=== PATIENT | female | born 1940 | race Hispanic/Latino ===

== ENCOUNTER 2016-10-03 14:31 | Inpatient (IN) | payer MEDICARE, OTHER ==
[2016-10-03 14:35] VITALS: BMI 44.9
--- NOTE | 2016-10-03 14:36 | ED PDOC ---
Arrival/HPI - General Time Seen by Provider: 10/03/16 14:32 Historian: Patient - History of Present Illness Narrative History of Present Illness (Text): 10/03/16 14:36 76 y/o female, pmh including varicose vein/obesity/copd/dm/hyperlipidemia/htn/ adrenal adenoma, nkda, biba c/o Rt. lower leg redness/swelling and pain started for the past 2 days. Pt. stated that she has chronic pedal edema, rt. lower extremity has been having skin breaking with redness, painful to touch and admits feeling warm, no fever or chills, no night sweat, painful to walk, no toe discoloration. Pt. went to see Dr. Phelps this afternoon and refer to the ER for further evaluation, no other medical or psychological complaints. Past Medical History - Provider Review Nursing Documentation Reviewed: Yes - Infectious Disease Hx of Infectious Diseases: None - Cardiac Hx Hypertension: Yes Hx Peripheral Edema: Yes Hx Peripheral Vascular Disease: Yes - Pulmonary Hx Chronic Obstructive Pulmonary Disease (COPD): Yes - Neurological Hx Neurological Disorder: No - HEENT Hx Cataracts: Yes (RIGHT EYE) - Renal Hx Renal Disorder: No - Endocrine/Metabolic Hx Diabetes Mellitus Type 2: Yes - Hematological/Oncological Hx Blood Disorders: No - Integumentary Hx Dermatological Disorder: No - Musculoskeletal/Rheumatological Hx Arthritis: Yes Hx Back Pain: Yes Hx Unsteady Gait: Yes - Gastrointestinal Hx Gastrointestinal Disorders: Yes (HERNIA) - Genitourinary/Gynecological Hx Genitourinary Disorders: Yes Hx Incontinence: Yes (URGE) Hx Reproductive Disorders: No - Psychiatric Hx Psychophysiologic Disorder: No Hx Substance Use: No - Surgical History Hx Cholecystectomy: Yes Hx Hysterectomy: Yes - Anesthesia Hx Anesthesia: Yes Hx Anesthesia Reactions: No Hx Malignant Hyperthermia: No - Suicidal Assessment Feels Threatened In Home Enviroment: No Family/Social History - Physician Review Nursing Documentation Reviewed: Yes Family/Social History: Unknown Family HX Smoking Status: Heavy Smoker > 10 Cigarettes Daily Hx Alcohol Use: No Hx Substance Use: No Allergies/Home Meds Allergies/Adverse Reactions: Allergies No Known Allergies Allergy (Verified 02/18/16 12:34) Home Medications: Home Meds Medication Instructions Recorded Confirmed Metformin HCl 1,000 mg PO BID 07/15/11 10/03/16 Rosuvastatin Calcium [Crestor] 10 mg PO DAILY 07/15/11 10/03/16 Fluticasone/Salmeterol 250/50 1 puff NEB PRN PRN 04/26/14 10/03/16 [Advair Diskus 250/50] Tiotropium [place] Inhaler 1 cap NEB DAILY 04/26/14 10/03/16 [Spiriva Inhalation Handihaler Device] Glipizide [Glipizide ER] 5 mg PO BID 02/18/16 10/03/16 Lisinopril [Zestril] 40 mg PO BID 02/18/16 10/03/16 Review of Systems - Review of Systems Constitutional: absent: Fatigue, Fevers Eyes: absent: Vision Changes ENT: absent: Hearing Changes Respiratory: Cough. absent: SOB, Sputum, Wheezing Cardiovascular: absent: Chest Pain Gastrointestinal: absent: Abdominal Pain, Nausea, Vomiting Genitourinary Female: absent: Dysuria Musculoskeletal: absent: Arthralgias Skin: Rash, Skin Lesions, Cellulitis. absent: Pruritis, Laceration, Abscess, Ulcer Neurological: absent: Headache, Dizziness Physical Exam Vital Signs Temp Pulse Resp BP Pulse Ox 10/03/16 18:05 85 19 139/62 93 L 10/03/16 15:18 98.8 F 80 19 168/92 H 94 L 10/03/16 14:35 98.8 F 80 19 168/92 H 94 L Temperature: Afebrile Blood Pressure: Hypertensive Pulse: Regular Respiratory Rate: Normal Appearance: Positive for: Ill-Appearing, Unkept, Uncomfortable Pain Distress: Severe Mental Status: Positive for: Alert and Oriented X 3 - Systems Exam Head: Present: Atraumatic, Normocephalic Pupils: Present: PERRL Extroacular Muscles: Present: EOMI Conjunctiva: Present: Normal Mouth: Present: Moist Mucous Membranes Neck: Present: Normal Range of Motion Respiratory/Chest: Present: Clear to Auscultation, Good Air Exchange. No: Respiratory Distress, Accessory Muscle Use Cardiovascular: Present: Regular Rate and Rhythm, Normal S1, S2, Other (2+ pedal edema noted on the bilateral lower extremities. ). No: Murmurs Abdomen: Present: Normal Bowel Sounds. No: Tenderness, Distention, Peritoneal Signs Back: Present: Normal Inspection Upper Extremity: Present: Normal Inspection. No: Cyanosis, Edema Lower Extremity: Present: Normal Inspection, Other (+Rt. lower extremity with skin breaking with redness and cellulitis along with clear fluid discharge noted with no dark skin discoloration, +streaking cellulitis from the proximal 1 /3 cellulitis to the rt. dorsum foot. ). No: Edema Neurological: Present: GCS=15, Speech Normal, Motor Func Grossly Intact, Memory Normal Skin: Present: Warm, Dry, Normal Color. No: Rashes Psychiatric: Present: Alert, Oriented x 3, Normal Insight, Normal Concentration Medical Decision Making ED Course and Treatment: 10/03/16 14:46 -labs/blood culture -Chest and rt. tibia/fibula xray -RLE venuous doppler -IV vancomycin/zosyn/morphine 2mg -Observe and reassess 10/03/16 16:02 -EKG : NSR @ 78 BPM, no ST elevation or depression, no T wave inversion. -Chest x-ray show no active disease, +COPD noted -Rt. tibia/fibula xray: soft tissue swelling, no other significant acute findings. -RLE Venuous doppler: as per preliminary report, no acute DVT -Labs are non-significant -Pt. will need to be admitted for IV antibiotics due to the high risk factor for MRSA and worsening of the cellulitis due to the multiple comorbitiditie with poor wound healing. -I discussed with the patient, and she agreed to be admitted. 10/03/16 16:02 -I spoke to Dr. Beauchamp and Dr. Louise, discussed labs/radiology results in detail, agreed on the admission -Dr. Louise will put in the admission. - Lab Interpretations Microbiology Results: Microbiology Results 10/03/16 15:15 Blood-Venous Blood Culture - Preliminary NO GROWTH AFTER 3 DAYS 10/03/16 14:45 Blood-Venous Blood Culture - Preliminary NO GROWTH AFTER 3 DAYS Lab Results: 10/03/16 14:45 10/03/16 14:45 Lab Results 10/03/16 15:17: Urine Color Yellow, Urine Appearance Clear, Urine pH 6.0, Ur Specific [place] 1.010, Urine Protein Trace H, Urine Glucose (UA) Negative, Urine Ketones Negative, Urine Blood Trace-lysed H, Urine Nitrate Negative, Urine Bilirubin Negative, Urine Urobilinogen 0.2, Ur Leukocyte Esterase Negative , Urine RBC 0 - 2, Urine WBC 1 - 3, Ur Epithelial Cells 0 - 2 10/03/16 15:10: POC Glucose (mg/dL) 66 10/03/16 14:45: Sodium 139, Potassium 3.9, Chloride 104, Carbon Dioxide 26, Anion Gap 13, BUN 8, Creatinine 0.6, Est GFR ( Amer) > 60, Est GFR (Non- Af Amer) > 60, Random Glucose 73, Calcium 9.4, Total Bilirubin 0.7, AST 20, ALT 24, Alkaline Phosphatase 72, NT-Pro-B Natriuret Pep 312, Total Protein 7.6, Albumin 3.9, Globulin 3.7, Albumin/Globulin Ratio 1.1 10/03/16 14:45: WBC 9.4, RBC 4.59, Hgb 13.6, Hct 41.1, MCV 89.5, MCH 29.6, MCHC 33.1, RDW 13.8, Plt Count 301, MPV 9.1, Gran % 65.2, Lymph % (Auto) 27.4, Kings % (Auto) 5.9, Eos % (Auto) 1.3 L, Baso % (Auto) 0.2, Gran # 6.11, Lymph # 2.6, Kings # 0.6, Eos # 0.1, Baso # 0.02 I have reviewed the lab results: Yes Interpretation: No clinic. lab abnormalty - RAD Interpretation Radiology Orders: 10/03/16 14:40 CHEST PORTABLE [RAD] Stat 10/03/16 14:42 DUPLEX LOWER EXTRM VEIN RIGHT [US] Stat RLE Venuous doppler: as per preliminary report, no acute dvt Chest x-ray: no active disease Rt. Tibia/fibula: soft tissue swelling, no other significant acute findings. 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 - EKG Interpretation Interpreted by ED Physician: Yes Type: 12 lead EKG - Medication Orders Current Medication Orders: Discontinued Medications Acetaminophen (Tylenol 325mg Tab) 650 mg PO Q4H PRN PRN Reason: Pain, Mild (1-3) Arformoterol Tartrate (Brovana) 15 mcg [facility]H [id number] [facility] Last Admin: 10/06/16 07:45 Dose: 15 mcg Atorvastatin Calcium (Lipitor) 40 mg PO DAILY [facility] Last Admin: 10/06/16 09:28 Dose: 40 mg Budesonide (Pulmicort Respules) 0.5 mg IH [id number] [facility] Last Admin: 10/06/16 07:46 Dose: 0.5 mg Furosemide (Lasix) 20 mg PO BID [facility] Last Admin: 10/06/16 09:29 Dose: 20 mg Glipizide (Glucotrol Xl) 5 mg PO BID [facility] Last Admin: 10/06/16 09:28 Dose: 5 mg Vancomycin HCl (Vancomycin 1gm) 1 gm in 250 mls @ 167 mls/hr IVPB STAT STA PRN Reason: Protocol Stop: 10/03/16 16:09 Last Admin: 10/03/16 15:31 Dose: 167 mls/hr Piperacillin Sod/Tazobactam Sod (Zosyn 3.375 In Ns 100ml) 100 mls @ 200 mls/hr IVPB STAT STA PRN Reason: Protocol Stop: 10/03/16 15:09 Last Admin: 10/03/16 14:58 Dose: 200 mls/hr Vancomycin HCl (Vancomycin 750 Mg In Ns) 750 mg in 250 mls @ 167 mls/hr IVPB Q12H ALEXANDRE PRN Reason: Protocol Last Admin: 10/06/16 05:29 Dose: 167 mls/hr Meropenem 1g/NS 100mL IVPB (Meropenem 1g/Ns 100ml Ivpb) 1 gm in 100 mls @ 100 mls/hr IVPB Q12 ALEXANDRE PRN Reason: Protocol Stop: 10/10/16 23:01 Last Admin: 10/06/16 09:30 Dose: 100 mls/hr Insulin Human Regular (Humulin R Low) 0 units SC ACHS ALEXANDRE PRN Reason: Protocol Last Admin: 10/06/16 08:07 Dose: Not Given Non-Admin Reason: Blood Sugar Parameter Lisinopril (Zestril) 40 mg PO BID [facility] Last Admin: 10/06/16 09:28 Dose: 40 mg Morphine Sulfate (Morphine) 2 mg IVP STAT STA Stop: 10/03/16 14:45 Last Admin: 10/03/16 14:59 Dose: 2 mg Nicotine (Nicoderm Cq) 1 patch TD DAILY [facility] Last Admin: 10/06/16 09:28 Dose: 1 patch Oxycodone/Acetaminophen (Percocet 5/325 Mg Tab) 1 tab PO Q4H PRN PRN Reason: Pain, moderate (4-7) Stop: 10/06/16 18:23 Last Admin: 10/05/16 18:07 Dose: 1 tab Pneumococcal Polyvalent Vaccine (Pneumovax 23 Vaccine) 0.5 ml IM .ONCE ONE Stop: 10/03/16 23:36 Tiotropium [place] (Spiriva) 18 mcg INH DAILY [facility] Last Admin: 10/06/16 09:28 Dose: 18 mcg - PA / 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 Disposition/Present on Arrival - Present on Arrival Any Indicators Present on Arrival: No History of DVT/PE: No History of Uncontrolled Diabetes: No Urinary Catheter: No History of Decub. Ulcer: No History Surgical Site Infection Following: None - Disposition Have Diagnosis and Disposition been Completed?: Yes Diagnosis: Cellulitis, Pedal edema Disposition: HOSPITALIZED Disposition Time: 14:47 Patient Plan: Admission Condition: STABLE
[2016-10-03] MEDS ORDERED: Vancomycin 1gm in NS 250ml 1 GM/250 ML BAG IVPB STA (14:40)
[2016-10-03] MEDS ORDERED: Piperacillin/Tazobact 3.375 gm 100 ML IVPB STA (14:40)
[2016-10-03] MEDS ORDERED: Morphine 2 mg/ml ISec IVP STA (14:44)
[2016-10-03 15:02] LABS: BASO # 0.02 K/mm3 (0.0-2.0); BASO % 0.2 % (0.0-3.0); EOS # 0.1 (0.0-0.7); EOS % 1.3 % (1.5-5.0); GRAN # 6.11 (1.4-6.5); GRAN % 65.2 % (50.0-68.0); HEMOGLOBIN 13.6 gm/dL (12.0-16.0); LYMPH # 2.6 (1.2-3.4); LYMPH % 27.4 % (22.0-35.0); MEAN CELL VOLUME 89.5 fL (80.0-105.0); MEAN CORPUSCULAR HEMOGLOBIN 29.6 pg (25.0-35.0); MEAN CORPUSCULAR HGB CONC 33.1 g/dl (31.0-37.0); MEAN PLATELET VOLUME 9.1 fl (7.0-11.0); MONO # 0.6 (0.1-0.6); MONO % 5.9 % (1.0-6.0); PLATELET COUNT 301 10^3/uL (120.0-450.0); RBC 4.59 10^6/uL (3.5-6.1); RED CELL DISTRIBUTION WIDTH 13.8 % (11.5-14.5); WHITE BLOOD COUNT 9.4 10^3/ul (4.5-11.0)
[2016-10-03 15:10] LABS: ALB/GLOB RATIO 1.1 (1.1-1.8); ALBUMIN 3.9 g/dL (3.0-4.8); ALT/SGPT 24 U/L (7-56); AST/SGOT 20 U/L (15-39); BLOOD UREA NITROGEN 8 mg/dL (7-21); CALCIUM 9.4 mg/dL (8.4-10.5); GFR AFRICAN-AMERICAN > 60; GFR NON-AFRICAN AMERICAN > 60
[2016-10-03 15:17] LABS: B-TYPE NATRIURETIC PEPTIDE 312 pg/mL (0-450)
[2016-10-03 15:38] LABS: URINE BILIRUBIN NEGATIVE (NEGATIVE); URINE BLOOD TRACE-LYSED (NEGATIVE); URINE GLUCOSE (UA) NEGATIVE (NEGATIVE); URINE LEUKOCYTE ESTERASE NEGATIVE Leu/uL (NEGATIVE); URINE NITRATE NEGATIVE (NEGATIVE); URINE PROTEIN TRACE mg/dL (<30 mg/dL); URINE UROBILINOGEN 0.2 E.U./dL (<1 E.U./dL)
[2016-10-03 15:41] LABS: URINE APPEARANCE CLEAR (CLEAR); URINE COLOR YELLOW (YELLOW)
[2016-10-03 15:56] LABS: URINE EPITHELIAL CELLS 0 - 2 /hpf (0-5); URINE RBC 0 - 2 /hpf (0-2)
--- NOTE | 2016-10-03 17:44 | RAD ---
PROCEDURE: Radiographs of the right tibia and fibula. HISTORY: rt. tibia cellulitis COMPARISON: None available. TECHNIQUE: Frontal and lateral views obtained. FINDINGS: BONES: No fracture or destructive lesion. JOINT SPACES: Unremarkable. OTHER FINDINGS: Diffuse calf edema, soft tissue swelling IMPRESSION: Soft tissue swelling without acute articular or significant osseous abnormality. Concordant results with the preliminary interpretation rendered by the emergency department physician procedure.
[2016-10-03] MEDS: GlipiZIDE 5 mg SR Tab PO SCH (18:48)
[2016-10-03] MEDS: Oxycodone/Acetaminophen 5/325 mg Tab PO PRN (21:27)
[2016-10-03] MEDS: Insulin Reg-LOW-Coverage SC SCH (22:29)
[2016-10-03] MEDS ORDERED: Pneumococcal 23-Valent Vaccine IM ONE (23:35)
[2016-10-03] MEDS: Meropenem 1g/NS 100mL IVPB 1 GM/100 ML PIGGYBACK IVPB SCH (23:48)
[2016-10-04] MEDS: Vancomycin 750mg 750 MG/250 ML BAG IVPB SCH ×2 (05:22→17:28)
[2016-10-04] MEDS: Arformoterol 15 mcg/2 ml Inh Sol IH SCH ×2 (07:43→21:33)
[2016-10-04] MEDS: Budesonide 0.5 mg/2 ml Inhal Susp UD IH SCH ×2 (07:44→21:35)
[2016-10-04] MEDS: Insulin Reg-LOW-Coverage SC SCH ×4 (08:15→21:19)
[2016-10-04] MEDS ORDERED: Fluticasone-Salmeterol 250-50mcg Diskus INH SCH (10:00)
[2016-10-04] MEDS: Tiotropium 18 mcg Cap For Inhalation INH SCH (10:13)
[2016-10-04] MEDS: GlipiZIDE 5 mg SR Tab PO SCH ×2 (10:13→17:29)
--- NOTE | 2016-10-04 10:39 | CARD ---
APPROVED REPORT EKG Measurement Heart [id number] [place] 148P [id number] <Conclusion> Normal sinus rhythm PRWP Nonspecific ST abnormality No change
--- NOTE | 2016-10-04 12:28 | RAD ---
HISTORY: medical clearance COMPARISON: 02/18/2016 FINDINGS: LUNGS: No active pulmonary disease. PLEURA: No significant pleural effusion identified, no pneumothorax apparent. CARDIOVASCULAR: Mild cardiomegaly OSSEOUS STRUCTURES: No significant abnormalities. VISUALIZED UPPER ABDOMEN: Normal. OTHER FINDINGS: None. IMPRESSION: No active disease.
--- NOTE | 2016-10-04 13:58 | US ---
PROCEDURE: Right lower extremity venous US HISTORY: Leg pain and swelling. Evaluate for DVT. PHYSICIAN(S): Kenny Burden M.D. TECHNIQUE: Duplex sonography and color-flow Doppler with graded compression were used to evaluate the deep venous system of the right lower extremity. The exam is limited by edema. The tibial veins are not well seen FINDINGS: The visualized deep venous system of the right lower extremity is sonographically normal and compressible. Normal waveforms and augmentation are seen. There is no sonographic evidence for deep venous thrombosis in the visualized segments of the right lower extremity. IMPRESSION: 1. No sonographic evidence for deep venous thrombosis in the visualized segments of the right lower extremity. 2. Limited study
--- NOTE | 2016-10-04 14:01 | CP.PCM.CON ---
History of Present Illness - History of Present Illness History of Present Illness: 76 year old female with PMH of hypertension, bilateral lower extremity edema, peripheral vascular disease, diabetes, hyperlipidemia, varicose veins, adrenal adenoma, and osteoarthritis, history of right lower extremity cellulitis, morbid obesity with BMI 45 came in to [facility] complaining of pain and swelling of her right lower extremity associated with redness. She denies specific trauma to the leg, no soaking of legs in water, no swimming, no trips to the [place], denies insect or tick bites. She has a dog at home but has no history of scratches or bites from her dog. She denies fever or chills, no nausea or vomiting, no chest pain, no SOB, no headache or dizziness, no diarrhea , no dysuria, no abdominal pain. Infectious diseases consult is requested to further evaluate and manage. Review of Systems - Review of Systems All systems: reviewed and no additional remarkable complaints except (as per HPI ) Past Patient History - Infectious Disease Hx of Infectious Diseases: None - Past Social History Smoking Status: Heavy Smoker > 10 Cigarettes Daily - CARDIAC Hx Hypertension: Yes Hx Peripheral Edema: Yes Hx Peripheral Vascular Disease: Yes - PULMONARY Hx Chronic Obstructive Pulmonary Disease (COPD): Yes - NEUROLOGICAL Hx Neurological Disorder: No - HEENT Hx Cataracts: Yes (RIGHT EYE) - RENAL Hx Chronic Kidney Disease: No - ENDOCRINE/METABOLIC Hx Diabetes Mellitus Type 2: Yes - HEMATOLOGICAL/ONCOLOGICAL Hx Blood Disorders: No - INTEGUMENTARY Hx Dermatological Problems: No - MUSCULOSKELETAL/RHEUMATOLOGICAL Hx Arthritis: Yes Hx Back Pain: Yes Hx Unsteady Gait: Yes - GASTROINTESTINAL Hx Gastrointestinal Disorders: Yes (HERNIA) - GENITOURINARY/GYNECOLOGICAL Hx Genitourinary Disorders: Yes Hx Incontinence: Yes (URGE) Hx Reproductive Disorders: No - PSYCHIATRIC Hx Psychophysiologic Disorder: No Hx Substance Use: No - SURGICAL HISTORY Hx Cholecystectomy: Yes Hx Hysterectomy: Yes - ANESTHESIA Hx Anesthesia: Yes Hx Anesthesia Reactions: No Hx Malignant Hyperthermia: No Meds Allergies/Adverse Reactions: Allergies Allergy/AdvReac Type Severity Reaction Status Date / Time No Known Allergies Allergy Verified 02/18/16 12:34 - Medications Medications: Current Medications Acetaminophen (Tylenol 325mg Tab) 650 mg PO Q4H PRN PRN Reason: Pain, Mild (1-3) Arformoterol Tartrate (Brovana) 15 mcg IH [id number] ALEXANDRE Atorvastatin Calcium (Lipitor) 40 mg PO DAILY ALEXANDRE Budesonide (Pulmicort Respules) 0.5 mg IH [id number] ALEXANDRE Furosemide (Lasix) 20 mg PO BID ALEXANDRE Glipizide (Glucotrol Xl) 5 mg PO BID [facility] Last Admin: 10/03/16 18:48 Dose: 5 mg Insulin Human Regular (Humulin R Low) 0 units SC ACHS ALEXANDRE PRN Reason: Protocol Last Admin: 10/03/16 22:29 Dose: Not Given Lisinopril (Zestril) 40 mg PO BID [facility] Oxycodone/Acetaminophen (Percocet 5/325 Mg Tab) 1 tab PO Q4H PRN PRN Reason: Pain, moderate (4-7) Stop: 10/06/16 18:23 Last Admin: 10/03/16 21:27 Dose: 1 tab Tiotropium [place] (Spiriva) 18 mcg INH DAILY [facility] Physical Exam - Constitutional Appears: Non-toxic, No Acute Distress - Head Exam Head Exam: NORMAL INSPECTION - ENT Exam ENT Exam: Mucous Membranes Moist - Neck Exam Neck exam: Negative for: Lymphadenopathy, Meningismus - Respiratory Exam Respiratory Exam: Decreased Breath Sounds - Cardiovascular Exam Cardiovascular Exam: +S1, +S2 - GI/Abdominal Exam GI & Abdominal Exam: Soft. absent: Tenderness - Extremities Exam Additional comments: right leg with anterior erythema, swelling, and some tenderness noted Results - Vital Signs Recent Vital Signs: Last Vital Signs Temp 98.8 F 10/03/16 15:18 Pulse 85 10/03/16 18:05 Resp 19 10/03/16 18:05 BP 139/62 10/03/16 18:05 Pulse Ox 93 L 10/03/16 18:05 - Labs Result Diagrams: 10/03/16 14:45 10/03/16 14:45 Labs: Laboratory Results - last 24 hr 10/03/16 21:47 POC Glucose (mg/dL) 256 H Assessment & Plan - Assessment and Plan (Free Text) Plan: Assessment Right lower extremity skin and skin structure infection, R/O DVT history of right foot skin and skin structure infection with associated ankle ulcer with wound cx from 02/06/2016 growing MRSA and Pseudomonas hypertension bilateral lower extremity edema peripheral vascular disease diabetes hyperlipidemia varicose veins adrenal adenoma osteoarthritis history of right lower extremity cellulitis morbid obesity Plan based on previous cultures, we have started the patient on Vancomycin and Merrem pending blood cx follow up doppler ultrasound of the legs to rule out DVT will monitor clinically
[2016-10-04] MEDS: Oxycodone/Acetaminophen 5/325 mg Tab PO PRN ×2 (15:32→20:19)
--- NOTE | 2016-10-04 15:48 | CON ---
DATE: 10/03/2016 HISTORY OF PRESENT ILLNESS: This is a 76-year-old women admitted, because of progressive lower extremity edema and cellulitis seen in Dr. Phelps's office and referred to the emergency room for evaluation and treatment. She states that the legs have become more swollen and painful and there has been some weeping from the skin lesions. She has chronic lower extremity edema, peripheral arterial disease and ulcerations. There was no chest pain. There is chronic dyspnea on exertion, which has not changed. There is no orthopnea, PND, syncope, presyncope, lightheadedness, dizziness, vertigo, palpitations, fevers, chills, cough, sputum production, hemoptysis, abdominal pain, nausea, vomiting, diarrhea, constipation, or melena. PAST MEDICAL HISTORY: Notable for COPD. She is a current one pack per day smoker. She has a history of diabetes, hypertension, hyperlipidemia, obesity, peripheral arterial disease with ulcerations right foot, varicose veins , osteoarthritis, cataracts, but no rheumatic fever, myocardial infarction, angina, congestive heart failure, stroke, TIA or gout. MEDICATIONS: At the time of admission included Advair, Crestor, glipizide, Lasix, metformin, Spiriva and Zestril. ALLERGIES: THERE ARE NO KNOWN MEDICATION ALLERGIES. SOCIAL HISTORY: She lives at home. She does not drink alcohol significantly. She smokes about one pack of cigarettes per day. She is not very ambulatory. FAMILY HISTORY: Noncontributory. REVIEW OF SYSTEMS: A 10-point review of systems otherwise was unremarkable, except as noted above. PHYSICAL EXAMINATION: GENERAL: She is a well-developed elderly women, sitting on the bed from 3 hour in no acute distress. VITAL SIGNS: Notable for pulse of 66, she is a afebrile, blood pressure 131/60, respirations 19 to 22, O2 sat 90% to 93% on room air. HEENT: Reveals no neck vein distention, thyromegaly or carotid bruits. Mucous membranes moist. Conjunctivae pink. NECK: Supple. LUNGS: Lung elizondo scattered rhonchi. HEART: Reveals distant heart sounds, normal first and second heart sounds. Soft systolic murmur along the left sternal border. PMI not palpable. ABDOMEN: Obsess, bowel sounds present. No mass, organomegaly, tenderness, rebound, guarding, CVA tenderness or palpable abdominal aortic aneurysm. EXTREMITIES: Revealed edema with chronic skin changes. NEUROLOGIC: She is awake, alert, and oriented. PSYCHIATRIC: Normal as to mood and affect. SKIN: Warm and dry with chronic skin changes both lower extremities to the shins. LABORATORY AND IMAGING DATA: A portable chest x-ray is not yet interpreted. I do not see evidence of congestive heat failure, effusion or pneumonia. The EKG demonstrates regular sinus rhythm, poor R wave progression, nonspecific ST wave changes, prolonged QT. No change from prior EKG, lower extremity venous Doppler was done, but the reports are not yet available. CBC is unremarkable. Comprehensive metabolic panel unremarkable. Blood sugars range from 66 to 256. Urinalysis is noted. IMPRESSION: Mi Casarez is a 76-year-old women smoker with chronic obstructive pulmonary disease, obesity, diabetes, hypertension, peripheral arterial disease, chronic lower extremity edema, and stasis changes admitted with worsening lower extremity edema possible cellulitis for evaluation. She is getting Lasix b.i.d., her usual medications have been ordered. I ordered echocardiogram. We should monitor I's and O's and daily weights. She will have ID evaluation. A lower extremity venous Doppler study was done, the results are pending. She has been cultured, she is getting antibiotics. I spoke to her about smoking cessation. I will follow along with you, make additional recommendations based on her clinical course. Alessio Young MD [email or web address]
[2016-10-04] MEDS: Meropenem 1g/NS 100mL IVPB 1 GM/100 ML PIGGYBACK IVPB SCH (21:56)
[2016-10-05] MEDS: Oxycodone/Acetaminophen 5/325 mg Tab PO PRN ×2 (03:30→18:07)
[2016-10-05] MEDS: Vancomycin 750mg 750 MG/250 ML BAG IVPB SCH ×2 (05:14→18:01)
[2016-10-05] MEDS: Arformoterol 15 mcg/2 ml Inh Sol IH SCH ×2 (07:51→21:30)
[2016-10-05] MEDS: Budesonide 0.5 mg/2 ml Inhal Susp UD IH SCH ×2 (07:52→21:30)
--- NOTE | 2016-10-05 08:01 | CP.PCM.PN ---
Subjective - Date & Time of Evaluation Date of Evaluation: 10/05/16 Time of Evaluation: 07:00 - Subjective Subjective: Stable on 3R. No CP or SOB. + edema. V/S noted. Wt.= 262 PE: Lungs: rhonchi Cor.: soft SANGEETA Abd.: obese Ext.: edema;, chronic skin changes, cellulitis Neuro.: alert BC x2 NG at 24 hrs. LE venous Doppler RLE: No DVT Objective - Vital Signs/Intake and Output Vital Signs (last 24 hours): Temp Pulse Resp BP Pulse Ox 98.0 F 85 22 135/47 L 90 L 10/04/16 06:00 10/04/16 07:43 10/04/16 06:00 10/04/16 17:26 10/04/16 06:00 Intake and Output: 10/05/16 10/05/16 06:59 18:59 Intake Total 2280 Balance 2280 - Medications Medications: Current Medications Acetaminophen (Tylenol 325mg Tab) 650 mg PO Q4H PRN PRN Reason: Pain, Mild (1-3) Arformoterol Tartrate (Brovana) 15 mcg IH [id number] [facility] Last Admin: 10/04/16 21:33 Dose: 15 mcg Atorvastatin Calcium (Lipitor) 40 mg PO DAILY [facility] Last Admin: 10/04/16 10:13 Dose: 40 mg Budesonide (Pulmicort Respules) 0.5 mg IH [id number] [facility] Last Admin: 10/04/16 21:35 Dose: 0.5 mg Furosemide (Lasix) 20 mg PO BID [facility] Last Admin: 10/04/16 17:26 Dose: 20 mg Glipizide (Glucotrol Xl) 5 mg PO BID [facility] Last Admin: 10/04/16 17:29 Dose: 5 mg Vancomycin HCl (Vancomycin 750 Mg In Ns) 750 mg in 250 mls @ 167 mls/hr IVPB Q12H [facility]RE PRN Reason: Protocol Last Admin: 10/05/16 05:14 Dose: 167 mls/hr Meropenem 1g/NS 100mL IVPB (Meropenem 1g/Ns 100ml Ivpb) 1 gm in 100 mls @ 100 mls/hr IVPB Q12 [facility]RE PRN Reason: Protocol Stop: 10/10/16 23:01 Last Admin: 10/04/16 21:56 Dose: 100 mls/hr Insulin Human Regular (Humulin R Low) 0 units SC ACHS ALEXANDRE PRN Reason: Protocol Last Admin: 10/04/16 21:19 Dose: Not Given Lisinopril (Zestril) 40 mg PO BID [facility] Last Admin: 10/04/16 17:26 Dose: 40 mg Nicotine (Nicoderm Cq) 1 patch TD DAILY [facility] Last Admin: 10/04/16 20:57 Dose: 1 patch Oxycodone/Acetaminophen (Percocet 5/325 Mg Tab) 1 tab PO Q4H PRN PRN Reason: Pain, moderate (4-7) Stop: 10/06/16 18:23 Last Admin: 10/05/16 03:30 Dose: 1 tab Tiotropium [place] (Spiriva) 18 mcg INH DAILY [facility] Last Admin: 10/04/16 10:13 Dose: 18 mcg Assessment and Plan - Assessment and Plan (Free Text) Assessment: Edema/Cellulitis RLE and foot. H/O cellulitis and ulceration COPD/Smoker Diabetes HLD HBP Obesity OA PAD Venous Insufficiency Plan: As per ID: AB, check cultures PO Lasix Check echo Smoking Cessation
[2016-10-05] MEDS: Insulin Reg-LOW-Coverage SC SCH ×4 (08:27→22:08)
--- NOTE | 2016-10-05 09:11 | CARD ---
APPROVED REPORT EXAM: Two-dimensional and M-mode echocardiogram with Doppler and color Doppler. Other Information Quality : FairRhythm : INDICATION COPD , Edema, Cellulitis. 2D DIMENSIONS IVSd1.2 (0.7-1.1cm)LVDd3.4 (3.9-5.9cm) LVOT Diameter2.2 (1.8-2.4cm)PWd1.2 (0.7-1.1cm) LVDs2.6 (2.5-4.0cm)FS (%) 21.2 % LVEF (%)44.0 (>50%) M-Mode DIMENSIONS Left Atrium (MM)4.40 (2.5-4.0cm)Aortic Root2.90 (2.2-3.7cm) Aortic Cusp Exc.1.90 (1.5-2.0cm) Aortic Valve AoV Peak Nwityqij333.0cm/sAoV VTI61.5cmAO Peak GR.32mmHg LVOT Peak Tvooeikv05.7cm/sLVOT VTI24.40cmAO Mean GR.20mmHg Mitral Valve MV E Vgszqjrp894.0cm/sMV A Bpvkfxft660.0cm/sE/A ratio1.0 TDI Lateral E' Peak V6.04cm/sMedial E' Peak V4.68cm/sE/Lateral E'19.9 E/Medial E'25.6 Tricuspid Valve TR Peak Zqbleaaa300bt/sRAP [id number] Peak Gr.16mmHg [id number] LEFT VENTRICLE The left ventricle is normal size. There is normal left ventricular wall thickness. Left ventricle systolic function is mildly impaired. The Ejection Fraction is 45-50%. RIGHT VENTRICLE The right ventricle is normal size. ATRIA The left atrium is mildly dilated. The right atrium size is normal. The interatrial septum is intact with no evidence for an atrial septal defect. AORTIC VALVE The aortic valve is not well visualized. By Doppler exam there is mild . MITRAL VALVE The mitral valve is normal in structure. Mitral annular calcification is mild. Mitral regurgitation is trace. TRICUSPID VALVE The tricuspid valve is normal in structure. There is trace tricuspid regurgitation. PULMONIC VALVE The pulmonic valve is not well visualized. PERICARDIAL EFFUSION There is no pericardial effusion. <Conclusion> The left ventricle is normal size. There is normal left ventricular wall thickness. Left ventricle systolic function is mildly impaired. The Ejection Fraction is 45-50%. The aortic valve is not well visualized. By Doppler exam there is mild .
[2016-10-05] MEDS: GlipiZIDE 5 mg SR Tab PO SCH ×2 (10:40→18:00)
[2016-10-05] MEDS: Meropenem 1g/NS 100mL IVPB 1 GM/100 ML PIGGYBACK IVPB SCH ×2 (10:41→22:49)
[2016-10-05] MEDS: Tiotropium 18 mcg Cap For Inhalation INH SCH (10:42)
--- NOTE | 2016-10-05 11:48 | CP.PCM.PN ---
Subjective - Date & Time of Evaluation Date of Evaluation: 10/05/16 Time of Evaluation: 10:45 - Subjective Subjective: Comfortable, a little less pain in the legs, no fevers. Objective - Vital Signs/Intake and Output Vital Signs (last 24 hours): Temp Pulse Resp BP Pulse Ox 98.0 F 85 22 135/47 L 90 L 10/04/16 06:00 10/04/16 07:43 10/04/16 06:00 10/04/16 17:26 10/04/16 06:00 Intake and Output: 10/04/16 10/05/16 18:59 06:59 Intake Total 2280 Balance 2280 - Medications Medications: Current Medications Acetaminophen (Tylenol 325mg Tab) 650 mg PO Q4H PRN PRN Reason: Pain, Mild (1-3) Arformoterol Tartrate (Brovana) 15 mcg IH [id number] [facility] Last Admin: 10/04/16 21:33 Dose: 15 mcg Atorvastatin Calcium (Lipitor) 40 mg PO DAILY [facility] Last Admin: 10/04/16 10:13 Dose: 40 mg Budesonide (Pulmicort Respules) 0.5 mg IH [id number] [facility] Last Admin: 10/04/16 21:35 Dose: 0.5 mg Furosemide (Lasix) 20 mg PO BID [facility] Last Admin: 10/04/16 17:26 Dose: 20 mg Glipizide (Glucotrol Xl) 5 mg PO BID [facility] Last Admin: 10/04/16 17:29 Dose: 5 mg Vancomycin HCl (Vancomycin 750 Mg In Ns) 750 mg in 250 mls @ 167 mls/hr IVPB Q12H [facility] PRN Reason: Protocol Last Admin: 10/05/16 05:14 Dose: 167 mls/hr Meropenem 1g/NS 100mL IVPB (Meropenem 1g/Ns 100ml Ivpb) 1 gm in 100 mls @ 100 mls/hr IVPB Q12 [facility] PRN Reason: Protocol Stop: 10/10/16 23:01 Last Admin: 10/04/16 21:56 Dose: 100 mls/hr Insulin Human Regular (Humulin R Low) 0 units SC ACHS [facility] PRN Reason: Protocol Last Admin: 10/04/16 21:19 Dose: Not Given Lisinopril (Zestril) 40 mg PO BID [facility] Last Admin: 10/04/16 17:26 Dose: 40 mg Nicotine (Nicoderm Cq) 1 patch TD DAILY [facility] Last Admin: 10/04/16 20:57 Dose: 1 patch Oxycodone/Acetaminophen (Percocet 5/325 Mg Tab) 1 tab PO Q4H PRN PRN Reason: Pain, moderate (4-7) Stop: 10/06/16 18:23 Last Admin: 10/05/16 03:30 Dose: 1 tab Tiotropium [place] (Spiriva) 18 mcg INH DAILY [facility] Last Admin: 10/04/16 10:13 Dose: 18 mcg - Constitutional Appears: Non-toxic, No Acute Distress - Head Exam Head Exam: NORMAL INSPECTION - ENT Exam ENT Exam: Mucous Membranes Moist - Neck Exam Neck Exam: absent: Meningismus - Respiratory Exam Respiratory Exam: Decreased Breath Sounds - Cardiovascular Exam Cardiovascular Exam: +S1, +S2 - GI/Abdominal Exam GI & Abdominal Exam: Soft. absent: Tenderness - Extremities Exam Additional comments: right leg with anterior erythema, less tenderness on palpation Assessment and Plan - Assessment and Plan (Free Text) Plan: Assessment Right lower extremity skin and skin structure infection, with no evidence of DVT , in a patient with chronic venous stasis dermatitis history of right foot skin and skin structure infection with associated ankle ulcer with wound cx from 02/06/2016 growing MRSA and Pseudomonas hypertension bilateral lower extremity edema peripheral vascular disease diabetes hyperlipidemia varicose veins adrenal adenoma osteoarthritis history of right lower extremity cellulitis morbid obesity Plan continue Vancomycin and Merrem day 2 pending final blood cx results reviewed doppler ultrasound of the legs which did not show DVT will continue to monitor clinically
[2016-10-05 17:03] VITALS: PULSE 78; RESP 20; TEMP 98.7; O2SAT 98
--- NOTE | 2016-10-05 22:27 | CP.PCM.HP ---
History of Present Illness - History of Present Illness History of Present Illness: Ms. Casarez is a 76 year old female admitted with B/L lower ext. swelling and pain. Doppler of right lower ext negative for DVT. She is morbidly obese. She has PVD. adrenal adenoma. DM II on glipizide. She is able to ambulate. No fever. No SOB. Present on Admission - Present on Admission Any Indicators Present on Admission: No Review of Systems - Constitutional Constitutional: As Per HPI, Fatigue, Malaise - EENT Eyes: absent: As Per HPI, Blind Spots, Blurred Vision, Change in Vision, Decreased Night Vision, Diplopia, Discharge, Dry Eye, Exophthalmos, Floaters, Irritation, Itchy Eyes, Loss of Peripheral Vision, Pain, Photophobia, Requires Corrective Lenses, Sees Flashes, Spots in Vision, Tunnel Vision, Other Visual Disturbances, Loss of Vision, Other Nose/Mouth/Throat: absent: As Per HPI, Epistaxis, Nasal Congestion, Nasal Discharge, Nasal Obstruction, Nasal Trauma, Nose Pain, Post Nasal Drip, Sinus Pain, Sinus Pressure, Bleeding Gums, Change in Voice, Dental Pain, Dry Mouth, Dysphagia, Halitosis, Hoarsness, Lip Swelling, Mouth Lesions, Mouth Pain, Odynophagia, Sore Throat, Throat Swelling, Tongue Swelling, Facial Pain, Neck Pain, Neck Mass, Other - Cardiovascular Cardiovascular: As Per HPI - Respiratory Respiratory: absent: As Per HPI, Cough, Dyspnea, Hemoptysis, Dyspnea on Exertion , Wheezing, Snoring, Stridor, Pain on Inspiration, Chest Congestion, Excessive Mucous Production, Change in Mucous Color, Pain with Coughing, Other - Gastrointestinal Gastrointestinal: absent: As Per HPI, Abdominal Pain, Belching, Bloating, Change in Bowel Habits, Change in Stool Character, Coffee Ground Emesis, Constipation, Cramping, Diarrhea, Dyspepsia, Dysphagia, Early Satiety, Excessive Flatus, Fecal Incontinence, Heartburn, Hematemesis, Hematochezia, Loose Stools, Melena, Nausea, Odynophagia, Temesmus, Vomiting, Other - Genitourinary Genitourinary: absent: As Per HPI, Change in Urinary Stream, Difficulty Urinating, Dysuria, Flank Pain, Hematuria, Pyuria, Nocturia, Urinary Incontinence, Urinary Frequency, Urinary Hesitance, Urinary Urgency, Voiding Freq/Small Amts, Freq UTI, Hx Renal/Bladder Calculi, Hx /Renal Surgery, Bladder Distension, Other - Musculoskeletal Musculoskeletal: As Per HPI - Neurological Neurological: absent: As Per HPI, Abnormal Gait, Abnormal Hearing, Abnormal Movements, Abnormal Speech, Behavioral Changes, Burning Sensations, Confusion, Convulsions, Disequilibrium, Dizziness, Numbness, Focal Weakness, Frequent Falls , Headaches, Lack of Coordination, Loss of Vision, Memory Loss, Paresthesias, Radicular Pain, Restless Legs, Sensory Deficit, Syncope, Tingling, Tremor, Vertigo, Weakness, Other Visual Disturbances, Other - Psychiatric Psychiatric: absent: As Per HPI, Abnormal Sleep Pattern, Anhedonia, Anxiety, Auditory Hallucinations, Behavioral Changes, Change in Appetite, Change in Libido, Confusion, Depression, Difficulty Concentrating, Hallucinations, Homicidal Ideation, Hopelessness, Irritability, Memory Loss, Mood Swings, Panic Attacks, Paranoia, Suicidal Ideation, Visual Hallucinations, Tactile Hallucinations, Other - Endocrine Endocrine: As Per HPI - Hematologic/Lymphatic Hematologic: As Per HPI Past Patient History - Infectious Disease Hx of Infectious Diseases: None - Past Social History Smoking Status: Heavy Smoker > 10 Cigarettes Daily - CARDIAC Hx Hypertension: Yes Hx Peripheral Edema: Yes Hx Peripheral Vascular Disease: Yes - PULMONARY Hx Chronic Obstructive Pulmonary Disease (COPD): Yes - NEUROLOGICAL Hx Neurological Disorder: No - HEENT Hx Cataracts: Yes (RIGHT EYE) - RENAL Hx Chronic Kidney Disease: No - ENDOCRINE/METABOLIC Hx Diabetes Mellitus Type 2: Yes - HEMATOLOGICAL/ONCOLOGICAL Hx Blood Disorders: No - INTEGUMENTARY Hx Dermatological Problems: No - MUSCULOSKELETAL/RHEUMATOLOGICAL Hx Arthritis: Yes Hx Back Pain: Yes Hx Unsteady Gait: Yes - GASTROINTESTINAL Hx Gastrointestinal Disorders: Yes (HERNIA) - GENITOURINARY/GYNECOLOGICAL Hx Genitourinary Disorders: Yes Hx Incontinence: Yes (URGE) Hx Reproductive Disorders: No - PSYCHIATRIC Hx Psychophysiologic Disorder: No Hx Substance Use: No - SURGICAL HISTORY Hx Cholecystectomy: Yes Hx Hysterectomy: Yes - ANESTHESIA Hx Anesthesia: Yes Hx Anesthesia Reactions: No Hx Malignant Hyperthermia: No Meds Allergies/Adverse Reactions: Allergies Allergy/AdvReac Type Severity Reaction Status Date / Time No Known Allergies Allergy Verified 02/18/16 12:34 Physical Exam - Constitutional Appears: Well, Non-toxic - Head Exam Head Exam: ATRAUMATIC, NORMAL INSPECTION, NORMOCEPHALIC - Eye Exam Eye Exam: Normal appearance Pupil Exam: NORMAL ACCOMODATION - ENT Exam ENT Exam: Mucous Membranes Moist, Normal Exam - Neck Exam Neck exam: Positive for: Normal Inspection - Respiratory Exam Respiratory Exam: Clear to Auscultation Bilateral, NORMAL BREATHING PATTERN - Cardiovascular Exam Cardiovascular Exam: REGULAR RHYTHM, +S1, +S2 - GI/Abdominal Exam GI & Abdominal Exam: Normal Bowel Sounds - Extremities Exam Additional comments: B/L leg swelling, B/L leg cellulitis. - Back Exam Back exam: NORMAL INSPECTION, rash noted - Neurological Exam Neurological exam: Alert, CN II-XII Intact, Oriented x3 - Psychiatric Exam Psychiatric exam: Normal Affect, Normal Mood - Skin Skin Exam: Dry, Intact Results - Vital Signs Recent Vital Signs: Last Vital Signs Temp 98.7 F 10/05/16 17:02 Pulse 78 10/05/16 17:02 Resp 20 10/05/16 17:02 BP 152/60 H 10/05/16 18:01 Pulse Ox 98 10/05/16 17:02 - Labs Result Diagrams: 10/03/16 14:45 10/03/16 14:45 Labs: Laboratory Results - last 24 hr 10/05/16 10/05/16 10/05/16 07:40 11:39 16:00 POC Glucose (mg/dL) 129 H 201 H 148 H 10/05/16 21:04 POC Glucose (mg/dL) 205 H Assessment & Plan - Assessment and Plan (Free Text) Assessment: 1. B/L Leg cellulitis. 2. Adrenal adenomas 3. Morbid obesity 4. PVD 5. DM II 6. HTN Plan : ID consult requested. IV antibiotics vanco and meropenem as per ID. Doppler lower ext negative for DVT. continue glipizide. Sliding scale insulin. continue lisinopril 40 mg PO BID. Diuretics lasix 20 mg PO BID. Monitor electrolytes. Lipitor 20 mg daily. Cardiology consult Dr. Young requested. - Date & Time Date: 10/04/16 Time: 11:00
--- NOTE | 2016-10-05 22:33 | CP.PCM.PN ---
Subjective - Date & Time of Evaluation Date of Evaluation: 10/05/16 Time of Evaluation: 12:00 - Subjective Subjective: Comfortable in bed. B/L leg swelling improved slightly. Pain improved. On IV antibiotics. No fever. Objective - Vital Signs/Intake and Output Vital Signs (last 24 hours): Temp Pulse Resp BP Pulse Ox 98.7 F 78 20 152/60 H 98 10/05/16 17:02 10/05/16 17:02 10/05/16 17:02 10/05/16 18:01 10/05/16 17:02 Intake and Output: 10/05/16 10/06/16 18:59 06:59 Intake Total 600 660 Balance 600 660 - Medications Medications: Current Medications Acetaminophen (Tylenol 325mg Tab) 650 mg PO Q4H PRN PRN Reason: Pain, Mild (1-3) Arformoterol Tartrate (Brovana) 15 mcg IH [id number] [facility] Last Admin: 10/05/16 21:30 Dose: 15 mcg Atorvastatin Calcium (Lipitor) 40 mg PO DAILY [facility] Last Admin: 10/05/16 10:40 Dose: 40 mg Budesonide (Pulmicort Respules) 0.5 mg IH [id number] [facility] Last Admin: 10/05/16 21:30 Dose: 0.5 mg Furosemide (Lasix) 20 mg PO BID [facility] Last Admin: 10/05/16 18:01 Dose: 20 mg Glipizide (Glucotrol Xl) 5 mg PO BID [facility] Last Admin: 10/05/16 18:00 Dose: 5 mg Vancomycin HCl (Vancomycin 750 Mg In Ns) 750 mg in 250 mls @ 167 mls/hr IVPB Q12H [facility] PRN Reason: Protocol Last Admin: 10/05/16 18:01 Dose: 167 mls/hr Meropenem 1g/NS 100mL IVPB (Meropenem 1g/Ns 100ml Ivpb) 1 gm in 100 mls @ 100 mls/hr IVPB Q12 [facility] PRN Reason: Protocol Stop: 10/10/16 23:01 Last Admin: 10/05/16 10:41 Dose: 100 mls/hr Insulin Human Regular (Humulin R Low) 0 units SC ACHS [facility] PRN Reason: Protocol Last Admin: 10/05/16 22:08 Dose: Not Given Lisinopril (Zestril) 40 mg PO BID [facility] Last Admin: 10/05/16 18:00 Dose: 40 mg Nicotine (Nicoderm Cq) 1 patch TD DAILY [facility] Last Admin: 10/05/16 10:40 Dose: 1 patch Oxycodone/Acetaminophen (Percocet 5/325 Mg Tab) 1 tab PO Q4H PRN PRN Reason: Pain, moderate (4-7) Stop: 10/06/16 18:23 Last Admin: 10/05/16 18:07 Dose: 1 tab Tiotropium [place] (Spiriva) 18 mcg INH DAILY [facility] Last Admin: 10/05/16 10:42 Dose: 18 mcg - Constitutional Appears: Well, Non-toxic - Head Exam Head Exam: ATRAUMATIC, NORMAL INSPECTION, NORMOCEPHALIC - Eye Exam Eye Exam: Normal appearance Pupil Exam: NORMAL ACCOMODATION - ENT Exam ENT Exam: Mucous Membranes Moist, Normal Exam - Neck Exam Neck Exam: Normal Inspection - Respiratory Exam Respiratory Exam: Clear to Ausculation Bilateral, NORMAL BREATHING PATTERN - Cardiovascular Exam Cardiovascular Exam: REGULAR RHYTHM, +S1, +S2 - GI/Abdominal Exam GI & Abdominal Exam: Normal Bowel Sounds - Extremities Exam Extremities Exam: Pedal Edema - Back Exam Back Exam: NORMAL INSPECTION - Neurological Exam Neurological Exam: Alert, Awake, Oriented x3 - Psychiatric Exam Psychiatric exam: Normal Affect, Normal Mood - Skin Skin Exam: Intact, Warm Assessment and Plan - Assessment and Plan (Free Text) Assessment: 1. B/L Leg cellulitis. 2. Adrenal adenomas 3. Morbid obesity 4. PVD 5. DM II 6. HTN Plan : ID consult appreciated. IV antibiotics vanco and meropenem as per ID. Doppler lower ext negative for DVT. continue glipizide. Sliding scale insulin. continue lisinopril 40 mg PO BID. Diuretics lasix 20 mg PO BID. Monitor electrolytes. Lipitor 20 mg daily. Cardiology consult Dr. Young appreciated. Nicotine patch 14 mg daily ordered. Discharge planning : possible tomorrow on PO antibiotics.
[2016-10-06] MEDS: Vancomycin 750mg 750 MG/250 ML BAG IVPB SCH (05:29)
[2016-10-06] MEDS: Arformoterol 15 mcg/2 ml Inh Sol IH SCH (07:45)
[2016-10-06] MEDS: Budesonide 0.5 mg/2 ml Inhal Susp UD IH SCH (07:46)
[2016-10-06] MEDS: Insulin Reg-LOW-Coverage SC SCH (08:07)
[2016-10-06 08:12] LABS: BLOOD UREA NITROGEN 8 mg/dL (7-21); CALCIUM 8.8 mg/dL (8.4-10.5); GFR AFRICAN-AMERICAN > 60; GFR NON-AFRICAN AMERICAN > 60
[2016-10-06] MEDS: GlipiZIDE 5 mg SR Tab PO SCH (09:28)
[2016-10-06] MEDS: Tiotropium 18 mcg Cap For Inhalation INH SCH (09:28)
[2016-10-06] MEDS: Meropenem 1g/NS 100mL IVPB 1 GM/100 ML PIGGYBACK IVPB SCH (09:30)
[2016-10-06 09:37] VITALS: BP 158/65
--- NOTE | 2016-10-06 17:21 | CP.PCM.PN ---
Subjective - Date & Time of Evaluation Date of Evaluation: 10/06/16 Time of Evaluation: 09:40 - Subjective Subjective: Comfortable, not in distress, afebrile. Less pain and swelling of the right leg. Objective - Vital Signs/Intake and Output Vital Signs (last 24 hours): Temp Pulse Resp BP Pulse Ox 98.7 F 78 20 152/60 H 98 10/05/16 17:02 10/05/16 17:02 10/05/16 17:02 10/05/16 18:01 10/05/16 17:02 Intake and Output: 10/06/16 10/06/16 06:59 18:59 Intake Total 660 Balance 660 - Medications Medications: Current Medications Acetaminophen (Tylenol 325mg Tab) 650 mg PO Q4H PRN PRN Reason: Pain, Mild (1-3) Arformoterol Tartrate (Brovana) 15 mcg IH [id number] [facility] Last Admin: 10/06/16 07:45 Dose: 15 mcg Atorvastatin [place] (Lipitor) 40 mg PO DAILY [facility] Last Admin: 10/05/16 10:40 Dose: 40 mg Budesonide (Pulmicort Respules) 0.5 mg IH [id number] [facility] Last Admin: 10/06/16 07:46 Dose: 0.5 mg Furosemide (Lasix) 20 mg PO BID [facility] Last Admin: 10/05/16 18:01 Dose: 20 mg Glipizide (Glucotrol Xl) 5 mg PO BID [facility] Last Admin: 10/05/16 18:00 Dose: 5 mg Vancomycin HCl (Vancomycin 750 Mg In Ns) 750 mg in 250 mls @ 167 mls/hr IVPB Q12H [facility] PRN Reason: Protocol Last Admin: 10/06/16 05:29 Dose: 167 mls/hr Meropenem 1g/NS 100mL IVPB (Meropenem 1g/Ns 100ml Ivpb) 1 gm in 100 mls @ 100 mls/hr IVPB Q12 [facility] PRN Reason: Protocol Stop: 10/10/16 23:01 Last Admin: 10/05/16 22:49 Dose: 100 mls/hr Insulin Human Regular (Humulin R Low) 0 units SC ACHS [facility] PRN Reason: Protocol Last Admin: 10/06/16 08:07 Dose: Not Given Lisinopril (Zestril) 40 mg PO BID [facility] Last Admin: 10/05/16 18:00 Dose: 40 mg Nicotine (Nicoderm Cq) 1 patch TD DAILY [facility] Last Admin: 10/05/16 10:40 Dose: 1 patch Oxycodone/Acetaminophen (Percocet 5/325 Mg Tab) 1 tab PO Q4H PRN PRN Reason: Pain, moderate (4-7) Stop: 10/06/16 18:23 Last Admin: 10/05/16 18:07 Dose: 1 tab Tiotropium [place] (Spiriva) 18 mcg INH DAILY [facility] Last Admin: 10/05/16 10:42 Dose: 18 mcg - Labs Labs: 10/06/16 07:30 - Constitutional Appears: Non-toxic, No Acute Distress - Head Exam Head Exam: NORMAL INSPECTION - ENT Exam ENT Exam: Mucous Membranes Moist - Neck Exam Neck Exam: absent: Meningismus - Respiratory Exam Respiratory Exam: Decreased Breath Sounds - Cardiovascular Exam Cardiovascular Exam: +S1, +S2 - GI/Abdominal Exam GI & Abdominal Exam: Soft. absent: Tenderness Assessment and Plan - Assessment and Plan (Free Text) Plan: Assessment Right lower extremity skin and skin structure infection, with no evidence of DVT , in a patient with chronic venous stasis dermatitis, clinically improving history of right foot skin and skin structure infection with associated ankle ulcer with wound cx from 02/06/2016 growing MRSA and Pseudomonas hypertension bilateral lower extremity edema peripheral vascular disease diabetes hyperlipidemia varicose veins adrenal adenoma osteoarthritis history of right lower extremity cellulitis morbid obesity Plan on Vancomycin and Merrem day 3; cx are negative - can be switched to PO antibiotics when ready for discharge - discussed with Dr. Holman reviewed doppler ultrasound of the legs which did not show DVT
--- NOTE | 2016-10-07 04:20 | PN ---
DATE: 10/06/2016 SUBJECTIVE: The patient has no complaints of any chest pain. No shortness of breath. She states she feels well. Her lower extremity edema is better and her redness is better. I spoke with Dr. Orta. The patient does not have any signs of active cellulitis. The patient will be discharged home to continue thyroid therapy. PHYSICAL EXAMINATION: VITAL SIGNS: Temperature is 95.7, pulse of 104, blood pressure 110/69, and respirations 75. GENERAL: The patient is lying in bed, flat, comfortable. HEENT: No oral lesion. Anicteric sclerae. Moist mucosa. NECK: No JVD, adenopathy, or thyromegaly. CARDIOVASCULAR: S1 and S2, regular. No murmurs, rubs, or gallops. LUNGS: Clear to auscultation bilaterally. No wheeze, rales, or rhonchi. ABDOMEN: Bowel sounds are positive, soft, nontender and nondistended. EXTREMITIES: no cyanosis, clubbing or edema. SKIN: Lower extremity is with chronic skin changes. ASSESSMENT: 1. Lower extremity edema. 2. Adrenal adenoma. 3. Morbid obesity. 4. Peripheral arterial disease. 5. Diabetes type 2. 6. Hypertension. PLAN: The patient is currently comfortable. She is going to be discharged home. She is going to continue her Lasix 20 mg twice a day. She is going to follow with Dr. Phelps. CONDITION: Stable. ACTIVITIES: Increase as tolerated. Mele Cuellar MD
== END 2016-10-06 10:45 | disposition home or self-care (01) | DRG 603 ==
LOC: ED 14:31 → ERH 15:54 → 3RNO 18:12
PROVIDERS: ADMIT Internal Medicine Nephrology; ATTEND Internal Medicine Nephrology
DX: L03.115 Cellulitis of right lower limb (principal); E11.51 Type 2 diabetes mellitus with diabetic peripheral angiopathy without gangrene; J44.9 Chronic obstructive pulmonary disease, unspecified; Z68.42 Body mass index [BMI] 45.0-49.9, adult; I10 Essential (primary) hypertension; M19.90 Unspecified osteoarthritis, unspecified site; L03.116 Cellulitis of left lower limb; I83.90 Asymptomatic varicose veins of unspecified lower extremity; D35.00 Benign neoplasm of unspecified adrenal gland; E66.01 Morbid (severe) obesity due to excess calories; E78.5 Hyperlipidemia, unspecified; F17.210 Nicotine dependence, cigarettes, uncomplicated; I87.2 Venous insufficiency (chronic) (peripheral); Z79.899 Other long term (current) drug therapy; Z90.49 Acquired absence of other specified parts of digestive tract; Z90.710 Acquired absence of both cervix and uterus; H26.9 Unspecified cataract; M54.9 Dorsalgia, unspecified; R26.81 Unsteadiness on feet; N39.41 Urge incontinence; R40.2412 Glasgow coma scale score 13-15, at arrival to emergency department; I87.8 Other specified disorders of veins

== ENCOUNTER 2017-03-02 17:36 | Inpatient (IN) | payer MEDICARE, OTHER ==
--- NOTE | 2017-03-02 17:51 | ED PDOC ---
Arrival/HPI - General Time Seen by Provider: 03/02/17 17:49 Historian: Patient - History of Present Illness Narrative History of Present Illness (Text): 03/02/17 18:00 A 76 year old female, whose past including varicose vein, morbid obesity, copd, dm, hyperlipidemia, htn, adrenal adenoma, and nkda, presents to the emergency department for nausea and vomiting over the last 5 days and abdominal pain over the last 3 days. The patient states she is vomiting about 3 times a day and the vomit is black. The patient was seen in the emergency department 2 weeks ago for similar symptoms. Time/Duration: < week (x 5 days ) Symptom Onset: Gradual Symptom Course: Unchanged Quality: Other Severity Level: Mild Activities at Onset: Light Context: Home Past Medical History - Provider Review Nursing Documentation Reviewed: Yes - Infectious Disease Hx of Infectious Diseases: None - Cardiac Hx Hypertension: Yes Hx Peripheral Edema: Yes Hx Peripheral Vascular Disease: Yes - Pulmonary Hx Chronic Obstructive Pulmonary Disease (COPD): Yes - Neurological Hx Neurological Disorder: No - HEENT Hx Cataracts: Yes (RIGHT EYE) - Renal Hx Renal Disorder: No - Endocrine/Metabolic Hx Diabetes Mellitus Type 2: Yes - Hematological/Oncological Hx Blood Disorders: No - Integumentary Hx Dermatological Disorder: No - Musculoskeletal/Rheumatological Hx Arthritis: Yes Hx Back Pain: Yes Hx Unsteady Gait: Yes - Gastrointestinal Hx Gastrointestinal Disorders: Yes (HERNIA) - Genitourinary/Gynecological Hx Genitourinary Disorders: Yes Hx Incontinence: Yes (URGE) Hx Reproductive Disorders: No - Psychiatric Hx Psychophysiologic Disorder: No Hx Substance Use: No - Surgical History Hx Cholecystectomy: Yes Hx Hysterectomy: Yes - Anesthesia Hx Anesthesia: Yes Hx Anesthesia Reactions: No Hx Malignant Hyperthermia: No - Suicidal Assessment Feels Threatened In Home Enviroment: No Family/Social History - Physician Review Nursing Documentation Reviewed: Yes Family/Social History: No Known Family HX Smoking Status: Heavy Smoker > 10 Cigarettes Daily Hx Alcohol Use: No Hx Substance Use: No Allergies/Home Meds Allergies/Adverse Reactions: Allergies No Known Allergies Allergy (Verified 03/02/17 17:46) Home Medications: Home Meds Medication Instructions Recorded Confirmed Metformin HCl 1,000 mg PO BID 07/15/11 03/02/17 Rosuvastatin Calcium [Crestor] 10 mg PO HS 07/15/11 03/02/17 Lisinopril [Zestril] 40 mg PO BID 02/18/16 03/02/17 Review of Systems - Physician Review All systems were reviewed & negative as marked: Yes - Review of Systems Constitutional: absent: Fevers Gastrointestinal: Abdominal Pain, Vomiting Physical Exam Vital Signs Reviewed: Yes Vital Signs Temp Pulse Resp BP Pulse Ox 03/02/17 23:49 73 18 119/80 98 03/02/17 20:23 72 18 110/60 99 03/02/17 17:51 97.8 F 74 20 94/51 L 100 Temperature: Afebrile Blood Pressure: Hypotensive Pulse: Regular Respiratory Rate: Normal Appearance: Positive for: Well-Appearing, Non-Toxic, Comfortable, Other ( morbidly obese ) Pain Distress: None Mental Status: Positive for: Alert and Oriented X 3 - Systems Exam Head: Present: Atraumatic, Normocephalic Pupils: Present: PERRL Extroacular Muscles: Present: EOMI Conjunctiva: Present: Normal Mouth: Present: Moist Mucous Membranes Neck: Present: Normal Range of Motion Respiratory/Chest: Present: Clear to Auscultation, Good Air Exchange. No: Respiratory Distress, Accessory Muscle Use Cardiovascular: Present: Regular Rate and Rhythm, Normal S1, S2. No: Murmurs Abdomen: Present: Tenderness (diffuse abdominal tenderness ), Normal Bowel Sounds, Hernias (ventral hernia ). No: Distention, Peritoneal Signs Back: Present: Normal Inspection Upper Extremity: Present: Normal Inspection. No: Cyanosis, Edema Lower Extremity: Present: Edema (bilateral ) Neurological: Present: GCS=15, CN II-XII Intact, Speech Normal Skin: Present: Warm, Dry, Normal Color. No: Rashes Psychiatric: Present: Alert, Oriented x 3, Normal Insight, Normal Concentration Medical Decision Making ED Course and Treatment: zeinab Muse who will admit zeinab goldsmith surgical attendant who came and eval the pt in the ED 03/02/17 22:09 cxr- NGT in proper position 03/02/17 22:[address] Cool who will consult - Lab Interpretations Lab Results: 03/02/17 18:18 03/02/17 20:40 Lab Results 03/02/17 20:40: Sodium 140, Chloride 122 H, Potassium 1.5 L* D, Carbon Dioxide 13 L, Anion Gap 7 L, BUN 26 H, Creatinine 0.9, Est GFR ( Amer) > 60, Est GFR (Non-Af Amer) > 60, Random Glucose 55 L, Calcium 2.9 L*, Total Bilirubin 0.4 , AST 5 L, ALT 26, Alkaline Phosphatase 20 L, Total Protein 2.2 L, Albumin 1.0 L , Globulin 1.4, Albumin/Globulin Ratio 0.7 L 03/02/17 19:00: Blood Type AB POSITIVE, Antibody Screen Negative, BBK History Checked Patient has bt 03/02/17 18:18: PT 13.6 H, INR 1.24 H, APTT 27.3 03/02/17 18:18: WBC 19.4 H D, RBC 5.11, Hgb 15.0, Hct 44.4, MCV 86.9, MCH 29.4, MCHC 33.8, RDW 14.5, Plt Count 290, MPV 9.9, Gran % 83.0 H, Lymph % (Auto) 7.7 L , [place] % (Auto) 9.1 H, Eos % (Auto) 0.1 L, Baso % (Auto) 0.1, Gran # 16.13 H, Lymph # 1.5, [place] # 1.8 H, Eos # 0.0, Baso # 0.02 03/02/17 18:18: pO2 50, VBG pH 7.39, VBG pCO2 44.0, VBG HCO3 26.6, VBG Total CO2 28.0, VBG O2 Sat (Calc) 89.3 H, VBG Base Excess 1.2, VBG Potassium 4.7, Sodium 127.0 L, Chloride 88.0 L, Glucose 166 H, Lactate 3.2 H, FiO2 21.0, Venous Blood Potassium 4.7 - RAD Interpretation Radiology Orders: 03/02/17 17:52 ABD & PELVIS W/O PO OR IV CONT [CT] Stat - Medication Orders Current Medication Orders: Discontinued Medications Docusate Sodium (Colace Liquid) 100 mg PO TID [facility] Last Admin: 03/06/17 14:43 Dose: Not Given Non-Admin Reason: NPO Famotidine (Pepcid) 20 mg IVP BID [facility] Last Admin: 03/06/17 09:25 Dose: 20 mg IVP Administration Document 03/06/17 09:25 MCV (Rec: 03/06/17 09:25 MCV [id number]) Charges for Administration # of IVP Administrations 1 Hydrocortisone Sodium Succinate (Solu-Cortef) 100 mg IVP ONCE ONE Stop: 03/07/17 08:00 Sodium Chloride (Sodium Chloride 0.9%) 1,000 mls @ 999 mls/hr IV .Q1H1M STA Stop: 03/02/17 18:53 Last Admin: 03/02/17 18:28 Dose: 999 mls/hr eMAR Start Stop Document 03/02/17 18:28 AB (Rec: 03/02/17 18:28 AB [id number]) Intravenous Solution Start Date 03/02/17 Start Time 18:28 End Date 03/02/17 End time 19:28 Total Infusion Time 60 Sodium Chloride (Sodium Chloride 0.9%) 1,000 mls @ 999 mls/hr IV .Q1H1M STA Stop: 03/02/17 20:04 Last Admin: 03/02/17 19:11 Dose: 999 mls/hr eMAR Start Stop Document 03/02/17 19:11 AB (Rec: 03/02/17 19:11 AB [id number]) Intravenous Solution Start Date 03/02/17 Start Time 19:11 End Date 03/02/17 Piperacillin Sod/Tazobactam Sod (Zosyn 3.375 In Ns 100ml) 100 mls @ 200 mls/hr IVPB STAT STA PRN Reason: Protocol Stop: 03/02/17 21:26 Last Admin: 03/02/17 22:39 Dose: 200 mls/hr eMAR Start Stop Document 03/02/17 22:39 SS (Rec: 03/02/17 22:39 SS [id number]) Intravenous Solution Start Date 03/02/17 Start Time 22:29 End Date 03/02/17 End time 23:00 Total Infusion Time 31 Ciprofloxacin (Cipro 400mg/200ml Dsw) 400 mg in 200 mls @ 133.3 mls/hr IVPB Q12 ALEXANDRE PRN Reason: Protocol Stop: 03/03/17 07:31 Last Admin: 03/03/17 05:02 Dose: 133.3 mls/hr eMAR Start Stop Document 03/03/17 05:02 GC (Rec: 03/03/17 05:02 GC [id number]) Intravenous Solution Start Date 03/03/17 Start Time 05:02 End Date 03/03/17 End time 06:32 Total Infusion Time 90 Metronidazole (Flagyl) 500 mg in 100 mls @ 100 mls/hr IVPB Q8 ALEXANDRE PRN Reason: Protocol Last Admin: 03/04/17 06:32 Dose: 100 mls/hr eMAR Start Stop Document 03/04/17 06:32 HR ADVISOR (Rec: 03/04/17 06:32 [id number]) Intravenous Solution Start Date 03/04/17 Start Time 06:32 End Date 03/04/17 End time 07:32 Total Infusion Time 60 Lactated Ringer's (Lactated Ringer's) 1,000 mls @ 150 mls/hr IV .Q6H40M [facility] Last Admin: 03/03/17 20:58 Dose: 150 mls/hr eMAR Start Stop Document 03/03/17 20:58 HR ADVISOR (Rec: 03/03/17 20:58 [id number]) Intravenous Solution Start Date 03/03/17 Start Time 20:58 End Date 03/04/17 Piperacillin Sod/Tazobactam Sod (Zosyn 2.25 Gm In 0.9% 100 Ml) 2.25 gm in 100 mls @ 100 mls/hr IV Q8 ALEXANDRE PRN Reason: Protocol Stop: 03/12/17 14:01 Last Admin: 03/06/17 05:56 Dose: 100 mls/hr eMAR Start Stop Document 03/06/17 05:56 BR (Rec: 03/06/17 05:56 BR [id number]) Intravenous Solution Start Date 03/06/17 Start Time 05:56 End Date 03/06/17 End time 06:56 Total Infusion Time 60 Sodium Chloride (Sodium Chloride 0.9%) 1,000 mls @ 80 mls/hr IV .Q19E03M [facility] Last Admin: 03/05/17 22:20 Dose: 80 mls/hr eMAR Start Stop Document 03/05/17 22:20 BR (Rec: 03/05/17 22:20 BR [id number]) Intravenous Solution Start Date 03/05/17 Start Time 22:20 NOREPINEPHRINE BIT/0.9 % NACL (Levophed 4 Mg/ 250 Ml Ns Premixed) 4 mg in 250 mls @ 15 mls/hr IV .Q45Y97P PRN; Protocol; 4 MCG/MIN PRN Reason: TITRATE PER MD ORDER Last Titration: 03/06/17 23:26 Dose: 12 mcg/min, 45 mls/hr Titration Intervention Document 03/06/17 23:26 PM (Rec: 03/06/17 23:[address] [facility] Titration Intake Titration Intake 25 Cumulative Intake 25 Cumulative Intake (Rx) 25 Waste Amount 0 Container Volume 225 Titration Dosing Titration Dose 12 IV Rate 45 Intake/Decrease Increased Cumulative Dose 0.4 Meropenem (Merrem Iv 1 Gm Premix) 50 mls @ 100 mls/hr IVPB Q8 ALEXANDRE PRN Reason: Protocol Last Admin: 03/07/17 06:54 Dose: 100 mls/hr eMAR Start Stop Document 03/07/17 06:54 PM (Rec: 03/07/17 06:[address]) Intravenous Solution Start Date 03/06/17 Start Time 22:00 Vancomycin HCl (Vancomycin 1gm) 1 gm in 250 mls @ 167 mls/hr IVPB Q12H ALEXANDRE PRN Reason: Protocol Sodium Bicarbonate 150 meq/ (Dextrose) 1,150 mls @ 200 mls/hr IV .Q5H45M ALEXANDRE Last Admin: 03/06/17 22:31 Dose: 200 mls/hr eMAR Start Stop Document 03/06/17 22:31 PM (Rec: 03/06/17 22:[address] [facility] Intravenous Solution Start Date 03/06/17 Start Time 22:31 Lactated Ringer's (Lactated Ringer's) 1,000 mls @ 1,000 mls/hr IV .Q1H ALEXANDRE Stop: 03/06/17 21:44 Last Admin: 03/06/17 22:33 Dose: 1,000 mls/hr eMAR Start Stop Document 03/06/17 22:33 PM (Rec: 03/06/17 22:[address] [facility] Intravenous Solution Start Date 03/06/17 Start Time 22:33 Propofol (Diprivan) 1,000 mg in 100 mls @ 3.497 mls/hr IV .Q24H PRN; Protocol; 5 MCG/KG/MIN PRN Reason: TITRATE PER MD ORDER Lactated Ringer's (Lactated Ringer's) 1,000 mls @ 9,999 mls/hr IV .Q6M ALEXANDRE Stop: 03/07/17 00:26 Sodium Chloride (Sodium Chloride 0.9%) 1,000 mls @ 999 mls/hr IV .Q1H1M ALEXANDRE Stop: 03/07/17 03:00 Amiodarone HCl/Dextrose (Nexterone 360 Mg In D5w 200 Ml (Premix)) 360 mg in 200 mls @ 33.333 mls/hr IV .Q6H ALEXANDRE; 1 MG/MIN PRN Reason: Protocol Last Admin: 03/07/17 03:43 Dose: 33.333 mls/hr eMAR Start Stop Document 03/07/17 03:43 PM (Rec: 03/07/17 03:44 PM [id number]) Intravenous Solution Start Date 03/07/17 Start Time 03:44 Vasopressin 20 units/ Dextrose 101 mls @ 9.09 mls/hr IV .Q11H7M ALEXANDRE; 0.03 U/MIN PRN Reason: Protocol Last Admin: 03/07/17 03:57 Dose: 9.09 mls/hr eMAR Start Stop Document 03/07/17 03:57 PM (Rec: 03/07/17 04:01 PM [id number]) Intravenous Solution Start Date 03/07/17 Start Time 04:00 MAR Blood Pressure Document 03/07/17 03:57 PM (Rec: 03/07/17 04:01 PM [id number]) Blood Pressure Blood Pressure (100/60-150/90) 0/0 Lactated Ringer's (Lactated Ringer's) 1,000 mls @ 999 mls/hr IV .Q1H1M ALEXANDRE Stop: 03/07/17 07:30 Amiodarone HCl/Dextrose (Nexterone 360 Mg In D5w 200 Ml (Premix)) 360 mg in 200 mls @ 33.333 mls/hr IV .Q6H ONE; 1 MG/MIN PRN Reason: Protocol Stop: 03/07/17 09:14 Amiodarone HCl/Dextrose (Nexterone 360 Mg In D5w 200 Ml (Premix)) 360 mg in 200 mls @ 16.667 mls/hr IV .Q12H ALEXANDRE; 0.5 MG/MIN PRN Reason: Protocol Epinephrine HCl 1 mg/ Sodium (Chloride) 51 mls @ 3.06 mls/hr IV .[id number] PRN; Protocol; 1 MCG/MIN PRN Reason: TITRATE PER MD ORDER Dopamine HCl/Dextrose (Dopamine 400mg/250ml D5w) 400 mg in 250 mls @ 21.857 mls /hr IV .[id number] PRN; Protocol; 5 MCG/KG/MIN PRN Reason: TITRATE PER MD ORDER Morphine Sulfate (Morphine) 4 mg IVP STAT STA Stop: 03/02/17 21:00 Last Admin: 03/02/17 21:08 Dose: Not Given Non-Admin Reason: Patient Refused MAR Pain Assessment Document 03/02/17 21:08 SS (Rec: 03/02/17 21:08 SS [id number]) Pain Reassessment Is this a pain reassessment? No Sleep Is patient sleeping during reassessment? No Presence of Pain Presence of Pain No Ondansetron HCl (Zofran Inj) 4 mg IVP ONCE ONE Stop: 03/02/17 19:05 Last Admin: 03/02/17 19:27 Dose: 4 mg IVP Administration Document 03/02/17 19:27 AB (Rec: 03/02/17 19:28 AB [id number]) Charges for Administration # of IVP Administrations 1 Ondansetron HCl (Zofran Inj) 4 mg IVP ONCE ONE Stop: 03/02/17 21:00 Last Admin: 03/02/17 22:01 Dose: Not Given Non-Admin Reason: Patient Refused Ondansetron HCl (Zofran Inj) 4 mg IVP Q6H PRN PRN Reason: Nausea/Vomiting Oxycodone/Acetaminophen (Percocet 5/325 Mg Tab) 1 tab PO Q4H PRN PRN Reason: Pain, moderate (4-7) Stop: 03/09/17 10:09 Pantoprazole Sodium (Protonix Inj) 80 mg IVP STAT STA Stop: 03/02/17 17:53 Last Admin: 03/02/17 18:27 Dose: 80 mg IVP Administration Document 03/02/17 18:27 AB (Rec: 03/02/17 18:28 AB [id number]) Charges for Administration # of IVP Administrations 1 Pantoprazole Sodium (Protonix Inj) 40 mg IVP DAILY ALEXANDRE Sodium Bicarbonate (Sodium Bicarbonate 8.4% (50 Meq) Syringe) 50 meq IVP ONCE ONE Stop: 03/07/17 01:25 Last Admin: 03/07/17 02:39 Dose: 50 meq IVP Administration Document 03/07/17 02:39 PM (Rec: 03/07/17 02:41 PM [facility] Charges for Administration # of IVP Administrations 1 Sodium Bicarbonate (Sodium Bicarbonate 8.4% (50 Meq) Syringe) 50 meq IVP ONCE ONE Stop: 03/07/17 01:25 Last Admin: 03/07/17 02:41 Dose: 50 meq IVP Administration Document 03/07/17 02:41 PM (Rec: 03/07/17 02:42 PM [facility] Charges for Administration # of IVP Administrations 1 Sodium Bicarbonate (Sodium Bicarbonate 8.4% (50 Meq) Syringe) 50 meq IVP ONCE ONE Stop: 03/07/17 01:26 Sodium Bicarbonate (Sodium Bicarbonate 8.4% (50 Meq) Syringe) 50 meq IVP ONCE ONE Stop: 03/07/17 06:18 Last Admin: 03/07/17 07:00 Dose: 50 meq IVP Administration Document 03/07/17 07:00 PM (Rec: 03/07/17 07:01 PM [facility] Charges for Administration # of IVP Administrations 1 Sodium Bicarbonate (Sodium Bicarbonate 8.4% (50 Meq) Syringe) 50 meq IVP ONCE ONE Stop: 03/07/17 06:18 Last Admin: 03/07/17 07:17 Dose: 50 meq IVP Administration Document 03/07/17 07:17 PM (Rec: 03/07/17 07:17 PM [facility] Charges for Administration # of IVP Administrations 1 Sodium Bicarbonate (Sodium Bicarbonate 8.4% (50 Meq) Syringe) 50 meq IVP ONCE ONE Stop: 03/07/17 06:19 - Scribe Statement The provider has reviewed the documentation as recorded by the Ajith Whitmore Provider Scribe Attestation: All medical record entries made by the Scribe were at my direction and personally dictated by me. I have reviewed the chart and agree that the record accurately reflects my personal performance of the history, physical exam, medical decision making, and the department course for this patient. I have also personally directed, reviewed, and agree with the discharge instructions and disposition. Disposition/Present on Arrival - Present on Arrival Any Indicators Present on Arrival: No History of DVT/PE: No History of Uncontrolled Diabetes: No Urinary Catheter: No History Surgical Site Infection Following: None - Disposition Have Diagnosis and Disposition been Completed?: Yes Diagnosis: Small bowel obstruction Disposition: HOSPITALIZED Disposition Time: 21:26 Condition: SERIOUS
[2017-03-02] MEDS ORDERED: Sodium Chloride 0.9% 1,000 ML IV STA ×2 (17:53→19:04)
[2017-03-02 18:33] LABS: BASO # 0.02 K/mm3 (0.0-2.0); BASO % 0.1 % (0.0-3.0); EOS % 0.1 % (1.5-5.0); GRAN # 16.13 (1.4-6.5); LYMPH # 1.5 (1.2-3.4); LYMPH % 7.7 % (22.0-35.0); MEAN CELL VOLUME 86.9 fl (80.0-105.0); MEAN CORPUSCULAR HEMOGLOBIN 29.4 pg (25.0-35.0); MEAN CORPUSCULAR HGB CONC 33.8 g/dl (31.0-37.0); MEAN PLATELET VOLUME 9.9 fl (7.0-11.0); MONO # 1.8 (0.1-0.6); MONO % 9.1 % (1.0-6.0); RBC 5.11 10^6/uL (3.5-6.1); RED CELL DISTRIBUTION WIDTH 14.5 % (11.5-14.5); WHITE BLOOD COUNT 19.4 10^3/ul (4.5-11.0)
[2017-03-02 18:46] LABS: INR 1.24 (0.93-1.08); PARTIAL THROMBOPLASTIN TIME 27.3 Seconds (25.1-36.5); PROTHROMBIN TIME 13.6 SECONDS (9.4-12.5)
[2017-03-02 18:50] LABS: VENOUS BLOOD GAS BASE EXCESS 1.2 mmol/L (0.0-2.0); VENOUS BLOOD GAS PO2 50 mm/Hg (30-55); VENOUS BLOOD PH 7.39 (7.32-7.43)
--- NOTE | 2017-03-02 20:46 | CT ---
EXAM: CT Abdomen and Pelvis Without Intravenous Contrast EXAM DATE/TIME: 03/02/2017 5:52 PM CLINICAL HISTORY: 76 years old, female; Pain; Abdominal pain; Generalized TECHNIQUE: Axial computed tomography images of the abdomen and pelvis without intravenous contrast. All CT scans at this facility use one or more dose reduction techniques, viz.: automated exposure control; ma/kV adjustment per patient size (including targeted exams where dose is matched to indication; i.e. head); or iterative reconstruction technique. Coronal and sagittal reformatted images were created and reviewed. COMPARISON: CT - ABD PELVIS W/O PO OR IV CONT 2015-10-24 22:03 FINDINGS: Lower thorax: Heart size is normal. There are coronary artery calcifications. There is a hiatal hernia. There is minimal scarring at the lung bases. ABDOMEN: Liver: unremarkable Gallbladder and bile ducts: Gallbladder is absent.There is prominence of the common duct. Pancreas: Pancreas is atrophic. Spleen: unremarkable Adrenals: There are bilateral adrenal nodules. Kidneys and ureters: There is a right renal cyst. Kidneys and ureters are otherwise unremarkable. Stomach and bowel: Stomach is dilated with an air-fluid level. Rotation is normal. Majority of the small bowel is dilated with air-fluid levels. Dilated small bowel and decompressed transverse colon projecting into a superior nonobstructing ventral hernia. There is dilated small bowel in the inferior ventral hernia. There is transition at the level of the lower complex ventral hernia. There are surgical clips associated with the inferior/multi-compartmental ventral hernia. Distal/terminal ileum is decompressed. Terminal ileum is unremarkable. Appendix is not visualized.Colon is incompletely distended which limits evaluation. There is scattered diverticulosis. Appendix: See stomach and bowel PELVIS: Bladder: Bladder is almost empty. Reproductive: Uterus is absent. There are no adnexal masses. ABDOMEN and PELVIS: Intraperitoneal space: There is no free air. Small amount of fluid in the abdomen. Bones/joints: There are degenerative changes in the osseus structures. Soft tissues: There are 2 ventral hernias. Superior hernia contains small bowel and transverse colon and is nonobstructing. Lower hernia contains multiple small bowel loops and causes small bowel obstruction. Vasculature: There are multiple phleboliths.There are vascular calcifications. Lymph nodes: There is shotty adenopathy. IMPRESSION: Small bowel obstruction at the level of the inferior ventral hernia, similar finding seen on the prior study 10/24/15 Additional nonemergent findings as described above
[2017-03-02] MEDS ORDERED: Piperacillin/Tazobact 3.375 gm 100 ML IVPB STA (20:57)
[2017-03-02] MEDS ORDERED: Morphine 4 mg/ml ISec IVP STA (20:59)
[2017-03-02 21:16] LABS: BLOOD UREA NITROGEN 26 mg/dL (7-21)
[2017-03-02 21:17] LABS: GFR AFRICAN-AMERICAN > 60; GFR NON-AFRICAN AMERICAN > 60
[2017-03-02 21:18] LABS: ALT/SGPT 26 U/L (7-56); AST/SGOT 5 U/L (14-36)
[2017-03-02 21:23] LABS: ALB/GLOB RATIO 0.7 (1.1-1.8)
[2017-03-02] MEDS ORDERED: Magnesium Sulfate 2 GM in Sodium Chloride 0.9% 100 ML IVPB ONE (21:25)
[2017-03-02 21:27] LABS: CALCIUM 2.9 mg/dL (8.4-10.5)
[2017-03-02 22:03] LABS: CALCIUM 9.4 mg/dL (8.4-10.5)
--- NOTE | 2017-03-02 22:26 | CP.PCM.CON ---
History of Present Illness - History of Present Illness History of Present Illness: General Surgery - Dr. Cool 75F pmhx COPD, HTN, DM, Hysterectomy and Cholecystectomy, presenting w/ abdominal pain and constipation x5 days. Patient has had similar symptoms like this in the past that resolved w/ conservative management. +nausea and multiple episodes of dark green bilious emesis over the last 3 days. Pt states her last BM was 3 days ago, and last flatus was 5 days. she has since had worsening abdominal pain, located in the periumbilical region near her hernia. Ventral hernia x2 has been present for over 10 years. Denies recent fevers, chills, chest pain, shortness of breath, diarrhea, changes in urinary habits, blood in stool, or blood in emesis. of note: NGT was placed in the ED and 1700cc of dark bilious fluid PMH: HTN, DM, COPD, chronic constipation PSH: Hysterectomy, Cholecystectomy (15yrs ago) ALL: NKDA SocialHx: Denies ETOH or recreational drug use Review of Systems - Review of Systems All systems: reviewed and no additional remarkable complaints except - Constitutional Constitutional: As Per HPI Past Patient History - Infectious Disease Hx of Infectious Diseases: None - Past Social History Smoking Status: Heavy Smoker > 10 Cigarettes Daily - CARDIAC Hx Hypertension: Yes Hx Peripheral Edema: Yes Hx Peripheral Vascular Disease: Yes - PULMONARY Hx Chronic Obstructive Pulmonary Disease (COPD): Yes - NEUROLOGICAL Hx Neurological Disorder: No - HEENT Hx Cataracts: Yes (RIGHT EYE) - RENAL Hx Chronic Kidney Disease: No - ENDOCRINE/METABOLIC Hx Diabetes Mellitus Type 2: Yes - HEMATOLOGICAL/ONCOLOGICAL Hx Blood Disorders: No - INTEGUMENTARY Hx Dermatological Problems: No - MUSCULOSKELETAL/RHEUMATOLOGICAL Hx Arthritis: Yes Hx Back Pain: Yes Hx Unsteady Gait: Yes - GASTROINTESTINAL Hx Gastrointestinal Disorders: Yes (HERNIA) - GENITOURINARY/GYNECOLOGICAL Hx Genitourinary Disorders: Yes Hx Incontinence: Yes (URGE) Hx Reproductive Disorders: No - PSYCHIATRIC Hx Psychophysiologic Disorder: No Hx Substance Use: No - SURGICAL HISTORY Hx Cholecystectomy: Yes Hx Hysterectomy: Yes - ANESTHESIA Hx Anesthesia: Yes Hx Anesthesia Reactions: No Hx Malignant Hyperthermia: No Meds Allergies/Adverse Reactions: Allergies Allergy/AdvReac Type Severity Reaction Status Date / Time No Known Allergies Allergy Verified 03/02/17 17:46 Physical Exam - Constitutional Appears: Non-toxic, No Acute Distress Additional comments: morbidly obese - Head Exam Head Exam: ATRAUMATIC - Eye Exam Eye Exam: EOMI. absent: Scleral icterus - ENT Exam ENT Exam: Mucous Membranes Moist - Respiratory Exam Respiratory Exam: absent: Accessory Muscle Use, Respiratory Distress - Cardiovascular Exam Cardiovascular Exam: +S1, +S2. absent: Bradycardia, Tachycardia - GI/Abdominal Exam GI & Abdominal Exam: Distended, Guarding, Hernia, Soft, Tenderness. absent: Firm, Rigid Additional comments: tender to palpation around hernia site hard stool palpated in hernia sac attempted to reduce at bedside in T-blankenship and w/ ice pack - Extremities Exam Extremities exam: Positive for: normal inspection. Negative for: calf tenderness - Neurological Exam Neurological exam: Alert, Oriented x3 - Psychiatric Exam Psychiatric exam: Normal Affect - Skin Skin Exam: Intact, Warm Results - Vital Signs Recent Vital Signs: Last Vital Signs Temp 97.8 F 03/02/17 17:51 Pulse 72 03/02/17 20:23 Resp 18 03/02/17 20:23 BP 110/60 03/02/17 20:23 Pulse Ox 99 03/02/17 20:23 - Labs Result Diagrams: 03/02/17 18:18 03/02/17 21:50 Labs: Laboratory Results - last 24 hr 03/02/17 21:50 Sodium 130 L Potassium 4.1 Chloride 90 L D Carbon Dioxide 25 Anion Gap 19 BUN 64 H Creatinine 2.5 H Est GFR ( Amer) 23 Est GFR (Non-Af Amer) 19 Random Glucose 124 H Calcium 9.4 Assessment & Plan - Assessment and Plan (Free Text) Assessment: 76F w/ recurrent small bowel obstruction CT scan shows ventral hernia x2 w/ inferior hernia most likely being the source of the obstruction Plan: - NPO - IVF/ABx - GI/DVT ppx - pain control and anti-emetic PRN - NGT to low cont suction - serial abd exams - strict I/O - further recs per Dr. Travon Etienne PGY1
[2017-03-02] MEDS ORDERED: HYDROmorphone 0.5 mg/0.5 ml ISec IVP PRN (22:31)
[2017-03-02] MEDS ORDERED: Morphine 4 mg/ml ISec IVP PRN (22:31)
[2017-03-02 23:19] LABS: VENOUS BLOOD GAS PO2 27 mm/Hg (30-55); VENOUS BLOOD PH 7.25 (7.32-7.43)
[2017-03-03] MEDS: Lactated Ringer's 1,000 ML IV SCH ×5 (01:48→20:58)
[2017-03-03 02:22] VITALS: BMI 44.9
[2017-03-03] MEDS ORDERED: Ciprofloxacin 400mg/200ml D5W 400 MG/200 ML BAG IVPB SCH (06:00)
[2017-03-03] MEDS: metroNIDAZOLE IV 500 mg/100 ml 500 MG/100 ML BAG IVPB SCH ×3 (06:49→21:06)
[2017-03-03 07:24] LABS: VENOUS BLOOD GAS BASE EXCESS -1.9 mmol/L (0.0-2.0); VENOUS BLOOD GAS PO2 87 mm/Hg (30-55); VENOUS BLOOD PH 7.33 (7.32-7.43)
[2017-03-03 07:24] LABS: BASO # 0.01 K/mm3 (0.0-2.0); BASO % 0.1 % (0.0-3.0); EOS % 0.1 % (1.5-5.0); GRAN # 10.02 (1.4-6.5); GRAN % 77.5 % (50.0-68.0); HEMOGLOBIN 12.8 g/dL (12.0-16.0); LYMPH # 1.3 (1.2-3.4); LYMPH % 10.4 % (22.0-35.0); MEAN CELL VOLUME 87.5 fl (80.0-105.0); MEAN CORPUSCULAR HEMOGLOBIN 29.2 pg (25.0-35.0); MEAN CORPUSCULAR HGB CONC 33.3 g/dl (31.0-37.0); MONO # 1.5 (0.1-0.6); MONO % 11.9 % (1.0-6.0); RBC 4.39 10^6/uL (3.5-6.1); RED CELL DISTRIBUTION WIDTH 14.4 % (11.5-14.5); WHITE BLOOD COUNT 12.9 10^3/ul (4.5-11.0)
[2017-03-03 07:40] LABS: ALB/GLOB RATIO 0.9 (1.1-1.8); ALBUMIN 2.9 g/dL (3.0-4.8); CALCIUM 8.5 mg/dL (8.4-10.5)
--- NOTE | 2017-03-03 08:02 | RAD ---
HISTORY: ng tube COMPARISON: No prior. FINDINGS: LUNGS: No active pulmonary disease. PLEURA: No significant pleural effusion identified, no pneumothorax apparent. CARDIOVASCULAR: Normal. OSSEOUS STRUCTURES: No significant abnormalities. VISUALIZED UPPER ABDOMEN: Normal. OTHER FINDINGS: None. IMPRESSION: The nasogastric tube is in satisfactory position
--- NOTE | 2017-03-03 09:52 | CARD ---
APPROVED REPORT EKG Measurement Heart [id number] <Conclusion> Unusual P axis and short WA, probable junctional tachycardia with undetermined rhythm irregularity ST & T wave abnormality, consider inferolateral ischemia Abnormal ECG
--- NOTE | 2017-03-03 13:00 | CP.PCM.CON ---
<Matt Lynn - Last Filed: 03/03/17 13:06> History of Present Illness - History of Present Illness History of Present Illness: Infectious disease consultation Attending: Dr. Orta This is a 76 yo female with past medical hx of HTN, DM, COPD presenting with chief complaint of abdominal pain and constipation x 5 days. Pt also reports nausea and episodes of dark green, bilious emesis. Pt has ventral hernia x 2 for 25 years. Denies any previous hernia surgery. Denies fevers and chills. ID consulted for elevated WBC count. Pt seen and examined at bedside today. No acute distress. Feels better, with NG tube in place. PMH: HTN, DM, COPD PSH: hysterectomy, cholecystectomy Allergies: NKDA FH: Denies Social hx: current smoker, 1 ppd, denies drinking and drug use. born in . Review of Systems - Review of Systems All systems: reviewed and no additional remarkable complaints except Review of Systems: negative except as stated in HPI. Past Patient History - Infectious Disease Hx of Infectious Diseases: None - Tetanus Immunizations Tetanus Immunization: Unknown - Past Social History Smoking Status: Current Some Days Smoker Chewing Tobacco Use: No Cigar Use: No Alcohol: None Drugs: Denies Home Situation {Lives}: Alone Domestic Violence: Negative - CARDIAC Hx Cardiac Disorders: Yes Hx Hypertension: Yes Hx Peripheral Edema: Yes Hx Peripheral Vascular Disease: Yes - PULMONARY Hx Respiratory Disorders: Yes Hx Chronic Obstructive Pulmonary Disease (COPD): Yes - NEUROLOGICAL Hx Neurological Disorder: No - HEENT Hx HEENT Problems: Yes Hx Cataracts: Yes (R. eye) - RENAL Hx Chronic Kidney Disease: No - ENDOCRINE/METABOLIC Hx Endocrine Disorders: Yes Hx Diabetes Mellitus Type 2: Yes - HEMATOLOGICAL/ONCOLOGICAL Hx Blood Disorders: No - INTEGUMENTARY Hx Dermatological Problems: No - MUSCULOSKELETAL/RHEUMATOLOGICAL Hx Musculoskeletal Disorders: Yes Hx Arthritis: Yes Hx Back Pain: Yes Hx Falls: No Hx Unsteady Gait: Yes - GASTROINTESTINAL Hx Gastrointestinal Disorders: Yes (HERNIA) - GENITOURINARY/GYNECOLOGICAL Hx Genitourinary Disorders: Yes Hx Incontinence: Yes (URGE) Hx Reproductive Disorders: No - PSYCHIATRIC Hx Substance Use: No - SURGICAL HISTORY Hx Surgeries: Yes Hx Cholecystectomy: Yes Hx Hysterectomy: Yes - ANESTHESIA Hx Anesthesia: Yes Hx Anesthesia Reactions: No Hx Malignant Hyperthermia: No Meds Allergies/Adverse Reactions: Allergies Allergy/AdvReac Type Severity Reaction Status Date / Time No Known Allergies Allergy Verified 03/02/17 17:46 - Medications Medications: Current Medications Famotidine (Pepcid) 20 mg IVP BID [facility] Last Admin: 03/03/17 09:37 Dose: 20 mg Hydromorphone HCl (Dilaudid) 0.5 mg IVP Q4H PRN PRN Reason: Pain, severe (8-10) Metronidazole (Flagyl) 500 mg in 100 mls @ 100 mls/hr IVPB Q8 [facility] PRN Reason: Protocol Last Admin: 03/03/17 06:49 Dose: 100 mls/hr Lactated Ringer's (Lactated Ringer's) 1,000 mls @ 150 mls/hr IV .[id number] [facility] Last Admin: 03/03/17 12:13 Dose: Not Given Piperacillin Sod/Tazobactam Sod (Zosyn 2.25 Gm In 0.9% 100 Ml) 2.25 gm in 100 mls @ 100 mls/hr IV Q8 [facility] PRN Reason: Protocol Stop: 03/12/17 14:01 Morphine Sulfate (Morphine) 4 mg IVP Q6H PRN PRN Reason: Pain, moderate (4-7) Physical Exam - Constitutional Appears: Non-toxic, No Acute Distress - Head Exam Head Exam: ATRAUMATIC, NORMAL INSPECTION, NORMOCEPHALIC - Eye Exam Eye Exam: EOMI - ENT Exam ENT Exam: Mucous Membranes Moist - Neck Exam Neck exam: Positive for: Normal Inspection - Respiratory Exam Respiratory Exam: absent: Respiratory Distress - Cardiovascular Exam Cardiovascular Exam: +S1, +S2 - GI/Abdominal Exam GI & Abdominal Exam: Distended, Hernia. absent: Guarding, Rebound, Tenderness - Extremities Exam Extremities exam: Positive for: full ROM. Negative for: normal inspection Additional comments: positive PVD - Neurological Exam Neurological exam: Alert, Oriented x3 - Psychiatric Exam Psychiatric exam: Normal Affect, Normal Mood - Skin Skin Exam: Dry, Intact, Normal Color, Warm Results - Vital Signs Recent Vital Signs: Last Vital Signs Temp 98.1 F 03/03/17 06:00 Pulse 60 03/03/17 06:00 Resp 18 03/03/17 06:00 BP 84/47 L 03/03/17 06:00 Pulse Ox 95 03/03/17 06:00 - Labs Result Diagrams: 03/03/17 06:30 03/03/17 06:30 Labs: Laboratory Results - last 24 hr 03/02/17 03/02/17 03/03/17 21:50 23:11 06:30 WBC RBC Hgb Hct MCV MCH MCHC RDW Plt Count MPV Gran % Lymph % (Auto) [place] % (Auto) Eos % (Auto) Baso % (Auto) Gran # Lymph # [place] # Eos # Baso # pO2 27 L VBG pH 7.25 L VBG pCO2 63.0 H VBG HCO3 27.6 VBG Total CO2 29.5 H VBG O2 Sat (Calc) 53.3 VBG Base Excess -1.0 L VBG Potassium 4.3 Glucose 105 Lactate 2.2 H FiO2 21.0 Sodium 130 L 128.0 L Potassium 4.1 Chloride 90 L D 91.0 L Carbon Dioxide 25 Anion Gap 19 BUN 64 H Creatinine 2.5 H Est GFR ( Amer) 23 Est GFR (Non-Af Amer) 19 Random Glucose 124 H Lactic Acid Calcium 9.4 Total Bilirubin AST ALT Alkaline Phosphatase Total Protein Albumin Globulin Albumin/Globulin Ratio Procalcitonin 3.11 H Venous Blood Potassium 4.3 03/03/17 03/03/17 03/03/17 06:30 06:30 06:45 WBC 12.9 H D RBC 4.39 Hgb 12.8 D Hct 38.4 MCV 87.5 MCH 29.2 MCHC 33.3 RDW 14.4 Plt Count 272 MPV 10.0 Gran % 77.5 H Lymph % (Auto) 10.4 L [place] % (Auto) 11.9 H Eos % (Auto) 0.1 L Baso % (Auto) 0.1 Gran # 10.02 H Lymph # 1.3 Ripley # 1.5 H Eos # 0.0 Baso # 0.01 pO2 87 H VBG pH 7.33 VBG pCO2 46.0 VBG HCO3 24.3 VBG Total CO2 25.7 VBG O2 Sat (Calc) 98.3 H VBG Base Excess -1.9 L VBG Potassium 4.2 Glucose 97 Lactate 1.5 FiO2 21.0 Sodium 129 L 127.0 L Potassium 4.2 Chloride 94 L 94.0 L Carbon Dioxide 24 Anion Gap 16 BUN 72 H Creatinine 2.6 H Est GFR ( Amer) 22 Est GFR (Non-Af Amer) 18 Random Glucose 90 Lactic Acid Calcium 8.5 Total Bilirubin 1.6 H AST 24 ALT 28 Alkaline Phosphatase 58 Total Protein 6.0 Albumin 2.9 L Globulin 3.1 Albumin/Globulin Ratio 0.9 L Procalcitonin Venous Blood Potassium 4.2 03/03/17 06:45 WBC RBC Hgb Hct MCV MCH MCHC RDW Plt Count MPV Gran % Lymph % (Auto) [place] % (Auto) Eos % (Auto) Baso % (Auto) Gran # Lymph # [place] # Eos # Baso # pO2 VBG pH VBG pCO2 VBG HCO3 VBG Total CO2 VBG O2 Sat (Calc) VBG Base Excess VBG Potassium Glucose Lactate FiO2 Sodium Potassium Chloride Carbon Dioxide Anion Gap BUN Creatinine Est GFR ( Amer) Est GFR (Non-Af Amer) Random Glucose Lactic Acid 1.3 Calcium Total Bilirubin AST ALT Alkaline Phosphatase Total Protein Albumin Globulin Albumin/Globulin Ratio Procalcitonin Venous Blood Potassium Assessment & Plan - Assessment and Plan (Free Text) Assessment: This is a 76 yo female with past medical hx of HTN, DM, COPD presenting with abdominal pain and vomiting x 5 days. ID consulted for elevated WBC count. 1. Leukocytosis -likely secondary to stress or reactive in nature. -small bowel obstruction likely secondary to hernia -r/o infection -urine culture pending -blood culture pending -continue IV flagyl 500 mg q 8 hrs -continue IV zosyn 2.25 g q 8 hrs, modified dosing per pt's reduced CrCl -if cultures negative, may consider discontinuing abx -renal ultrasound pending -continue management per surgery. discussed with Dr. Orta <James Orta - Last Filed: 03/03/17 18:00> Meds - Medications Medications: Current Medications Famotidine (Pepcid) 20 mg IVP BID [facility] Last Admin: 03/03/17 09:37 Dose: 20 mg Hydromorphone HCl (Dilaudid) 0.5 mg IVP Q4H PRN PRN Reason: Pain, severe (8-10) Metronidazole (Flagyl) 500 mg in 100 mls @ 100 mls/hr IVPB Q8 [facility] PRN Reason: Protocol Last Admin: 03/03/17 14:57 Dose: 100 mls/hr Lactated Ringer's (Lactated Ringer's) 1,000 mls @ 150 mls/hr IV .Q6H40M [facility] Last Admin: 03/03/17 13:33 Dose: Not Given Piperacillin Sod/Tazobactam Sod (Zosyn 2.25 Gm In 0.9% 100 Ml) 2.25 gm in 100 mls @ 100 mls/hr IV Q8 [facility]RE PRN Reason: Protocol Stop: 03/12/17 14:01 Last Admin: 03/03/17 13:32 Dose: 100 mls/hr Morphine Sulfate (Morphine) 4 mg IVP Q6H PRN PRN Reason: Pain, moderate (4-7) Results - Vital Signs Recent Vital Signs: Last Vital Signs Temp 98.7 F 03/03/17 08:00 Pulse 75 03/03/17 14:00 Resp 18 03/03/17 08:00 BP 110/60 03/03/17 08:00 Pulse Ox 96 03/03/17 08:00 - Labs Result Diagrams: 03/03/17 06:30 03/03/17 06:30 Labs: Laboratory Results - last 24 hr 03/02/17 03/02/17 03/03/17 21:50 23:11 06:30 WBC RBC Hgb Hct MCV MCH MCHC RDW Plt Count MPV Gran % Lymph % (Auto) [place] % (Auto) Eos % (Auto) Baso % (Auto) Gran # Lymph # [place] # Eos # Baso # pO2 27 L VBG pH 7.25 L VBG pCO2 63.0 H VBG HCO3 27.6 VBG Total CO2 29.5 H VBG O2 Sat (Calc) 53.3 VBG Base Excess -1.0 L VBG Potassium 4.3 Glucose 105 Lactate 2.2 H FiO2 21.0 Sodium 130 L 128.0 L Potassium 4.1 Chloride 90 L D 91.0 L Carbon Dioxide 25 Anion Gap 19 BUN 64 H Creatinine 2.5 H Est GFR ( Amer) 23 Est GFR (Non-Af Amer) 19 Random Glucose 124 H Lactic Acid Calcium 9.4 Total Bilirubin AST ALT Alkaline Phosphatase Total Protein Albumin Globulin Albumin/Globulin Ratio Procalcitonin 3.11 H Venous Blood Potassium 4.3 03/03/17 03/03/17 03/03/17 06:30 06:30 06:45 WBC 12.9 H D RBC 4.39 Hgb 12.8 D Hct 38.4 MCV 87.5 MCH 29.2 MCHC 33.3 RDW 14.4 Plt Count 272 MPV 10.0 Gran % 77.5 H Lymph % (Auto) 10.4 L [place]y % (Auto) 11.9 H Eos % (Auto) 0.1 L Baso % (Auto) 0.1 Gran # 10.02 H Lymph # 1.3 Ripley # 1.5 H Eos # 0.0 Baso # 0.01 pO2 87 H VBG pH 7.33 VBG pCO2 46.0 VBG HCO3 24.3 VBG Total CO2 25.7 VBG O2 Sat (Calc) 98.3 H VBG Base Excess -1.9 L VBG Potassium 4.2 Glucose 97 Lactate 1.5 FiO2 21.0 Sodium 129 L 127.0 L Potassium 4.2 Chloride 94 L 94.0 L Carbon Dioxide 24 Anion Gap 16 BUN 72 H Creatinine 2.6 H Est GFR ( Amer) 22 Est GFR (Non-Af Amer) 18 Random Glucose 90 Lactic Acid Calcium 8.5 Total Bilirubin 1.6 H AST 24 ALT 28 Alkaline Phosphatase 58 Total Protein 6.0 Albumin 2.9 L Globulin 3.1 Albumin/Globulin Ratio 0.9 L Procalcitonin Venous Blood Potassium 4.2 03/03/17 06:45 WBC RBC Hgb Hct MCV MCH MCHC RDW Plt Count MPV Gran % Lymph % (Auto) [place] % (Auto) Eos % (Auto) Baso % (Auto) Gran # Lymph # [place] # Eos # Baso # pO2 VBG pH VBG pCO2 VBG HCO3 VBG Total CO2 VBG O2 Sat (Calc) VBG Base Excess VBG Potassium Glucose Lactate FiO2 Sodium Potassium Chloride Carbon Dioxide Anion Gap BUN Creatinine Est GFR ( Amer) Est GFR (Non-Af Amer) Random Glucose Lactic Acid 1.3 Calcium Total Bilirubin AST ALT Alkaline Phosphatase Total Protein Albumin Globulin Albumin/Globulin Ratio Procalcitonin Venous Blood Potassium Assessment & Plan - Assessment and Plan (Free Text) Assessment: Infectious Diseases Attending Physician Attestation Patient seen and examined, discussed with quality engineer medical device. I have reviewed the patient HPI, ROS, family, past medical, personal and social histories, physical exam, labs and imaging studies, assessment and plan of the quality engineer medical device. I agree with the above findings, assessment and plan. In addition, we will continue Zosyn for now for SIRS probably due to small bowel obstruction from ventral hernia, R/O sepsis. Will check blood cx. If cx continue to be negative in 48 hours, may consider discontinuing antibiotics.
[2017-03-03] MEDS: Piperacillin/Tazobact 2.25gm 2.25 GM/100 ML BAG IV SCH ×2 (13:32→22:19)
--- NOTE | 2017-03-03 18:08 | US ---
PROCEDURE: Ultrasound of the Kidneys HISTORY: r/o obstruction/ hydro COMPARISON: None available. TECHNIQUE: Sonogram of the kidneys. FINDINGS: RIGHT KIDNEY: Measures: 4.7 x 12.3 cm. Normal in size, contour and echogenicity. No stone, solid mass lesion or hydronephrosis visualized. LEFT KIDNEY: Measures: 6.6 x 10.8 go there which finally connect cm. Normal in size, contour and echogenicity. No stone, solid mass lesion or hydronephrosis visualized. OTHER FINDINGS: None. IMPRESSION: Unremarkable renal sonogram.
[2017-03-03] MEDS: Sodium Chloride 0.9% 1,000 ML IV SCH (23:56)
--- NOTE | 2017-03-04 01:16 | HP ---
DATE OF EVALUATION: 03/03/2017 HISTORY OF PRESENT ILLNESS: Ms. Casarez is a 76-year-old female presented to the ED with nausea, vomiting, and abdominal pain for past three days. CT abdomen showed small bowel obstruction likely related to ventral hernia. She has history of COPD, diabetes mellitus type 2, and adrenal adenoma. She also has morbid obesity. Evaluated by Surgery. NG tube placed for suction. PAST MEDICAL HISTORY: Hypertension, peripheral vascular disease, COPD, diabetes mellitus type 2, arthritis, back pain, ventral hernia, and incontinence. PAST SURGICAL HISTORY: Cholecystectomy and hysterectomy. FAMILY HISTORY: Noncontributory. PERSONAL HISTORY: Heavy smoker, continues to smoke more than 10 cigarettes a day. No history of alcohol abuse. ALLERGIES: NO KNOWN DRUG ALLERGIES. HOME MEDICATIONS: Metformin 1000 mg p.o. b.i.d., lisinopril 40 mg daily, Crestor 10 mg at bedtime. REVIEW OF SYSTEMS: As per HPI. Rest of 12-point review of systems reviewed negative. PHYSICAL EXAMINATION GENERAL: Comfortable in bed, in no acute distress. VITAL SIGNS: Temperature 97.8, heart rate 72 per minute, respiratory rate 20 per minute, blood pressure 110/70, and pulse ox is 99% on room air. HEENT: Pallor positive. NECK: Supple. CHEST: Air entry present equal bilateral. No added sound. CARDIOVASCULAR: S1 and S2 normal. No murmur. No gallop. ABDOMEN: Soft, nontender, and distended. Bowel sound decreased. EXTREMITIES: No edema. PSYCH: Drowsy, arousable, and not very communicative. NG tube in place, draining dark colored fluid. LABORATORY DATA: White count 19,000, hemoglobin 15, hematocrit 44, and platelets 290. Sodium 140, potassium 1.5, BUN 26, creatinine 0.9, and glucose 55. CT abdomen and pelvis as per HPI. ASSESSMENT AND PLAN: 1. Small bowel obstruction likely related to ventral hernia. 2. Leukocytosis. 3. Hypokalemia. 4. Anemia. PLAN: She will be admitted to the hospital. Surgery consultation Dr. Cool requested. IV antibiotic, Zosyn and Flagyl started. ID consultation Dr. Payan requested. IV fluid at 80 mL an hour normal saline, Dilaudid p.r.n. for pain 0.5 mg q. 4 hours p.r.n. Pepcid 20 mg IV p.o. b.i.d. We will continue to monitor clinically. Labs ordered for tomorrow. Senia Muse MD
[2017-03-04] MEDS: Piperacillin/Tazobact 2.25gm 2.25 GM/100 ML BAG IV SCH ×3 (05:21→23:00)
[2017-03-04] MEDS: metroNIDAZOLE IV 500 mg/100 ml 500 MG/100 ML BAG IVPB SCH (06:32)
--- NOTE | 2017-03-04 12:59 | CP.PCM.PN ---
<Matt Lynn - Last Filed: 03/04/17 13:01> Subjective - Date & Time of Evaluation Date of Evaluation: 03/04/17 Time of Evaluation: 13:00 - Subjective Subjective: Infectious disease progress note. Attending: Dr. Orta Pt seen and examined at bedside. No acute distress. No events overnight. Pt with NG tube in place. No fevers. Pt reports minimal pain. Denies bowel movement or flatus. Renal ultrasound negative. Objective - Vital Signs/Intake and Output Vital Signs (last 24 hours): Temp Pulse Resp BP Pulse Ox 98.0 F 84 20 118/54 L 94 L 03/04/17 07:30 03/04/17 07:30 03/04/17 07:30 03/04/17 07:30 03/04/17 07:30 Intake and Output: 03/04/17 03/04/17 06:59 18:59 Intake Total 720 Output Total 250 Balance 470 - Medications Medications: Current Medications Famotidine (Pepcid) 20 mg IVP BID [facility] Last Admin: 03/04/17 10:37 Dose: 20 mg Hydromorphone HCl (Dilaudid) 0.5 mg IVP Q4H PRN PRN Reason: Pain, severe (8-10) Piperacillin Sod/Tazobactam Sod (Zosyn 2.25 Gm In 0.9% 100 Ml) 2.25 gm in 100 mls @ 100 mls/hr IV Q8 ALEXNADRE PRN Reason: Protocol Stop: 03/12/17 14:01 Last Admin: 03/04/17 05:21 Dose: 100 mls/hr Sodium Chloride (Sodium Chloride 0.9%) 1,000 mls @ 80 mls/hr IV .[id number] [facility] Last Admin: 03/03/17 23:56 Dose: 80 mls/hr Morphine Sulfate (Morphine) 4 mg IVP Q6H PRN PRN Reason: Pain, moderate (4-7) - Labs Labs: 03/03/17 06:30 03/03/17 06:30 PT 13.6 SECONDS (9.4-12.5) H 03/02/17 18:18 INR 1.24 (0.93-1.08) H 03/02/17 18:18 APTT 27.3 Seconds (25.1-36.5) 03/02/17 18:18 - Constitutional Appears: Non-toxic, No Acute Distress - Head Exam Head Exam: ATRAUMATIC, NORMAL INSPECTION, NORMOCEPHALIC - Eye Exam Eye Exam: Normal appearance - ENT Exam ENT Exam: Mucous Membranes Moist - Neck Exam Neck Exam: Full ROM - Respiratory Exam Respiratory Exam: absent: Respiratory Distress - Cardiovascular Exam Cardiovascular Exam: +S1, +S2 - GI/Abdominal Exam GI & Abdominal Exam: Distended, Hernia. absent: Guarding, Rigid, Rebound - Extremities Exam Extremities Exam: Full ROM. absent: Normal Inspection Additional comments: positive PVD - Neurological Exam Neurological Exam: Alert, Awake - Psychiatric Exam Psychiatric exam: Normal Affect, Normal Mood - Skin Skin Exam: Dry, Intact, Normal Color, Warm Assessment and Plan - Assessment and Plan (Free Text) Assessment: This is a 76 yo female with past medical hx of HTN, DM, COPD presenting with abdominal pain and vomiting x 5 days. ID consulted for elevated WBC count. 1. Leukocytosis -likely secondary to stress or reactive in nature. -small bowel obstruction likely secondary to hernia -r/o infection, sepsis -pt has been afebrile -urine culture pending -2 blood cultures negative x 24 hours -continue IV flagyl 500 mg q 8 hrs -continue IV zosyn 2.25 g q 8 hrs, modified dosing per pt's reduced CrCl -if cultures negative x 48 hrs, may consider discontinuing abx -renal ultrasound negative -procalcitonin elevated at 3.11; however, this may be due to release of procalcitonin in GI tract secondary to pt's small bowel obstruction -continue management per surgery. discussed with Dr. Orta <James Orta - Last Filed: 03/04/17 16:24> Objective - Vital Signs/Intake and Output Vital Signs (last 24 hours): Temp Pulse Resp BP Pulse Ox 98.0 F 84 20 118/54 L 94 L 03/04/17 07:30 03/04/17 07:30 03/04/17 07:30 03/04/17 07:30 03/04/17 07:30 Intake and Output: 03/04/17 03/04/17 06:59 18:59 Intake Total 720 Output Total 250 Balance 470 - Medications Medications: Current Medications Famotidine (Pepcid) 20 mg IVP BID [facility] Last Admin: 03/04/17 10:37 Dose: 20 mg Hydromorphone HCl (Dilaudid) 0.5 mg IVP Q4H PRN PRN Reason: Pain, severe (8-10) Piperacillin Sod/Tazobactam Sod (Zosyn 2.25 Gm In 0.9% 100 Ml) 2.25 gm in 100 mls @ 100 mls/hr IV Q8 [facility] PRN Reason: Protocol Stop: 03/12/17 14:01 Last Admin: 03/04/17 13:42 Dose: 100 mls/hr Sodium Chloride (Sodium Chloride 0.9%) 1,000 mls @ 80 mls/hr IV .[id number] [facility] Last Admin: 03/03/17 23:56 Dose: 80 mls/hr Morphine Sulfate (Morphine) 4 mg IVP Q6H PRN PRN Reason: Pain, moderate (4-7) - Labs Labs: 03/03/17 06:30 03/03/17 06:30 PT 13.6 SECONDS (9.4-12.5) H 03/02/17 18:18 INR 1.24 (0.93-1.08) H 03/02/17 18:18 APTT 27.3 Seconds (25.1-36.5) 03/02/17 18:18 Assessment and Plan - Assessment and Plan (Free Text) Assessment: Infectious Diseases Attending Physician Attestation Patient seen and examined, discussed with certified medical asst. I agree with above findings, assessment and plan.
--- NOTE | 2017-03-04 13:03 | RAD ---
HISTORY: SBO COMPARISON: Abdomen series 59501. FINDINGS: BOWEL: Knees is too identified placed with tip terminating in the left upper quadrant abdomen. It may not be terminating in the gastric fundus however advancement of the catheter 10-15 cm antegrade is advised follow-up by confirmation radiography. Bowel gas pattern appears nonobstructive grossly. No free intraperitoneal gas is evident at this time. BONES: Multilevel degenerative spondylosis as well as degenerative sacroiliac and hip joint changes. No definite destructive bone lesion appreciable. OTHER FINDINGS: None. IMPRESSION: Nonobstructive bowel gas pattern. Nature to the placed requiring further advancement into the stomach some 10-15 cm pelves confirmation radiography.
--- NOTE | 2017-03-04 13:30 | PN ---
DATE: 03/04/2017 SUBJECTIVE: The patient states she is feeling better in her abdomen. She has no complaints of any nausea. No chest pain. PHYSICAL EXAMINATION: VITAL SIGNS: Temperature is 97.9, pulse is 77, blood pressure is 123/56, and respirations are 18. GENERAL: The patient is lying in bed, flat, comfortable. HEENT: No oral lesion. Anicteric sclerae. Moist mucosa. NECK: No JVD, adenopathy, or thyromegaly. CARDIOVASCULAR: S1 and S2, regular. No murmurs, rubs, or gallops. LUNGS: Clear to auscultation bilaterally. No wheeze, rales, or rhonchi. ABDOMEN: Bowel sounds are positive, soft, nontender and nondistended. EXTREMITIES: No cyanosis, clubbing or edema. ASSESSMENT: 1. Leukocytosis/systemic inflammatory response syndrome. 2. Small bowel obstruction. 3. Hypokalemia. 4. Anemia, chronic. PLAN: The patient is currently comfortable. She is on Zosyn for antibiotics. She is on IV fluids. She is going to continue with morphine for pain. She is on Flagyl. The patient has remained n.p.o. She is being followed by Infectious Diseases and also Surgery. I appreciate their input. The patient's white count is improving. Mele Cuellar MD
--- NOTE | 2017-03-04 15:52 | CP.PCM.PN ---
Subjective - Date & Time of Evaluation Date of Evaluation: 03/04/17 Time of Evaluation: 11:05 - Subjective Subjective: General Surgery - Dr. Cool Patient seen and evaluated at bedside. No acute events reported overnight. Patient continues to have good output from NGT tube. Patient reports passing flatus, denies BM. Reports hunger at this time. Patient denies chest pain, shortness of breath, diarrhea, nausea, vomiting, fever, chills. Objective - Vital Signs/Intake and Output Vital Signs (last 24 hours): Temp Pulse Resp BP Pulse Ox 98.0 F 84 20 118/54 L 94 L 03/04/17 07:30 03/04/17 07:30 03/04/17 07:30 03/04/17 07:30 03/04/17 07:30 Intake and Output: 03/04/17 03/04/17 06:59 18:59 Intake Total 720 Output Total 250 Balance 470 - Medications Medications: Current Medications Famotidine (Pepcid) 20 mg IVP BID [facility] Last Admin: 03/04/17 10:37 Dose: 20 mg Hydromorphone HCl (Dilaudid) 0.5 mg IVP Q4H PRN PRN Reason: Pain, severe (8-10) Piperacillin Sod/Tazobactam Sod (Zosyn 2.25 Gm In 0.9% 100 Ml) 2.25 gm in 100 mls @ 100 mls/hr IV Q8 [facility] PRN Reason: Protocol Stop: 03/12/17 14:01 Last Admin: 03/04/17 13:42 Dose: 100 mls/hr Sodium Chloride (Sodium Chloride 0.9%) 1,000 mls @ 80 mls/hr IV .[id number] [facility] Last Admin: 03/03/17 23:56 Dose: 80 mls/hr Morphine Sulfate (Morphine) 4 mg IVP Q6H PRN PRN Reason: Pain, moderate (4-7) - Labs Labs: 03/03/17 06:30 03/03/17 06:30 PT 13.6 SECONDS (9.4-12.5) H 03/02/17 18:18 INR 1.24 (0.93-1.08) H 03/02/17 18:18 APTT 27.3 Seconds (25.1-36.5) 03/02/17 18:18 - Constitutional Appears: No Acute Distress - Head Exam Head Exam: ATRAUMATIC - Eye Exam Eye Exam: EOMI, PERRL - ENT Exam ENT Exam: Mucous Membranes Moist - Respiratory Exam Respiratory Exam: Clear to Ausculation Bilateral, NORMAL BREATHING PATTERN. absent: Rales, Wheezes - Cardiovascular Exam Cardiovascular Exam: Tachycardia, +S1, +S2 - GI/Abdominal Exam GI & Abdominal Exam: Distended, Firm (at hernia site), Tenderness. absent: Guarding Additional comments: tender to palpation around hernia site/pannus - Extremities Exam Extremities Exam: absent: Calf Tenderness, Tenderness - Neurological Exam Neurological Exam: Alert, Awake - Psychiatric Exam Psychiatric exam: Normal Affect - Skin Skin Exam: Dry, Intact. absent: Rash Assessment and Plan - Assessment and Plan (Free Text) Assessment: 76F w/ recurrent small bowel obstruction CT scan shows ventral hernia x2 w/ inferior hernia most likely being the source of the obstruction Plan: - NPO - IVF/ABx - pain control and anti-emetic PRN - NGT to low cont suction, continue to monitor output - serial abd exams - Patient reporting passing flatus and hunger, will continue to monitor - further recommendations per Dr. Travon Kunz [id number]
[2017-03-04] MEDS: Sodium Chloride 0.9% 1,000 ML IV SCH (17:40)
[2017-03-04] MEDS ORDERED: Morphine 4 mg/ml ISec IVP PRN (23:26)
[2017-03-05] MEDS: Sodium Chloride 0.9% 1,000 ML IV SCH ×2 (05:43→22:20)
[2017-03-05] MEDS: Piperacillin/Tazobact 2.25gm 2.25 GM/100 ML BAG IV SCH ×3 (07:10→22:19)
[2017-03-05 07:13] LABS: HEMOGLOBIN 12.8 g/dL (12.0-16.0); MEAN CELL VOLUME 89.4 fl (80.0-105.0); MEAN CORPUSCULAR HEMOGLOBIN 28.9 pg (25.0-35.0); MEAN CORPUSCULAR HGB CONC 32.3 g/dl (31.0-37.0); MEAN PLATELET VOLUME 9.5 fl (7.0-11.0); RBC 4.43 10^6/uL (3.5-6.1); RED CELL DISTRIBUTION WIDTH 14.5 % (11.5-14.5); WHITE BLOOD COUNT 11.3 10^3/ul (4.5-11.0)
[2017-03-05 07:56] LABS: ALB/GLOB RATIO 0.9 (1.1-1.8); ALBUMIN 2.9 g/dL (3.0-4.8); ALT/SGPT 29 U/L (7-56); AST/SGOT 31 U/L (14-36); BLOOD UREA NITROGEN 49 mg/dL (7-21); CALCIUM 8.9 mg/dL (8.4-10.5); GFR AFRICAN-AMERICAN > 60; GFR NON-AFRICAN AMERICAN 54; MAGNESIUM 2.4 mg/dL (1.7-2.2)
--- NOTE | 2017-03-05 09:14 | CP.PCM.PN ---
Subjective - Date & Time of Evaluation Date of Evaluation: 03/05/17 Time of Evaluation: 09:08 - Subjective Subjective: General Surgery - Dr. Cool Patient seen and examined this AM. Overnight patient reportedly pulled out NGT tube and requested to leave AMA. Patient ended up staying at hospital. Patient today complains of nausea, abdominal discomfort and sore throat. Patient reports feeling hungry and is requesting liquids. Patient denies chest chest pain, shortness of breath, vomiting, fever, chills. Objective - Vital Signs/Intake and Output Vital Signs (last 24 hours): Temp Pulse Resp BP Pulse Ox 98.2 F 67 16 99/41 L 94 L 03/04/17 17:12 03/04/17 17:12 03/04/17 17:12 03/04/17 17:12 03/04/17 07:30 Intake and Output: 03/05/17 03/05/17 06:59 18:59 Intake Total 0 Balance 0 - Medications Medications: Current Medications Famotidine (Pepcid) 20 mg IVP BID [facility] Last Admin: 03/04/17 17:38 Dose: 20 mg Piperacillin Sod/Tazobactam Sod (Zosyn 2.25 Gm In 0.9% 100 Ml) 2.25 gm in 100 mls @ 100 mls/hr IV Q8 [facility] PRN Reason: Protocol Stop: 03/12/17 14:01 Last Admin: 03/05/17 07:10 Dose: 100 mls/hr Sodium Chloride (Sodium Chloride 0.9%) 1,000 mls @ 80 mls/hr IV .[id number] [facility] Last Admin: 03/05/17 05:43 Dose: 80 mls/hr Morphine Sulfate (Morphine) 4 mg IVP Q4 PRN PRN Reason: Pain, moderate (4-7) - Labs Labs: 03/05/17 06:45 03/05/17 06:45 PT 13.6 SECONDS (9.4-12.5) H 03/02/17 18:18 INR 1.24 (0.93-1.08) H 03/02/17 18:18 APTT 27.3 Seconds (25.1-36.5) 03/02/17 18:18 - Constitutional Appears: Non-toxic - Head Exam Head Exam: ATRAUMATIC - Eye Exam Eye Exam: EOMI, PERRL - ENT Exam ENT Exam: Mucous Membranes Dry - Respiratory Exam Respiratory Exam: Clear to Ausculation Bilateral, NORMAL BREATHING PATTERN. absent: Rales, Wheezes - Cardiovascular Exam Cardiovascular Exam: +S1, +S2. absent: Tachycardia - GI/Abdominal Exam GI & Abdominal Exam: Distended, Firm (umbilical region representing hernia), Tenderness (to palpation at mid to lower abdomen associated with hernia), Diminished Bowel Sounds. absent: Guarding - Extremities Exam Extremities Exam: Pedal Edema (+1). absent: Calf Tenderness - Neurological Exam Neurological Exam: Alert, Awake - Psychiatric Exam Psychiatric exam: Normal Affect - Skin Skin Exam: Dry, Intact. absent: Rash Assessment and Plan - Assessment and Plan (Free Text) Assessment: 76F w/ recurrent small bowel obstruction CT scan shows ventral hernia x2 w/ inferior hernia most likely being the source of the obstruction Plan: - Start patient on clear liquid diet and monitor for vomiting - If patient unable to tolerate diet then place NGT - IVF/ABx - pain control and anti-emetic PRN - serial abd exams - Patient reporting passing flatus and hunger, will continue to monitor - further recommendations per Dr. Travon Kunz PGY1
--- NOTE | 2017-03-05 12:39 | PN ---
DATE: SUBJECTIVE: The patient has no complaints of any chest pain or shortness of breath. She says she is feeling better. She is asking about eating. PHYSICAL EXAMINATION VITAL SIGNS: Temperature is 98.2, pulse is 67, blood pressure 99/41, and respirations 16. GENERAL: The patient is lying in bed, flat, comfortable. HEENT: No oral lesion. Anicteric sclerae. Moist mucosa. NECK: No JVD, adenopathy, or thyromegaly. CARDIOVASCULAR: S1 and S2, regular. No murmurs, rubs, or gallops. LUNGS: Clear to auscultation bilaterally. No wheeze, rales, or rhonchi. ABDOMEN: Bowel sounds are positive, soft, nontender and nondistended. EXTREMITIES: No cyanosis, clubbing or edema. LABORATORY DATA: White count of 11.3, hemoglobin 12.8, and creatinine 1.0. ASSESSMENT: 1. Leucocytosis, improved. 2. Small-bowel obstruction, improving. 3. Hypokalemia, improved. 4. Anemia, chronic. 5. Hyponatremia. PLAN: The patient is much more comfortable as her NG tube is out. The patient's white count is back to normal. She has been passing gas. She is on Zosyn for antibiotics. Her blood cultures have been negative. Her hyponatremia has improved. She is on morphine for pain. She is getting normal saline. She is on liquid diet. She is being followed by Surgery. Mele Cuellar MD
[2017-03-06] MEDS: Piperacillin/Tazobact 2.25gm 2.25 GM/100 ML BAG IV SCH (05:56)
[2017-03-06] MEDS ORDERED: Oxycodone/Acetaminophen 5/325 mg Tab PO PRN (10:08)
--- NOTE | 2017-03-06 10:26 | PN ---
DATE: 03/06/2017 SUBJECTIVE: The patient is currently comfortable. She is on a liquid diet. She did have episode of vomiting yesterday. PHYSICAL EXAMINATION VITAL SIGNS: Temperature is 98.1, pulse is 70, blood pressure 118/51, and respirations 20. GENERAL: The patient is lying in bed, flat, comfortable. HEENT: No oral lesion. Anicteric sclerae. Moist mucosa. NECK: No JVD, adenopathy, or thyromegaly. CARDIOVASCULAR: S1 and S2, regular. No murmurs, rubs, or gallops. LUNGS: Clear to auscultation bilaterally. No wheeze, rales, or rhonchi. ABDOMEN: Bowel sounds are positive, soft, nontender and nondistended. EXTREMITIES: No cyanosis, clubbing or edema. LABORATORY DATA: White count of 11.3, hemoglobin 12.8, and creatinine 1.0. ASSESSMENT: 1. Leucocytosis, improved. 2. Small-bowel obstruction, improving. 3. Hypokalemia, improved. 4. Anemia, chronic. 5. Hyponatremia, resolved. 6. Delirium. PLAN: The patient is on IV fluid. I will discontinue the patient's IV fluids that she is able to tolerate her liquid diet. The patient is on Zosyn for antibiotics. The blood cultures have been negative. The patient is on Pepcid. She is on morphine for pain. Mele Cuellar MD
--- NOTE | 2017-03-06 10:56 | CP.PCM.PN ---
Subjective - Date & Time of Evaluation Date of Evaluation: 03/06/17 Time of Evaluation: 07:00 - Subjective Subjective: GENERAL SURGERY PROGRESS NOTE FOR DR. MUIR Patient seen and examined at bedside. She has not had a BM yet. She is passing a little bit of flatus "here and there". She reports that her abdomen is "sore" . She does not have an appetite. She walked a little yesterday. She vomited some this AM and again later in the morning. An NG tube was placed and 800cc brown liquid was removed. Patient expressed relief of sx after NG tube. Objective - Vital Signs/Intake and Output Vital Signs (last 24 hours): Temp Pulse Resp BP Pulse Ox 98.1 F 70 20 118/51 L 92 L 03/05/17 16:00 03/05/17 16:00 03/05/17 16:00 03/05/17 16:00 03/05/17 16:00 Intake and Output: 03/06/17 03/06/17 06:59 18:59 Intake Total 900 Balance 900 - Medications Medications: Current Medications Docusate Sodium (Colace Liquid) 100 mg PO TID [facility] Last Admin: 03/06/17 09:25 Dose: 100 mg Famotidine (Pepcid) 20 mg IVP BID [facility] Last Admin: 03/06/17 09:25 Dose: 20 mg Piperacillin Sod/Tazobactam Sod (Zosyn 2.25 Gm In 0.9% 100 Ml) 2.25 gm in 100 mls @ 100 mls/hr IV Q8 [facility] PRN Reason: Protocol Stop: 03/12/17 14:01 Last Admin: 03/06/17 05:56 Dose: 100 mls/hr Oxycodone/Acetaminophen (Percocet 5/325 Mg Tab) 1 tab PO Q4H PRN PRN Reason: Pain, moderate (4-7) Stop: 03/09/17 10:09 - Labs Labs: 03/05/17 06:45 03/05/17 06:45 PT 13.6 SECONDS (9.4-12.5) H 03/02/17 18:18 INR 1.24 (0.93-1.08) H 03/02/17 18:18 APTT 27.3 Seconds (25.1-36.5) 03/02/17 18:18 - Constitutional Appears: Non-toxic, No Acute Distress - Respiratory Exam Respiratory Exam: NORMAL BREATHING PATTERN. absent: Respiratory Distress - Cardiovascular Exam Cardiovascular Exam: +S1, +S2 - GI/Abdominal Exam GI & Abdominal Exam: Firm (over hernia site), Soft, Tenderness (mild tenderness) , Hernia (large ventral hernia). absent: Distended - Neurological Exam Neurological Exam: Alert, Awake, Oriented x3 - Psychiatric Exam Psychiatric exam: Normal Affect, Normal Mood - Skin Skin Exam: Dry, Normal Color, Warm Assessment and Plan - Assessment and Plan (Free Text) Assessment: 76F w/ recurrent small bowel obstruction CT scan shows ventral hernia x2 w/ inferior hernia most likely being the source of the obstruction Plan: - Due to vomiting this AM, patient made NPO again and NG tube replaced - NG tube put after 800cc after initial insertion - Possible OR tomorrow if patient doesn't improve - Serial abdominal exams - Discussed plan with Dr. Travon [place] PGY-2
--- NOTE | 2017-03-06 12:32 | RAD ---
HISTORY: NGT placement eval COMPARISON: 03/02/2017 FINDINGS: LUNGS: No active pulmonary disease. PLEURA: No significant pleural effusion identified, no pneumothorax apparent. CARDIOVASCULAR: Normal. OSSEOUS STRUCTURES: No significant abnormalities. VISUALIZED UPPER ABDOMEN: Normal. OTHER FINDINGS: None. IMPRESSION: NG tube in satisfactory position
--- NOTE | 2017-03-06 13:54 | CP.PCM.PN ---
Subjective - Date & Time of Evaluation Date of Evaluation: 03/06/17 Time of Evaluation: 12:45 - Subjective Subjective: On liquid diet but still has NGT and still had one episode of vomiting, no fevers overnight. Objective - Vital Signs/Intake and Output Vital Signs (last 24 hours): Temp Pulse Resp BP Pulse Ox 98.1 F 70 20 118/51 L 92 L 03/05/17 16:00 03/05/17 16:00 03/05/17 16:00 03/05/17 16:00 03/05/17 16:00 Intake and Output: 03/06/17 03/06/17 06:59 18:59 Intake Total 900 Output Total 800 Balance 900 -800 - Medications Medications: Current Medications Docusate Sodium (Colace Liquid) 100 mg PO TID [facility] Last Admin: 03/06/17 09:25 Dose: 100 mg Famotidine (Pepcid) 20 mg IVP BID [facility] Last Admin: 03/06/17 09:25 Dose: 20 mg Piperacillin Sod/Tazobactam Sod (Zosyn 2.25 Gm In 0.9% 100 Ml) 2.25 gm in 100 mls @ 100 mls/hr IV Q8 [facility] PRN Reason: Protocol Stop: 03/12/17 14:01 Last Admin: 03/06/17 05:56 Dose: 100 mls/hr Ondansetron HCl (Zofran Inj) 4 mg IVP Q6H PRN PRN Reason: Nausea/Vomiting Oxycodone/Acetaminophen (Percocet 5/325 Mg Tab) 1 tab PO Q4H PRN PRN Reason: Pain, moderate (4-7) Stop: 03/09/17 10:09 - Labs Labs: 03/05/17 06:45 03/05/17 06:45 PT 13.6 SECONDS (9.4-12.5) H 03/02/17 18:18 INR 1.24 (0.93-1.08) H 03/02/17 18:18 APTT 27.3 Seconds (25.1-36.5) 03/02/17 18:18 - Constitutional Appears: Chronically Ill - Head Exam Head Exam: NORMAL INSPECTION - ENT Exam Additional comments: NGT in place - Respiratory Exam Respiratory Exam: Decreased Breath Sounds - Cardiovascular Exam Cardiovascular Exam: +S1, +S2 - GI/Abdominal Exam GI & Abdominal Exam: Soft. absent: Tenderness Assessment and Plan - Assessment and Plan (Free Text) Plan: Assessment small bowel obstruction, slowly improving; no evidence of infection noted HTN DM COPD morbid obesity with BMI 44 Plan blood cx are negative; will d/c antibiotics and monitor
[2017-03-06] MEDS ORDERED: Potassium Chloride 10 MEQ in Dextrose 5%/0.45% NS 1,000 ML IV SCH (15:00)
[2017-03-06] MEDS ORDERED: Iohexol 240 (50 ml) ONE (15:14)
--- NOTE | 2017-03-06 15:21 | RAD ---
HISTORY: eval SBO COMPARISON: 03/04/2017 FINDINGS: BOWEL: Normal. No obstruction. No free air. BONES: Normal. OTHER FINDINGS: The NG tube is just beyond the GE junction. This could be advanced IMPRESSION: No active disease.
[2017-03-06 15:27] LABS: BASO # 0.08 K/mm3 (0.0-2.0); BASO % 0.4 % (0.0-3.0); GRAN # 13.7 (1.4-6.5); GRAN % 75.1 % (50.0-68.0); LYMPH # 2.3 (1.2-3.4); LYMPH % 12.6 % (22.0-35.0); MEAN CELL VOLUME 88.6 fl (80.0-105.0); MEAN CORPUSCULAR HEMOGLOBIN 29.4 pg (25.0-35.0); MEAN CORPUSCULAR HGB CONC 33.2 g/dl (31.0-37.0); MEAN PLATELET VOLUME 9.3 fl (7.0-11.0); MONO # 2.2 (0.1-0.6); MONO % 11.9 % (1.0-6.0); RBC 5.07 10^6/uL (3.5-6.1); RED CELL DISTRIBUTION WIDTH 14.6 % (11.5-14.5); WHITE BLOOD COUNT 18.3 10^3/ul (4.5-11.0)
[2017-03-06 15:28] LABS: HEMOGLOBIN 14.9 g/dL (12.0-16.0)
[2017-03-06 15:45] LABS: ALB/GLOB RATIO 0.9 (1.1-1.8); ALBUMIN 3.1 g/dL (3.0-4.8); ALT/SGPT 29 U/L (7-56); AST/SGOT 24 U/L (14-36); BLOOD UREA NITROGEN 36 mg/dL (7-21); CALCIUM 9.1 mg/dL (8.4-10.5); GFR AFRICAN-AMERICAN > 60; GFR NON-AFRICAN AMERICAN > 60; MAGNESIUM 2.2 mg/dL (1.7-2.2)
[2017-03-06 15:55] LABS: T4 9.1 ug/dL (5.5-11.0)
[2017-03-06 16:25] LABS: ARTERIAL BLOOD GAS HCO3 20.1 mmol/L (21-28); ARTERIAL BLOOD GAS HEMOGLOBIN 14.8 g/dL (11.7-17.4); ARTERIAL BLOOD GAS O2 CAPACITY 20.2 mL/dl (16-24); ARTERIAL BLOOD GAS O2 CONTENT 19.7 ML/dl (15-23); ARTERIAL BLOOD GAS O2 SAT 97.4 % (95-98); ARTERIAL BLOOD GAS PCO2 34 mm/Hg (35-45); ARTERIAL BLOOD GAS PH 7.38 (7.35-7.45); ARTERIAL BLOOD GAS TCO2 21.1 mmol.L (22-28)
[2017-03-06] MEDS ORDERED: NOREPINEPHRINE BIT/0.9 % NACL 4 MG/250 ML BAG IV PRN (19:24)
[2017-03-06] MEDS ORDERED: Vancomycin 1gm in NS 250ml 1 GM/250 ML BAG IVPB SCH (19:30)
--- NOTE | 2017-03-06 19:49 | CARD ---
APPROVED REPORT EKG Measurement Heart [id number] <Conclusion> Atrial fibrillation Nonspecific ST abnormality, probably digitalis effect Abnormal ECG
--- NOTE | 2017-03-06 20:00 | CT ---
EXAM: CT Abdomen and Pelvis Without Intravenous Contrast EXAM DATE/TIME: 03/06/2017 5:08 PM CLINICAL HISTORY: 76 years old, female; Signs and symptoms; Nausea and vomiting; Patient HX: Hernia, sbo TECHNIQUE: Axial computed tomography images of the abdomen and pelvis without intravenous contrast. All CT scans at this facility use one or more dose reduction techniques, viz.: automated exposure control; ma/kV adjustment per patient size (including targeted exams where dose is matched to indication; i.e. head); or iterative reconstruction technique. Coronal and sagittal reformatted images were created and reviewed. COMPARISON: Prior CT abdomen and pelvis of 2017-03-02 20:07 FINDINGS: LIMITATIONS: Artifact related to the patient's body habitus. LOWER THORAX: Mild consolidation in the posterior lung bases, most likely representing dependent atelectasis. ABDOMEN: LIVER: No acute abnormality of the liver identified. GALLBLADDER AND BILE DUCTS: Cholecystectomy clips. PANCREAS:1.4 cm round, peripherally calcified density is seen in the retroperitoneum, medial to the pancreatic head, of uncertain etiology, however, it could represent a small, peripherally calcified pancreatic lesion versus an aneurysm in. It appears stable. No CT evidence of acute pancreatitis. SPLEEN: No acute abnormality of the spleen identified. ADRENALS: 2.5 cm left adrenal lesion, having a CT attenuation of less than 10 Hounsfield units on this noncontrast exam, most likely representing a benign adenoma. KIDNEYS AND URETERS: Bilateral perinephric stranding, a nonspecific finding. No evidence of hydroureteronephrosis. STOMACH AND BOWEL: Free intraperitoneal air, compatible with a bowel perforation, in the absence of recent surgery. A moderate to large amount of free air is seen. There is also a moderate to large amount of free fluid in the abdomen and pelvis. The site of perforation is most likely the small bowel. There is free/extraluminal air abutting a small bowel loop in the right anterior pelvis, image 126 of series 3. There may also be pneumatosis involving the small bowel loop, and cannot exclude small bowel ischemia. There is evidence of a small bowel obstruction, which appears to be secondary to a ventral hernia in the anterior pelvic wall, containing multiple distal small bowel loops. There are multiple abnormally dilated small bowel loops seen throughout the abdomen. Transition point is seen, images 141-157 of series 3, within a distal small bowel loop exiting the ventral hernia, where there is a change in caliber of the small bowel and apparent constriction of the bowel exiting the hernia. The small bowel distal to this is decompressed. Some of the dilated small bowel loops are thick walled. This could be reactive in etiology, but it could also be a sign of bowel ischemia. Second ventral hernia, in the anterior abdominal wall, containing part of the transverse colon. No associated colonic obstruction. Retained stool noted throughout the colon. The rectum is stool filled and is mildly dilated. Colonic diverticulosis, with no evidence of acute diverticulitis. Duodenal diverticulum noted. APPENDIX: Normal appendix is not seen, however, there are no significant inflammatory changes visualized in the expected location of the appendix to suggest appendicitis. Recommend clinical correlation. PELVIS: BLADDER: No acute abnormality of the bladder identified. REPRODUCTIVE: Uterus is surgically absent. ABDOMEN and PELVIS: INTRAPERITONEAL SPACE: See above. No definite focal fluid collection/abscess. BONES/JOINTS: No acute fractures or other acute bony abnormality noted. SOFT TISSUES: See above. VASCULATURE: See above. Atherosclerotic calcification. No evidence of abdominal aortic aneurysm. LYMPH NODES: No evidence of diffuse lymphadenopathy. IMPRESSION: - Free intraperitoneal air, compatible with a bowel perforation. The site of perforation appears to be the small bowel. There is a small bowel obstruction due to a ventral hernia in the anterior pelvic wall, containing multiple distal small bowel loops. Cannot exclude ischemia of the small bowel caused by the obstructive dilatation. - Moderate pelvic and abdominal free fluid. - See above for remaining findings.
[2017-03-06 20:04] LABS: ARTERIAL BLOOD GAS O2 SAT 99.9 % (95-98); ARTERIAL BLOOD GAS PCO2 46 mm/Hg (35-45); ARTERIAL BLOOD GAS TCO2 17.4 mmol.L (22-28)
[2017-03-06 20:08] LABS: ARTERIAL BLOOD GAS PH 7.15 (7.35-7.45)
[2017-03-06 20:37] LABS: MAGNESIUM 2.2 mg/dL (1.7-2.2)
[2017-03-06] MEDS ORDERED: Lactated Ringer's 1,000 ML IV SCH (20:45)
[2017-03-06] MEDS ORDERED: Sodium Bicarbonate 8.4% 150 MEQ in Dextrose 5% In Water 1,000 ML IV SCH (20:45)
[2017-03-06 20:48] LABS: INR 1.34 (0.93-1.08); PARTIAL THROMBOPLASTIN TIME 25.1 Seconds (25.1-36.5); PROTHROMBIN TIME 15.4 SECONDS (9.4-12.5); T4 7.5 ug/dL (5.5-11.0)
[2017-03-06 21:01] LABS: T3 0.81 ng/mL (0.97-1.69)
--- NOTE | 2017-03-06 21:10 | PCM.RRT ---
<Lauro Mejias - Last Filed: 03/06/17 21:01> RENTAL CAR DELIVERER Nurse Assessment - Situation Date: 03/06/17 Time RENTAL CAR DELIVERER was called: 18:52 RENTAL CAR DELIVERER Responder Arrival Time: 18:52 RENTAL CAR DELIVERER Location:: [address] [place] [address] Room Number: 566/1 RENTAL CAR DELIVERER Reason for Call: Respiratory Distress RENTAL CAR DELIVERER Called By: RN, Other Disciplines - IV IV Inserted during RENTAL CAR DELIVERER?: Yes IV Fluids Initiated During RENTAL CAR DELIVERER?: Bolus of NS - Respiratory Oxygen Delivery Method: Nasal Cannula @L/min Was the Patient Ventilated with Bag/Mask 100% O2?: Yes Was the Patient Intubated?: Yes Was the Patient Placed on a Ventilator?: Yes (In the ICU) - Ventilator Settings Mode: PRVC - Diagnostic Test Ordered EKG: Yes Chest X-Ray: Yes - Stat Labs Ordered RENTAL CAR DELIVERER Stat Labs Ordered: ABG (abg shock panel with lactic acid) RENTAL CAR DELIVERER Other Labs Ordered: CBC, CMP, Mag, Phos, Coags, Troponin, Thyroid panel CPR started during RENTAL CAR DELIVERER?: No - Vital Signs Vital Sign: Rapid Response Vital Sign Blood Pressure 139/79 Pulse Rate 51 Respiratory Rate 18 Oxygen Saturation 82 - Time RENTAL CAR DELIVERER Ended Time RENTAL CAR DELIVERER Ended: 19:27 - Vital Signs at end of RENTAL CAR DELIVERER Vital Signs at end of RENTAL CAR DELIVERER: Rapid Response End Vital Sign Blood Pressure 75/48 O2 Sat by Pulse Oximetry 82 - Recommendations Notifications: Attending Physician, Consultations, Family or Designated Caregiver I.Reason for RENTAL CAR DELIVERER - A) Acute Change in Patient: (Select all that apply): Staff member or family is worried about patient ( obtunded, desatting to 80-88% SaO2 on 2L NC, agonal breathing, distended belly) , Acute change in mental status Subjective: House Physician Resident Lauro Mejias, PGY-2 Rapid response called at [phone], responded immediately. As per nursing staff at bedside, patient is a 76 yo F who initially presented for possible SBO, conservatively managed for 2 days, vomited today, NGT placed and drained 800cc gastric contents, then patient pulled out NG tube and refused to allow staff or surgical residents to replace. Went down for CT abd/pelvis approximately 2 hours prior to rapid response, was awake and mentating at baseline at that time. After returning to the floor, patient was found to be obtunded with agonal breathing, using accessory muscles, and unresponsive to verbal and physical stimuli. BP found to be 90's/50's, HR 50's-60's, and SaO2 on maxed out nasal canula 88-90%, so patient placed on non-rebreather mask, SaO2 improved to 88-95%, but patient still breathing agonally and still using accessory muscles. 1L NS was started and run wide open to improve pressures. Lungs were notable for uniformly decreased breath sounds in all elizondo (likely due to body habitus), but no pepe wheezes/rales/ronchi were auscultated. Review of charting reveals a history of COPD, HTN, DMII. ABG obtained prior to RENTAL CAR DELIVERER not notable for hypercapnia, hypoxia, or acidosis/alkalosis. New stat ABG shock panel ordered, plus stat CBC/CMP/Mag/Phos/Thyroid panel/Coags/Trop, and EKG and Chest X-ray were ordered. Commercial Real Estate Underwriter (Dr. Riojas) was called to evaluate patient, and determined that patient required intubation. Patient was pre-oxygenated with ambu-bag, and was then intubated by police service technician (please see procedure note for 03/06/17 for further details). C-xray was obtained, confirming placement of ETT, and EKG was obtained showing new onset AFib, which patient was not previously noted to have in her history. Patient was then transferred to ICU and placed on ventilator. After arrival to the ICU, report for CT abd/pelvis arrived, and as per Radiologist from [facility] (Dr. Marisela Avalos) , concerning for likely small bowel perforation secondary to small bowel obstruction likely due to ventral hernia. Surgical team following patient notified, vice president of business development present at bedside after intubation and transfer to ICU. Planning for emergent surgery tomorrow AM after patient adequately volume resuscitated. IV antibiotics restarted as per police service technician, now on Merrem and Vanco IV. Patient's son notified of worsening condition via telephone, is on way to [facility]. PMD (Dr. Cuellar) notified by responding hospitalist attending via phone. Patient examined, reviewed, and discussed with responding hospitalist, Dr. Sewell, and police service technician, Dr. Riojas. - Neurological Status Other (Please specify): Obtunded, not responsive to physical or verbal stimuli - Respiratory Oxygen Delivery Method: Nasal Cannula @L/min (2L at time of RENTAL CAR DELIVERER, then maxed out) , Non Rebreather @%, Intubated (pre-oxygenated with ambu-bag, intubated on floor , continued to be oxygenated with ambu-bag, transferred to ICU, placed on mechanical ventilation) - Constitutional Appears: Toxic, In Acute Distress, Chronically Ill - Head Head Exam: ATRAUMATIC, NORMAL INSPECTION, NORMOCEPHALIC - Eyes Eye Exam: PERRL. absent: Conjunctival injection, Scleral icterus Additional Comments: unable to assess EOMI, not moving eyes spontaneously and not following commands - Respiratory Exam Respiratory Exam: Accessory Muscle Use, Decreased Breath Sounds (uniformly decreased breath sounds in all elizondo (possibly due to body habitus)), Prolonged Expiratory Phase, Respiratory Distress. absent: Rales, Rhonchi, Wheezes, Stridor, NORMAL BREATHING PATTERN - Cardiovascular Exam Cardiovascular Exam: Bradycardia (intermittently bradycardic, rate 50's-60's on bedside monitoring during rapid response), Irregular Rhythm, +S1, +S2. absent: REGULAR RHYTHM, RRR - GI/Abdominal Exam GI & Abdominal Exam: Distended, Firm. absent: Soft, Diminished Bowel Sounds, Hyperactive Bowel Sounds, Hypoactive Bowel Sounds, Normal Bowel Sounds Additional comments: absent bowel sounds, large ventral hernia along RUQ and RLQ with palpable loops of stool-filled bowel - Neurological Exam Additional exam: obtunded and unresponsive to physical or verbal stimuli no spontaneous movement of eyes or extremities GCS 3 (prior to intubation) Plan - Assessment of Findings&Treatment Plan -Intubated, ETT placement confirmed with portable chest xray -Stat ABG shock panel, cbc, cmp, mg, phos, trop, coags, thyroid panel ordered, f /u -EKG obtained at bedside, concerning for new-onset AFib -Read from prior CT abd/pelvis obtained, discussed with [facility] radiologist who called in result, concerning for likely small bowel perforation, surgery team called and made aware, planning for OR tomorrow -Restarted on IV antibiotics, Merrem and Vanco -transferred to ICU <Shital Sewell - Last Filed: 03/09/17 15:39> RENTAL CAR DELIVERER Nurse Assessment - Vital Signs Vital Sign: Rapid Response Vital Sign Blood Pressure 139/79 Pulse Rate 51 Respiratory Rate 18 Oxygen Saturation 82 - Vital Signs at end of RENTAL CAR DELIVERER Vital Signs at end of RENTAL CAR DELIVERER: Rapid Response End Vital Sign Blood Pressure 75/48 Pulse Rate 49 O2 Sat by Pulse Oximetry 82 Attending/Attestation - Attestation I have personally seen and examined this patient.: Yes I have fully participated in the care of the patient.: Yes I have reviewed all pertinent clinical information, including history, physical exam and plan: Yes Notes (Text): 03/09/17 15:37 attending note; Patient seen and examined during rapid response. Patient is a 76-year-old female with a past medical history of hypertension, diabetes is admitted with small bowel obstruction. after coming back the from the CAT scan the patient became and responsive, hypotensive and hypoxic. patient intubated by police service technician. Stabilized and transferred to ICU. Case discussed with PMD Dr. Dominique in detail. Patient will be closely followed by surgery. Patient's son informed by the nurse. Continue to monitor closely in ICU.
[2017-03-06] MEDS ORDERED: Propofol 10 mg/ml 1,000 MG/100 ML VIAL IV PRN (21:42)
--- NOTE | 2017-03-06 21:47 | PCM.PROC ---
<Lauro Mejias - Last Filed: 03/06/17 21:38> Procedures Attestation:: I certify that I have explained the specified Operation(s) or Procedure(s), risks, benefits and reasonable alternatives to the Patient and/or other person responsible. The opportunity was given to ask questions and all questions answered - Intubation Sedative: Etomidate Laryngoscope: Luis Manuel Assist Device Used: Other (Stylette) ET Tube Size: 7.5 ET Tube Secured at Depth: 23cm ET Tube Secured Locarion: Lips ET Tube Placement Confirmation: Visualized Passing Through Cords, Breath Sounds Equal Bilaterally, No Breath Sounds Over Epigastrum, Confirmation w/Capnometry Patient Tolerated Procedure: Well Procedure Immediate Complications: None Additional comments: Intubated by Dr. Riojas Pre-oxygenated with ambu-bag prior to intubation <Rj Riojas - Last Filed: 03/07/17 17:21> Attending/Attestation - Attestation I have personally seen and examined this patient.: Yes I have fully participated in the care of the patient.: Yes I have reviewed all pertinent clinical information, including history, physical exam and plan: Yes Notes (Text): 03/07/17 17:15 Patient was preoxygenated with 100% fi02 via ambu bag, high flow 02 was provided throughout the procedure. Patient was sedated with ethomidate as BP was low (patient was emergently intubated on the med/surg del real--too unstable for intrahospital transfer with unsecured airways--hypoxemic, unresponsive, hypotensive). 1L NS was given, Direct laryngoscopy performed with Mac3. VC visualized, trachea cannulated with 7.5F ET. Position confirmed by change in color of end tidal c02, gastric and b/l lung auscultation. CXR confirmed ET position prior to moving patient to ICU. Afterward patient was safely moved to ICU
[2017-03-06 22:02] LABS: TROPONIN I 1.16 ng/mL
[2017-03-06] MEDS: Meropenem IV 1 gm in NS 50 ML IVPB SCH (22:30)
--- NOTE | 2017-03-06 22:56 | PCM.PROC ---
<Stef Polk - Last Filed: 03/06/17 22:56> Procedures Attestation:: I certify that I have explained the specified Operation(s) or Procedure(s), risks, benefits and reasonable alternatives to the Patient and/or other person responsible. The opportunity was given to ask questions and all questions answered - Central Line Placement Right Internal Jugular Triple Lumen Catheter Aseptic technique was employed throughout the procedure: Hand Hygiene done prior to procedure, Full sterile barriers (mask, hair cover, sterile gown, sterile gloves), Full body sterile drape, Chloraprep Antiseptic: 30 second prep for IJ or SC sites CVP Time Out Performed: Yes Pt. Placed on Pulse Ox Monitor: Yes Central Line Prep: Chlorhexidine-Alcohol Combination Ultrasound Used for Placement: Yes Central Line Lumen Inserted: triple Central Line Length: 16 cm Post Procedure: Sutured in Place, Good Blood Return, All Ports Aspirated, Flushed, Capped, Sterile Dressing Applied Secured by: Suture Post procedure dressing: Chlorhexidine disc (Biopatch) Post Procedure X-Ray: Yes Patient Tolerated Procedure: Well, No Complications <Viet Hammonds MD - Last Filed: 03/07/17 08:53> Attending/Attestation - Attestation I have personally seen and examined this patient.: Yes I have fully participated in the care of the patient.: Yes I have reviewed all pertinent clinical information, including history, physical exam and plan: Yes Notes (Text): -I was present in the room and supervised the procedure, which was performed by both the IM resident and surgical garment inspector together (using U/S). There were no complications. Post procedure chest x-ray shows appropriate placement of TLC and no evidence of pneumothorax. Patient tolerated procedure well and without any difficulties.
--- NOTE | 2017-03-06 23:17 | RAD ---
EXAM: XR Chest, 1 View EXAM DATE/TIME: 03/06/2017 10:21 PM CLINICAL HISTORY: 76 years old, female; Device placement; Other: Tlc placement; Additional info: Confirm tlc placement TECHNIQUE: Frontal view of the chest. COMPARISON: Chest radiographs done earlier on the same day, at 7:23 PM FINDINGS: LIMITATIONS: The left lung base is partially cut off of the radiograph. LUNGS: Lungs appear clear radiographically, without evidence of significant focal consolidation/infiltrate or of diffuse pulmonary vascular congestion. PLEURAL SPACE: No pneumothorax or pleural effusions seen. HEART: Heart appears mildly enlarged. MEDIASTINUM: Thoracic aorta is mildly ectatic. Mediastinal contour is stable. BONES/JOINTS: Bony structures appear demineralized. TUBES, LINES AND DEVICES: Endotracheal tube is in satisfactory position, terminating approximately 4 cm above the edilson. Enteric tube courses into the upper abdomen/stomach, but its tip is below the margin of the film. Right central venous catheter terminates in satisfactory position, in the superior vena cava. UPPER ABDOMEN: Surgical clips in the right upper quadrant. IMPRESSION: - Satisfactory position of the central line and enteric tube. No pneumothorax seen. - Mild cardiomegaly. - See above for remaining findings.
[2017-03-07] MEDS ORDERED: Lactated Ringer's 1,000 ML IV SCH ×2 (00:15→05:30)
[2017-03-07 00:30] LABS: VENOUS BLOOD GAS BASE EXCESS -12.8 mmol/L (0.0-2.0); VENOUS BLOOD GAS PO2 51 mm/Hg (30-55)
[2017-03-07 00:57] LABS: VENOUS BLOOD PH 7.09 (7.32-7.43)
[2017-03-07] MEDS ORDERED: Sodium Chloride 0.9% 1,000 ML IV SCH (01:00)
[2017-03-07 01:23] LABS: ARTERIAL BLOOD GAS HCO3 15.7 mmol/L (21-28); ARTERIAL BLOOD GAS HEMOGLOBIN 13.4 g/dL (11.7-17.4); ARTERIAL BLOOD GAS O2 SAT 99.1 % (95-98); ARTERIAL BLOOD GAS TCO2 17.3 mmol.L (22-28)
[2017-03-07] MEDS ORDERED: Sodium Bicarbonate (8.4%) 50 Meq Syringe IVP ONE ×7 (01:24→06:23)
[2017-03-07 01:48] LABS: ARTERIAL BLOOD GAS PCO2 43 mm/Hg (35-45); ARTERIAL BLOOD GAS PH 7.16 (7.35-7.45)
[2017-03-07 01:51] LABS: ALB/GLOB RATIO 0.8 (1.1-1.8); CALCIUM 7.6 mg/dL (8.4-10.5)
[2017-03-07 02:03] VITALS: TEMP 102.9
[2017-03-07] MEDS ORDERED: Dextrose 50% SYRINGE Inj (50 ml) ONE ×3 (02:50→07:52)
[2017-03-07] MEDS ORDERED: Amiodarone 150 mg/D5W 100 ml 150 MG/100 ML BAG ONE (03:11)
[2017-03-07 03:13] LABS: HEMOGLOBIN 12.1 g/dL (12.0-16.0); MEAN CELL VOLUME 95.5 fl (80.0-105.0); MEAN CORPUSCULAR HEMOGLOBIN 28.6 pg (25.0-35.0); MEAN PLATELET VOLUME 9.8 fl (7.0-11.0); RBC 4.23 10^6/uL (3.5-6.1); RED CELL DISTRIBUTION WIDTH 15.4 % (11.5-14.5); WHITE BLOOD COUNT 21.9 10^3/ul (4.5-11.0)
[2017-03-07] MEDS ORDERED: Amiodarone 360 mg/D5W 200 ml 360 MG/200 ML BAG IV SCH ×2 (03:15→09:15)
--- NOTE | 2017-03-07 03:27 | CP.PCM.PN ---
Subjective - Date & Time of Evaluation Date of Evaluation: 03/07/17 Time of Evaluation: 03:24 - Subjective Subjective: Code Blue Note Code Aravind called at 2:43 AM to ICU 128-4. Rapid response team responded immediately and patient was noted to be in PEA. ACLS initiated as per protocol. Patient received a total of 5 epinephrine, 3 amps of bicarbonate, shocked after vtach at 200J Objective - Vital Signs/Intake and Output Vital Signs (last 24 hours): Temp Pulse Resp BP Pulse Ox 102.9 F H 116 H 33 H 124/77 100 03/06/17 22:00 03/07/17 02:00 03/06/17 23:30 03/07/17 01:47 03/07/17 02:00 Intake and Output: 03/06/17 03/07/17 18:59 06:59 Intake Total 25 Output Total 800 Balance -800 25 - Medications Medications: Current Medications Docusate Sodium (Colace Liquid) 100 mg PO TID [facility] Last Admin: 03/06/17 14:43 Dose: Not Given Famotidine (Pepcid) 20 mg IVP BID [facility] Last Admin: 03/06/17 09:25 Dose: 20 mg NOREPINEPHRINE BIT/0.9 % NACL (Levophed 4 Mg/ 250 Ml Ns Premixed) 4 mg in 250 mls @ 15 mls/hr IV .[id number] PRN; Protocol; 4 MCG/MIN PRN Reason: TITRATE PER MD ORDER Last Titration: 03/06/17 23:26 Dose: 12 mcg/min, 45 mls/hr Meropenem (Merrem Iv 1 Gm Premix) 50 mls @ 100 mls/hr IVPB Q8 ALEXANDRE PRN Reason: Protocol Last Admin: 03/06/17 22:30 Dose: 100 mls/hr Vancomycin HCl (Vancomycin 1gm) 1 gm in 250 mls @ 167 mls/hr IVPB Q12H ALEXANDRE PRN Reason: Protocol Sodium Bicarbonate 150 meq/ (Dextrose) 1,150 mls @ 200 mls/hr IV .Q5H45M [facility] Last Admin: 03/06/17 22:31 Dose: 200 mls/hr Propofol (Diprivan) 1,000 mg in 100 mls @ 3.497 mls/hr IV .Q24H PRN; Protocol; 5 MCG/KG/MIN PRN Reason: TITRATE PER MD ORDER Amiodarone HCl/Dextrose (Nexterone 360 Mg In D5w 200 Ml (Premix)) 360 mg in 200 mls @ 33.333 mls/hr IV .Q6H ALEXANDRE; 1 MG/MIN PRN Reason: Protocol Ondansetron HCl (Zofran Inj) 4 mg IVP Q6H PRN PRN Reason: Nausea/Vomiting Oxycodone/Acetaminophen (Percocet 5/325 Mg Tab) 1 tab PO Q4H PRN PRN Reason: Pain, moderate (4-7) Stop: 03/09/17 10:09 Pantoprazole Sodium (Protonix Inj) 40 mg IVP DAILY ALEXANDRE - Labs Labs: 03/07/17 03:00 03/07/17 01:15 PT 15.4 SECONDS (9.4-12.5) H 03/06/17 20:00 INR 1.34 (0.93-1.08) H 03/06/17 20:00 APTT 25.1 Seconds (25.1-36.5) 03/06/17 20:00
--- NOTE | 2017-03-07 03:37 | CP.PCM.PN ---
<Stef Polk - Last Filed: 03/07/17 03:32> Subjective - Date & Time of Evaluation Date of Evaluation: 03/07/17 Time of Evaluation: 03:32 - Subjective Subjective: Code Blue Note Code blue called at 2:43am to ICU 128-4. Rapid response team responded immediately. Patient was noted to be in PEA and ACLS was initiated as per protocol. Patient received a total of 5 doses of epinephine, 3 amps of bicarbonate, 2 doses of D50 (fingerstick blood glucose noted to be 74), 1g of Magnesium and one dose of calcium gluconate. Patient was shocked at 200J for pulseless ventricular tachycardia. ROSC was subsequently achieved at 3:00AM. Patient started on amiodarone, STAT labs were ordered and patient's levophed was titrated up. Patient was additionally started on vasopressin. See nursing notes/orders for further details. Objective - Vital Signs/Intake and Output Vital Signs (last 24 hours): Temp Pulse Resp BP Pulse Ox 102.9 F H 116 H 33 H 124/77 100 03/06/17 22:00 03/07/17 02:00 03/06/17 23:30 03/07/17 01:47 03/07/17 02:00 Intake and Output: 03/06/17 03/07/17 18:59 06:59 Intake Total 25 Output Total 800 Balance -800 25 - Medications Medications: Current Medications Docusate Sodium (Colace Liquid) 100 mg PO TID [facility] Last Admin: 03/06/17 14:43 Dose: Not Given Famotidine (Pepcid) 20 mg IVP BID [facility] Last Admin: 03/06/17 09:25 Dose: 20 mg NOREPINEPHRINE BIT/0.9 % NACL (Levophed 4 Mg/ 250 Ml Ns Premixed) 4 mg in 250 mls @ 15 mls/hr IV .[id number] PRN; Protocol; 4 MCG/MIN PRN Reason: TITRATE PER MD ORDER Last Titration: 03/06/17 23:26 Dose: 12 mcg/min, 45 mls/hr Meropenem (Merrem Iv 1 Gm Premix) 50 mls @ 100 mls/hr IVPB Q8 ALEXANDRE PRN Reason: Protocol Last Admin: 03/06/17 22:30 Dose: 100 mls/hr Vancomycin HCl (Vancomycin 1gm) 1 gm in 250 mls @ 167 mls/hr IVPB Q12H ALEXANDRE PRN Reason: Protocol Sodium Bicarbonate 150 meq/ (Dextrose) 1,150 mls @ 200 mls/hr IV .Q5H45M [facility] Last Admin: 03/06/17 22:31 Dose: 200 mls/hr Propofol (Diprivan) 1,000 mg in 100 mls @ 3.497 mls/hr IV .Q24H PRN; Protocol; 5 MCG/KG/MIN PRN Reason: TITRATE PER MD ORDER Amiodarone HCl/Dextrose (Nexterone 360 Mg In D5w 200 Ml (Premix)) 360 mg in 200 mls @ 33.333 mls/hr IV .Q6H ALEXANDRE; 1 MG/MIN PRN Reason: Protocol Vasopressin 20 units/ Dextrose 101 mls @ 9.09 mls/hr IV .Q11H7M ALEXANDRE; 0.03 U/MIN PRN Reason: Protocol Ondansetron HCl (Zofran Inj) 4 mg IVP Q6H PRN PRN Reason: Nausea/Vomiting Oxycodone/Acetaminophen (Percocet 5/325 Mg Tab) 1 tab PO Q4H PRN PRN Reason: Pain, moderate (4-7) Stop: 03/09/17 10:09 Pantoprazole Sodium (Protonix Inj) 40 mg IVP DAILY ALEXANDRE - Labs Labs: 03/07/17 03:00 03/07/17 01:15 PT 15.4 SECONDS (9.4-12.5) H 03/06/17 20:00 INR 1.34 (0.93-1.08) H 03/06/17 20:00 APTT 25.1 Seconds (25.1-36.5) 03/06/17 20:00 <Viet Hammonds MD - Last Filed: 03/07/17 08:25> Objective - Vital Signs/Intake and Output Vital Signs (last 24 hours): Temp Pulse Resp BP Pulse Ox 102.9 F H 116 H 33 H 0/0 L 100 03/06/17 22:00 03/07/17 02:00 03/06/17 23:30 03/07/17 03:57 03/07/17 02:00 Intake and Output: 03/07/17 03/07/17 06:59 18:59 Intake Total 5025 Output Total 50 Balance 4975 - Medications Medications: Current Medications Docusate Sodium (Colace Liquid) 100 mg PO TID [facility] Last Admin: 03/06/17 14:43 Dose: Not Given Famotidine (Pepcid) 20 mg IVP BID [facility] Last Admin: 03/06/17 09:25 Dose: 20 mg NOREPINEPHRINE BIT/0.9 % NACL (Levophed 4 Mg/ 250 Ml Ns Premixed) 4 mg in 250 mls @ 15 mls/hr IV .[id number] PRN; Protocol; 4 MCG/MIN PRN Reason: TITRATE PER MD ORDER Last Titration: 03/06/17 23:26 Dose: 12 mcg/min, 45 mls/hr Meropenem (Merrem Iv 1 Gm Premix) 50 mls @ 100 mls/hr IVPB Q8 ALEXANDRE PRN Reason: Protocol Last Admin: 03/07/17 06:54 Dose: 100 mls/hr Vancomycin HCl (Vancomycin 1gm) 1 gm in 250 mls @ 167 mls/hr IVPB Q12H ALEXANDRE PRN Reason: Protocol Sodium Bicarbonate 150 meq/ (Dextrose) 1,150 mls @ 200 mls/hr IV .Q5H45M [facility]RE Last Admin: 03/06/17 22:31 Dose: 200 mls/hr Propofol (Diprivan) 1,000 mg in 100 mls @ 3.497 mls/hr IV .Q24H PRN; Protocol; 5 MCG/KG/MIN PRN Reason: TITRATE PER MD ORDER Vasopressin 20 units/ Dextrose 101 mls @ 9.09 mls/hr IV .Q11H7M ALEXANDRE; 0.03 U/MIN PRN Reason: Protocol Last Admin: 03/07/17 03:57 Dose: 9.09 mls/hr Amiodarone HCl/Dextrose (Nexterone 360 Mg In D5w 200 Ml (Premix)) 360 mg in 200 mls @ 33.333 mls/hr IV .Q6H ONE; 1 MG/MIN PRN Reason: Protocol Stop: 03/07/17 09:14 Amiodarone HCl/Dextrose (Nexterone 360 Mg In D5w 200 Ml (Premix)) 360 mg in 200 mls @ 16.667 mls/hr IV .Q12H ALEXANDRE; 0.5 MG/MIN PRN Reason: Protocol Epinephrine HCl 1 mg/ Sodium (Chloride) 51 mls @ 3.06 mls/hr IV .[id number] PRN; Protocol; 1 MCG/MIN PRN Reason: TITRATE PER MD ORDER Dopamine HCl/Dextrose (Dopamine 400mg/250ml D5w) 400 mg in 250 mls @ 21.857 mls /hr IV .[id number] PRN; Protocol; 5 MCG/KG/MIN PRN Reason: TITRATE PER MD ORDER Ondansetron HCl (Zofran Inj) 4 mg IVP Q6H PRN PRN Reason: Nausea/Vomiting Oxycodone/Acetaminophen (Percocet 5/325 Mg Tab) 1 tab PO Q4H PRN PRN Reason: Pain, moderate (4-7) Stop: 03/09/17 10:09 Pantoprazole Sodium (Protonix Inj) 40 mg IVP DAILY ALEXANDRE - Labs Labs: 03/07/17 03:00 03/07/17 03:00 PT 15.4 SECONDS (9.4-12.5) H 03/06/17 20:00 INR 1.34 (0.93-1.08) H 03/06/17 20:00 APTT 25.1 Seconds (25.1-36.5) 03/06/17 20:00 Attending/Attestation - Attestation I have personally seen and examined this patient.: Yes I have fully participated in the care of the patient.: Yes I have reviewed all pertinent clinical information, including history, physical exam and plan: Yes Notes (Text): -I agree with the above Dex Nazario note completed by the resident physician with the following additions and/or changes: -Dex Nazario called at 2:43am due to PEA/Asystole -ACLS protocol initiated with chest compressions -IV Bicarb, Epinephrine, D50, Calcium Gluc, Mag and IVFs all administered during the code -Near end of code (prior to ROSC), pt went into V-tach and therefore was shocked 200J x 1 -After ROSC, monitor continued to show V-tach rhythm and therefore pt given Amioadarone 150mg IV x 1 followed by Amioadrone Drip (to be given for 6 hours) -After Amio drip, patients rhythm on monitor appeared to normalize -Levophed drip up titrated after ROSC and Vasopressin also started -Will continue with IVFs containing 3AMPs bicarbonate -Will check stat BMP, ABG, Mag and Phos now -Underlying etiology due to septic shock secondary to perforated bowel -Dr. Cool updated on events immediately after Code and he plans to evaluate patient soon -Patients son called for update but no answer (voicemail left for him to call [facility] KATHERINE) -Patient's prognosis very poor
[2017-03-07] MEDS ORDERED: Vasopressin 20 UNITS in Dextrose 5% In Water 100 ML IV SCH (03:45)
--- NOTE | 2017-03-07 04:17 | PN ---
DATE: Mi Hermelindo seen on rounds for small-bowel obstruction. Initially, was improving but now is not. No real change in the patient's status. We will plan an operation in the morning around 9 o'clock. NG tube is re-inserted, about a liter came out. Her abdomen is unchanged, distended. Adarsh Cool MD
[2017-03-07 04:18] LABS: ALBUMIN 1.8 g/dL (3.0-4.8); CALCIUM 10.4 mg/dL (8.4-10.5); MAGNESIUM 3.5 mg/dL (1.7-2.2)
[2017-03-07 04:28] LABS: VENOUS BLOOD GAS BASE EXCESS -18.1 mmol/L (0.0-2.0); VENOUS BLOOD GAS PO2 66 mm/Hg (30-55)
[2017-03-07 04:33] LABS: VENOUS BLOOD PH 6.95 (7.32-7.43)
[2017-03-07] MEDS: Sodium Bicarbonate (8.4%) 50 Meq Syringe IVP ONE ×5 (06:00→07:17)
[2017-03-07] MEDS ORDERED: Amiodarone 360 mg/D5W 200 ml 360 MG/200 ML BAG IV ONE (06:29)
[2017-03-07] MEDS: Meropenem IV 1 gm in NS 50 ML IVPB SCH (06:54)
--- NOTE | 2017-03-07 07:04 | CON ---
DATE: 03/06/2017 HISTORY OF PRESENT ILLNESS: This is a 76-year-old lady with history of hypertension, peripheral vascular disease, COPD, diabetes mellitus type 2 who presented to [facility] ER with small bowel obstruction. Initially, she was managed conservatively with n.p.o., IV fluids, antibiotics. She still did not improve and she was considered for semi-elective surgery tomorrow. Today, rapid response was called due to patient's change in mental status. The patient was emergently intubated and transferred to ICU for further monitoring and management. Meanwhile, CAT scan of the abdomen and pelvis that was done shortly before rapid response showed perforation of the bowel. Dr. Cool (surgery) was notified immediately. The patient's ABG showed severe metabolic acidosis with substantially elevated lactic acid level. Fluid resuscitation, antibiotics, and supportive measures started in the ICU. No nausea, no vomiting, no diarrhea. PAST MEDICAL HISTORY: Hypertension, peripheral vascular disease, COPD, diabetes mellitus type 2, arthritis, back pain, ventral hernia, and incontinence. PAST SURGICAL HISTORY: Cholecystectomy and hysterectomy. FAMILY HISTORY: Noncontributory. ALLERGIES: NKDA. SOCIAL HISTORY: No alcohol or illicit drug abuse. No tobacco smoking. MEDICATION IN THE HOSPITAL: Colace, Pepcid, lactated Ringer's bolus, meropenem, Zofran p.r.n., bicarb drip, vancomycin. REVIEW OF SYSTEMS: Review of 12-organ system other than mentioned in history of present illness is negative. PHYSICAL EXAMINATION: VITAL SIGNS: Heart rate 61, blood pressure 80/60-159/79, respiratory rate 18. HEENT: Head and neck atraumatic. LUNGS: Clear to auscultation bilaterally. HEART: Regular rate and rhythm. S1, S2 normal. ABDOMEN: Soft, but appears to be tender, mildly distended. MUSCULOSKELETAL: Trace bilateral pedal and ankle edema. NEUROLOGIC: The patient is sedated. SKIN: Moist. PSYCHIATRIC: The patient is sedated. LABORATORY DATA: ABG showed 7.15, pCO2 of 46, pO2 of 230, lactic acid 6.5. Sodium 140, potassium 3.9, chloride 109, glucose 123 and FiO2 100%. WBC 18.3, hemoglobin 14.9, platelet count 366. CMP is pending. INR 1.34. CAT scan of the abdomen and pelvis revealed free intraperitoneal air compatible with bowel perforation, the site of perforation appears to be in the small bowel. There is a small bowel obstruction due to a ventral hernia in the anterior pelvic wall containing multiple distal small bowel loops, cannot exclude ischemia of the small bowel. Moderate pelvic and abdominal free fluid. ASSESSMENT: This is a 76-year-old lady with septic shock secondary to peritonitis due to viscous perforation in the setting of small bowel obstruction, complicated by multiorgan system failure including encephalopathy, respiratory failure, and severe lactic acidosis. PLAN: Neuro: The patient is sedated, intubated. Pulmonary: We will continue with protective lung ventilation strategy including tidal volume of 6 mL to 8 mL per predicted body weight and plateau pressure less than 30. At present time, the patient is getting aggressive fluid resuscitation. Once septic shock resolved and the patient is resuscitated, conservative fluid management will be considered. Meanwhile, conservative oxygen management. Head of bed elevated to 135 degrees. Oral hygiene, VAP bundle. Cardiovascular: Patient is in distributive shock due to peritonitis, secondary to viscous perforation. We will continue with fluid resuscitation. The patient received 1 liter bolus of lactated Ringer's and will be on bicarb drip at 200 mL per hour. CVL will be placed and if BP drops vasopressors will be started.. Gastrointestinal: The patient has peritonitis due to viscous perforation. vice president client services air pollution engineer and Dr. Cool were notified after initial ABC stabilization to consider emergent surgery . Antibiotics started, fluid resuscitation is ongoing. The patient will be n.p.o. Infectious Disease: The patient is on broad-spectrum antibiotics. ID service will be following the patient as well. Septic workup done. Blood culture, urine culture, sputum culture, procalcitonin is ordered. Endocrine: We will continue with maintaining blood glucose within 140-180 range according to NICE-SUGAR trial. Renal: Causey catheter will be placed in. Fluid resuscitation is ongoing. Goal of urine output more than 0.5 mL/kg/hour. We will continue to maintain euvolemia, euglycemia, and mean arterial pressure more than 65. We will try to avoid nephrotoxic medication, but not at expense of treatment of underlying disease. We will continue to follow creatinine level and urine output. Hand over at bedside to nuisance wildlife specialist financial associate at 8:00 pm ccm time 40 min Rj Riojas MD [facility] # [id number]
--- NOTE | 2017-03-07 07:46 | PN ---
DATE: Mi Casarez is seen in the ICU. The events of the night reviewed. A CAT scan is done which shows free air. She did not respond to resuscitation. Presently, she is on multiple pressors. The patient now has a blood pressure that is barely palpable, on multiple pressors, is not a candidate for surgery. I do not think she will survive no matter what we do. Multiple phone calls were made to the family and no response. the son was here after the initial rapid response. We will try to call him again. Adarsh Cool MD
[2017-03-07] MEDS ORDERED: EPINEPHrine- 1 MG in Sodium Chloride 0.9% 50 ML IV PRN (07:58)
[2017-03-07] MEDS ORDERED: DOPamine 400mg/250ml D5W 400 MG/250 ML BAG IV PRN (07:59)
[2017-03-07 08:15] LABS: BASO # 0.44 K/mm3 (0.0-2.0); EOS % 0.2 % (1.5-5.0); HEMOGLOBIN 11.7 g/dL (12.0-16.0); MEAN CORPUSCULAR HEMOGLOBIN 28.7 pg (25.0-35.0); MEAN CORPUSCULAR HGB CONC 29.3 g/dl (31.0-37.0); MONO % 4.5 % (1.0-6.0); PLATELET COUNT 214 10^3/uL (120.0-450.0); RBC 4.08 10^6/uL (3.5-6.1); RED CELL DISTRIBUTION WIDTH 15.6 % (11.5-14.5); WHITE BLOOD COUNT 22.1 10^3/ul (4.5-11.0)
--- NOTE | 2017-03-07 08:21 | CP.PCM.PN ---
Subjective - Date & Time of Evaluation Date of Evaluation: 03/07/17 Time of Evaluation: 07:30 - Subjective Subjective: General Surgery- Dr. Cool Patient seen and examined at bedside. Rapid response was called, patient was intubated sent to the unit, there after code blue was called, PEA ACLS protocal was initated. Pt was shocked for VTach. ROSC was achieved at 0300. Amiodarone drip was started, levophed was titrated up and was started on vasopressin. Another Code blue was called and patient . Causey 15cc overnight prior to second code blue, carotid pulse non-palpable, biphasic dopplerable NGT 100cc bilious Objective - Vital Signs/Intake and Output Vital Signs (last 24 hours): Temp Pulse Resp BP Pulse Ox 102.9 F H 116 H 33 H 0/0 L 100 03/06/17 22:00 03/07/17 02:00 03/06/17 23:30 03/07/17 03:57 03/07/17 02:00 Intake and Output: 03/07/17 03/07/17 06:59 18:59 Intake Total 25 Balance 25 - Medications Medications: Current Medications Docusate Sodium (Colace Liquid) 100 mg PO TID [facility] Last Admin: 03/06/17 14:43 Dose: Not Given Famotidine (Pepcid) 20 mg IVP BID [facility] Last Admin: 03/06/17 09:25 Dose: 20 mg Hydrocortisone Sodium Succinate (Solu-Cortef) 100 mg IVP ONCE ONE Stop: 03/07/17 08:00 NOREPINEPHRINE BIT/0.9 % NACL (Levophed 4 Mg/ 250 Ml Ns Premixed) 4 mg in 250 mls @ 15 mls/hr IV .[id number] PRN; Protocol; 4 MCG/MIN PRN Reason: TITRATE PER MD ORDER Last Titration: 03/06/17 23:26 Dose: 12 mcg/min, 45 mls/hr Meropenem (Merrem Iv 1 Gm Premix) 50 mls @ 100 mls/hr IVPB Q8 ALEXANDRE PRN Reason: Protocol Last Admin: 03/07/17 06:54 Dose: 100 mls/hr Vancomycin HCl (Vancomycin 1gm) 1 gm in 250 mls @ 167 mls/hr IVPB Q12H ALEXANDRE PRN Reason: Protocol Sodium Bicarbonate 150 meq/ (Dextrose) 1,150 mls @ 200 mls/hr IV .Q5H45M ALEXANDRE Last Admin: 03/06/17 22:31 Dose: 200 mls/hr Propofol (Diprivan) 1,000 mg in 100 mls @ 3.497 mls/hr IV .Q24H PRN; Protocol; 5 MCG/KG/MIN PRN Reason: TITRATE PER MD ORDER Vasopressin 20 units/ Dextrose 101 mls @ 9.09 mls/hr IV .Q11H7M ALEXANDRE; 0.03 U/MIN PRN Reason: Protocol Last Admin: 03/07/17 03:57 Dose: 9.09 mls/hr Amiodarone HCl/Dextrose (Nexterone 360 Mg In D5w 200 Ml (Premix)) 360 mg in 200 mls @ 33.333 mls/hr IV .Q6H ONE; 1 MG/MIN PRN Reason: Protocol Stop: 03/07/17 09:14 Amiodarone HCl/Dextrose (Nexterone 360 Mg In D5w 200 Ml (Premix)) 360 mg in 200 mls @ 16.667 mls/hr IV .Q12H ALEXANDRE; 0.5 MG/MIN PRN Reason: Protocol Epinephrine HCl 1 mg/ Sodium (Chloride) 51 mls @ 3.06 mls/hr IV .[id number] PRN; Protocol; 1 MCG/MIN PRN Reason: TITRATE PER MD ORDER Dopamine HCl/Dextrose (Dopamine 400mg/250ml D5w) 400 mg in 250 mls @ 21.857 mls /hr IV .[id number] PRN; Protocol; 5 MCG/KG/MIN PRN Reason: TITRATE PER MD ORDER Ondansetron HCl (Zofran Inj) 4 mg IVP Q6H PRN PRN Reason: Nausea/Vomiting Oxycodone/Acetaminophen (Percocet 5/325 Mg Tab) 1 tab PO Q4H PRN PRN Reason: Pain, moderate (4-7) Stop: 03/09/17 10:09 Pantoprazole Sodium (Protonix Inj) 40 mg IVP DAILY ALEXANDRE - Labs Labs: 03/07/17 03:00 03/07/17 03:00 PT 15.4 SECONDS (9.4-12.5) H 03/06/17 20:00 INR 1.34 (0.93-1.08) H 03/06/17 20:00 APTT 25.1 Seconds (25.1-36.5) 03/06/17 20:00 - Constitutional Appears: In Acute Distress - Eye Exam Eye Exam: absent: EOMI, Scleral icterus - Respiratory Exam Additional comments: Intubated - Cardiovascular Exam Cardiovascular Exam: +S1, +S2 - GI/Abdominal Exam GI & Abdominal Exam: Guarding, Rigid. absent: Soft, Rebound - Extremities Exam Extremities Exam: absent: Calf Tenderness Additional comments: non-palpable pulses - Neurological Exam Neurological Exam: absent: Alert - Skin Skin Exam: Erythema Assessment and Plan - Assessment and Plan (Free Text) Assessment: 76F ventral hernia x2; Small bowel obstruction CT scan shows free air. Attempt to call the son overnight 4 times. Voicemail 3 times. Unable to get in contact with family members. Patient decompensated, code blue x2- overnight and in the AM. Pt
--- NOTE | 2017-03-07 08:31 | PCM.RRT ---
<RosamariaLucy - Last Filed: 03/07/17 09:20> CAMPAIGN MANAGER Nurse Assessment - Situation Date: 03/07/17 Time CAMPAIGN MANAGER was called: 07:42 CAMPAIGN MANAGER Responder Arrival Time: 07:42 CAMPAIGN MANAGER Location:: Critical Care Unit Room Number: 128-4 CAMPAIGN MANAGER Reason for Call: Bradycardia CAMPAIGN MANAGER Called By: RN - IV IV Inserted during CAMPAIGN MANAGER?: No IV Fluids Initiated During CAMPAIGN MANAGER?: Bolus of NS - Respiratory Oxygen Delivery Method: Intubated (pre-oxygenated with ambu-bag, intubated on floor, continued to be oxygenated with ambu-bag, transferred to ICU, placed on mechanical ventilation) Was the Patient Ventilated with Bag/Mask 100% O2?: Yes (patient manually ventilated ) Was the Patient Intubated?: No (Patient already intubated ) Was the Patient Placed on a Ventilator?: No (In the ICU) - Ventilator Settings Mode: Patient manually ventilated during code - Medication Medications Administered During CAMPAIGN MANAGER: During Code Blue patient given: 1. Epinephrine x 2. 2. Bicarb 1 amp. 3. D50x3. 4. Solucortef 100. Patient had second code at 8:01am and was given: 1. Epinephrine. 2. Dopamine. 3. Epinephrine - Diagnostic Test Ordered EKG: No Chest X-Ray: No - Stat Labs Ordered CAMPAIGN MANAGER Other Labs Ordered: CBC, CMP, Mag, Phos, Coags, Troponin, Thyroid panel CPR started during CAMPAIGN MANAGER?: Yes - Vital Signs Vital Sign: Rapid Response Vital Sign Blood Pressure None (unobtainable) Pulse Rate 30s Respiratory Rate 16 Oxygen Saturation 100 - Finger Stick Blood Glucose Finger Stick Blood Glucose: 20 - [place] Coma Scale Coma Scale Eye Opening: No response Coma Scale Motor: None Coma Scale Verbal: No response - Time CAMPAIGN MANAGER Ended Time CAMPAIGN MANAGER Ended: 08:10 - Vital Signs at end of CAMPAIGN MANAGER Vital Signs at end of CAMPAIGN MANAGER: Rapid Response End Vital Sign Blood Pressure Unobtainable Pulse Rate Pulse-less O2 Sat by Pulse Oximetry 0% - Recommendations 5) CAMPAIGN MANAGER Level of Care Recommendations: Notifications: Attending Physician, Consultations, Family or Designated Caregiver (Called multiple times and left message) I.Reason for CAMPAIGN MANAGER - A) Acute Change in Patient: (Select all that apply): Acute change in heart rate less than 50 or greater than 120 Subjective: This is code Blue note - Neurological Status Other (Please specify): Patient intubated and sedated - Respiratory Oxygen Delivery Method: Intubated (Patient already intubated-mechanical ventilation during code ) - Constitutional Appears: In Acute Distress - Head Head Exam: ATRAUMATIC, NORMAL INSPECTION, NORMOCEPHALIC - Eyes Eye Exam: absent: PERRL (L eye reactive, R eye non-reactive) - Cardiovascular Exam Cardiovascular Exam: Bradycardia. absent: REGULAR RHYTHM - GI/Abdominal Exam GI & Abdominal Exam: Distended, Mass (Lower umbilical area ) Additional comments: discoloration of lower abdomen - Neurological Exam Additional exam: intubated not on sedation and non-responsive - Extremities Exam Extremities Exam: absent: Normal Inspection (edematous, dusky in color, and dry skin ) Plan - Assessment of Findings&Treatment Plan - Code blue was called at 7:42am - CAMPAIGN MANAGER team responded immediately - CPR was performed - Patient found to have PEA - Throughout code patient was given: - 2 doses of Epi - 1 amp of Bicarb - 3 amps of D50 (blood glucose found to be <20) - Solucortef 100mg - Patient continued to have PEA - CPR continued and patient found to have pulse - Code was stopped and Dopamine drip was started at 7:58am - Patient found to be pulseless. Code blue called at 8:01am - Patient found to have PEA - CPR resumed - Throughout code patient given: - Epinephrine - Dopamine - Epinephrine - Blood sugar was found to be 121 - Patient continued to have PEA - Patient at 8:10am. Of note during these events, patient was already intubated and ventilated through bag mask. She was already on pressors and had a fluid bolus wide open throughout the code. <Rj Riojas - Last Filed: 03/07/17 17:54> CAMPAIGN MANAGER Nurse Assessment - Vital Signs Vital Sign: Rapid Response Vital Sign Blood Pressure 139/79 Pulse Rate 51 Respiratory Rate 18 Oxygen Saturation 82 - Vital Signs at end of CAMPAIGN MANAGER Vital Signs at end of CAMPAIGN MANAGER: Rapid Response End Vital Sign Blood Pressure 75/48 Pulse Rate 49 O2 Sat by Pulse Oximetry 82 Attending/Attestation - Attestation I have personally seen and examined this patient.: Yes I have fully participated in the care of the patient.: Yes I have reviewed all pertinent clinical information, including history, physical exam and plan: Yes Notes (Text): 03/07/17 17:53 PEA/bradycardia arrest. ACLS protocol followed.
--- NOTE | 2017-03-07 09:08 | CP.PCM.PRO ---
<Lucy Blank - Last Filed: 03/07/17 09:04> Pronouncement of Note - Clinical Findings Physical Exam: No Response Verbal/Painful Stimuli, Absent Peripheral Pulses{ Carotid & Femoral}, Absent Heart & Breath Sounds, Absence of Vital Signs - Pronouncement Time Time of Pronouncement of : 08:10 Additional Comments: Code Blue x 2. Please refer to DERMATOLOGIST MANAGING PARTNER note for more details - Notifications Pronouncement Notifications: Family Notified (called multiple times (no response ) and left message ), Atending Notified Tool Setter Notified: No - Autopsy Autopsy Requested: No [place] [id number] <Rj Riojas - Last Filed: 03/07/17 17:54> Attending/Attestation - Attestation I have personally seen and examined this patient.: Yes I have fully participated in the care of the patient.: Yes I have reviewed all pertinent clinical information: Yes
--- NOTE | 2017-03-07 09:12 | DS ---
HISTORY OF PRESENT ILLNESS: This is a 76-year-old female, who had come into the hospital with small bowel obstruction. The patient initially started to have improving of her symptoms. Her diet was advanced. Then, she started declining. The patient became more confused. A CAT scan was ordered that showed perforation. The patient was taken to the ICU. She had to be intubated prior to going to the ICU because of worsening of her condition. The patient was placed on pressors because of septic shock. She was unstable this morning to be able to go to the OR. After I had seen the patient, a code blue was called and the patient was unsuccessfully resuscitated. The patient . I did call the patient's son early this morning when I initially saw the patient, but was not able to get in touch with him. I left a message for him to call back. Because of the critical nature of the patient's condition, I did speak to the overnight returned goods receiving clerk and he was also not able to again contact with the son. Yesterday, when the rapid response initially happened, the patient's son was contacted and he was aware of the change in his mother's condition and the fact that she is critical and intubated. I believe he did come by to visit her as well. According to the staff, the patient may have been inebriated according to the returned goods receiving clerk I spoke to in the overnight shift. The patient . PHYSICAL EXAMINATION: VITAL SIGNS: Initial vitals were a temperature of 102.9. The patient did have a pulse, it was in the 110s. They were having difficult time getting blood pressure. The systolic blood pressure was in the 60s. GENERAL: The patient is lying in bed, flat, comfortable. HEENT: No oral lesion. Anicteric sclerae. Moist mucosa. NECK: No JVD, adenopathy, or thyromegaly. CARDIOVASCULAR: S1 and S2, regular. No murmurs, rubs, or gallops. LUNGS: Clear to auscultation bilaterally. No wheeze, rales, or rhonchi. ABDOMEN: Bowel sounds are positive, soft, nontender and nondistended. EXTREMITIES: no cyanosis, clubbing or edema. DISCHARGE DIAGNOSES: 1. Bowel perforation. 2. Septic shock. 3. Anemia, chronic. 4. Hyponatremia, resolved. 5. Delirium. 6. Shock liver. PLAN: The patient was on multiple pressors with dopamine, vasopressin, norepinephrine. The patient was also placed on Protonix, bicarb drip was given to the patient. The patient had acute kidney injury as well. Creatinine was 2.1. The bicarb of the patient decreased to 20. The patient . Mele Cuellar MD
[2017-03-07 09:49] LABS: BAND 6 % (0-2); CORRECTED WBC 20.3 K/mm3 (4.5-11.0); LYMPHOCYTE 29 % (22.0-35.0); METAMYELOCYTE 2 %; MONOCYTE 7 % (1.0-6.0); NEUTROPHIL 56 % (50.0-70.0); NUCLEATED RED BLOOD CELL 9 %; PLATELET ESTIMATE NORMAL (NORMAL)
[2017-03-07 09:50] VITALS: BP 113/81; PULSE 78; RESP 14; O2SAT 66
[2017-03-07 09:50] LABS: GIANT PLATELETS PRESENT; LARGE PLATELETS PRESENT
--- NOTE | 2017-03-07 10:31 | RAD ---
HISTORY: ET tube placement COMPARISON: No prior. FINDINGS: LUNGS: No active pulmonary disease. PLEURA: No significant pleural effusion identified, no pneumothorax apparent. CARDIOVASCULAR: Normal. OSSEOUS STRUCTURES: No significant abnormalities. VISUALIZED UPPER ABDOMEN: Normal. OTHER FINDINGS: ETT above the edilson. IMPRESSION: ETT above the edilson.
--- NOTE | 2017-03-07 11:04 | CP.PCM.PCO ---
Physician Communication Note - Physician Communication Note Physician Communication Note: last night I noted pt. crashing, started Vanco and Merrem by ICU and agree
--- NOTE | 2017-03-10 13:54 | PQF RESP ---
03/10/17 Dr. Cuellar, Respiratory failure and hypoxia are documented, with patient being intubated and ventilated on 03/06-03/07. Please specify whether respiratory failure was acute/ chronic, or both. Thank you. Acute Respirtory Failure Clarification of your documentation is requested to better reflect the severity of illness and intensity of treatment of your patient. Indicators present [] Use of Home Oxygen [] Respiratory rate > 28 or <8/min (Labored respirations) [] PCO2 > 50 mm Hg or (Hypercapnia) (somnolence) [] PaO2 < 60 mm Hg or Hypoxemia (confusion) [] ABG blood gas pH < 7.35 [] SpO2 < 90% sat on Room Air [] Cyanosis [] Unable to Speak in Full Sentences [] Use of Accessory Muscles / Tripoding [] Wheezing [] Other: [] Location in the medical record that reflects the above clinical findings: [] Treatment Provided: [] PHYSICIAN'S RESPONSE Based on your medical judgment of the clinical indicators outlined above, are you treating this patient for a known or suspected: [] Acute Respiratory Failure (hypoxia or hypercapnia) [] Chronic Respiratory Failure (hypoxia or hypercapnia) [] Acute on Chronic Respiratory Failure (hypoxia or hypercapnia) [] Hypoxemia please specify ACUTE, CHRONIC or ACUTE on CHRONIC [] Other []_ [] If unable to determine, please check the box, sign and date. Present On Admission (POA) Indicator: [] Present at the time of admission [] Not present at the time of admission [] Clinically Undetermined In responding to this query, please exercise your independent professional judgment. The fact that a question is asked does not imply that any particular answer is desired or expected. Thank you for your clarification on this documentation. If you have any questions please call:[ ] * Thank you, [ ] hand drawer in helper Chronic Respiratory Failure Description: Respiratory failure is a syndrome in which the respiratory system fails in one or both of its gas exchange functions: oxygenation and carbon dioxide elimination. In theory, respiratory failure is defined as a Pa02 value of <60 mm/Hg or a PaC02 of >50 mm/Hg. However, these values may be affected by renal compensation. Respiratory failure may be acute or chronic. While acute respiratory failure is characterized by life-threatening derangement in arterial blood gases and acid-base balance, the manifestations of chronic respiratory failure are less dramatic and may not be as readily apparent. Classifications: Respiratory failure may be classified as hypoxemic (usually characterized by Pa02 of <60 mm/Hg) or hypercapnic (usually characterized by PaC02 >50 mm/Hg) and either may be acute or chronic. Chronic hypercapnic respiratory failure develops over time and allows for renal compensation and an increase in bicarbonate concentration; therefore the pH is usually only slightly decreased. The distinction between acute and chronic hypoxemic respiratory failure cannot readily be made on the basis of ABGs; the clinical markers of chronic hypoxemia, such as polythycemia or cor pulmonale suggest a long standing disorder (chronic hypoxemic respiratory failure). Clinical Indicators: dyspnea at rest or "chronic" dyspnea, concomitant conditions such as polycythemia or cor pulmonale, requirement for continuous oxygen support, forced expiratory volume in one second (FEV1) of 49 or less, pursed lip breathing, "barrel" chest, hyperinflation by CXR, muscle wasting, malnutrition/obesity, poor exercise capacity, peripheral edema, description as a "blue bloater" (usually associated with chronic, obstructive bronchitis) or "pink puffer" (usually associated with emphysema) Risks: Chronic Hypoxemic Respiratory Failure - COPD, pulmonary fibrosis, asthma , pulmonary arterial hypertension, granulomatous lung diseases, congenital heart disease, bronchiectasis, kyphoscoliosis, obesity; Chronic Hypercapnic Respiratory Failure - COPD, severe asthma, myasthenia gravis, polyneuropathy, polio, head and cervical spine injuries, obesity hypoventilation syndrome. Treatment: supplemental oxygen, bronchodilators, corticosteroids, adequate nutrition, lung transplant References: Am. J. Respir. Crit. Care Med. "Global Strategy for the Diagnosis, Management and Prevention of COPD: GOLD Exectuive Summary," Hui Dunn Anzueto - 2007; Proceedings of the [place] [employer] "Mechanisms and Measurements of Dyspnea in COPD," Julisa - 2006; WebMD; Respiratory Failure, Ang Schneider MD - 08/2005; Rigo's Principles of Internal Medicine, 17th edition. Acute Respiratory Failure Acute Respiratory Failure indicators include: ~Respirations >28 ~Air hunger ~Use of accessory muscles of respiration ~Inability to speak in full sentences Cyanosis ~Pulse ox <90% RA or <95% on O2 pH <7.35 or >7.45 ~pO2 < 60 mm Hg (or 10mm below COPD patient's baseline) ~pCO2 >50mm Hg (or 10mm above COPD patient's baseline) "Respiratory failure may be assigned as a principal diagnosis when it is the condition established after study to be chiefly responsible for occasioning admission to the hospital. The fact that the respiratory failure was managed without intubation and mechanical ventilation does not preclude its use." [facility], 3rd r., 1988, p. 7 MTDD
== END 2017-03-07 08:10 | DRG 393 ==
LOC: ED 17:36 → ERH 21:26 → 3RSO 03-03 00:01 → 5RNO 03-03 20:56 → ICU 03-06 19:38
PROVIDERS: ADMIT Internal Medicine Medical Oncology; ATTEND Internal Medicine Nephrology
PROC: 5A1935Z Respiratory Ventilation, Less than 24 Consecutive Hours (ICD-10-PCS; principal; 2017-03-06)
PROC: 0BH18EZ Insertion of Endotracheal Airway into Trachea, Via Natural or Artificial Opening Endoscopic (ICD-10-PCS; 2017-03-06)
PROC: 05HY33Z Insertion of Infusion Device into Upper Vein, Percutaneous Approach (ICD-10-PCS; 2017-03-06)
PROC: B543ZZA Ultrasonography of Right Jugular Veins, Guidance (ICD-10-PCS; 2017-03-06)
PROC: 5A12012 Performance of Cardiac Output, Single, Manual (ICD-10-PCS; 2017-03-07)
PROC: 5A12012 Performance of Cardiac Output, Single, Manual (ICD-10-PCS; 2017-03-07)
DX: K43.6 Other and unspecified ventral hernia with obstruction, without gangrene (principal); K63.1 Perforation of intestine (nontraumatic); K72.00 Acute and subacute hepatic failure without coma; R65.21 Severe sepsis with septic shock; J96.01 Acute respiratory failure with hypoxia; A41.9 Sepsis, unspecified organism; G93.40 Encephalopathy, unspecified; K65.9 Peritonitis, unspecified; I47.2 Ventricular tachycardia; E87.2 Acidosis; E87.1 Hypo-osmolality and hyponatremia; Z68.41 Body mass index [BMI] 40.0-44.9, adult; I46.9 Cardiac arrest, cause unspecified; D35.00 Benign neoplasm of unspecified adrenal gland; D64.9 Anemia, unspecified; E11.51 Type 2 diabetes mellitus with diabetic peripheral angiopathy without gangrene; E66.01 Morbid (severe) obesity due to excess calories; E78.5 Hyperlipidemia, unspecified; E87.6 Hypokalemia; F17.210 Nicotine dependence, cigarettes, uncomplicated; I10 Essential (primary) hypertension; I83.90 Asymptomatic varicose veins of unspecified lower extremity; J44.9 Chronic obstructive pulmonary disease, unspecified; K43.9 Ventral hernia without obstruction or gangrene; Z79.84 Long term (current) use of oral hypoglycemic drugs; Z79.899 Other long term (current) drug therapy; Z90.49 Acquired absence of other specified parts of digestive tract; Z90.710 Acquired absence of both cervix and uterus; H26.9 Unspecified cataract; M19.90 Unspecified osteoarthritis, unspecified site; N39.41 Urge incontinence; R40.2412 Glasgow coma scale score 13-15, at arrival to emergency department; R40.2434 Glasgow coma scale score 3-8, 24 hours or more after hospital admission